=== PATIENT | female | born 1970 | race Caucasian/White ===

== ENCOUNTER 2019-09-20 22:48 | Emergency (ER) | payer MEDICAID, OTHER ==
[~2019-09-20] VITALS: Ht 162.6 cm; Wt 69.5 kg
--- OUTSIDE RECORDS SUMMARY | 2019-09-20 22:53 | XMS REPORT | Clinical Summary ---
Author Author Admin, Mirna Cleveland Organization [facility] Address Unknown Phone Unavailable Allergies, Adverse Reactions, Alerts Allergy Name Reaction Description Start Date Severity Status Pr ovider PCN Critical Active Jose castillo MD Conditions or Problems Problem Name Problem Code Onset Date Status Entry Date Provider Comment Standard Description Annotate BMI 31-31.9 Inactive Jose Bobby MD Body Mass Index 31.0- 31.9, adult Obesity Class I (BMI 30-34.9) Inactive Jose Bobby MD Obesity, unspecified Incontinence Female Stress Resolved Jose Bobby MD Stress incontinence, female Rectocele 618.04 Active Jose Bobby MD Rectocele FEMALE STRESS INCONTINENCE 625.6 Active 2 Jose Bobby MD Stress incontinence, female BMI 31-31.9 Inactive Devi Molina Obesity Class I (BMI 30-34.9) Inactive Devi Molina Incontinence Female Stress Inactive Radha Molina Medication List Medication Instructions Start Date Stop Date Generic Name NDC Status Provider Patient Instruction 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 1 tablet daily RANITIDINE HCL TABS 69726061492 Active Jose Bobby MD Active [facility] OMEPRAZOLE 20 MG ORAL TABLET DELAYED RELEASE once daily 08/15 OMEPRAZOLE 39467727810 Active Jose Bobby MD Active Vital Signs Date Name Value Unit Range Description blood pressure, diastolic, repeated by physician 72 BP woodall blood pressure, diastolic 72 mm[Hg] BP woodall blood pressure, systolic, repeated by physician 118 BP sys blood pressure, systolic 118 mm[Hg] BP sys height E&M 64 [in_us] Bdy height pulse rate E&M 62 /min Heart rate temperature E&M 98.1 [degF] Body temp erature weight E&M 185 [lb_av] Weight Measure d blood pressure, diastolic, repeated by physician 70 BP woodall blood pressure, diastolic 70 mm[Hg] BP woodall blood pressure, systolic, repeated by physician 114 BP sys blood pressure, systolic 114 mm[Hg] BP sys height E&M 64 [in_us] Bdy height pulse rate E&M 63 /min Heart rate temperature E&M 98.3 [degF] Body temp erature weight E&M 185 [lb_av] Weight Measure d blood pressure, diastolic, repeated by physician 74 BP woodall blood pressure, diastolic 74 mm[Hg] BP woodall blood pressure, systolic, repeated by physician 122 BP sys blood pressure, systolic 122 mm[Hg] BP sys height E&M 64 [in_us] Bdy height pulse rate E&M 60 /min Heart rate temperature E&M 98.3 [degF] Body temp erature weight E&M 185 [lb_av] Weight Measure d Diagnostic Results Date Name Value Unit Range Description Office Visit: Post-op sling - PMH sexually transmitted disease no risk noted Encounters Code Encounter Date Provider Facility CPT-44454 Level 4 New Patient 12:33:12 CDT J Rafael rosa MD [facility] Procedures Code Procedure Name Date Entry Date Standard Desc ription CPT-67242 Postop F/U Visit 11:03:05 CDT CPT-08171 Postop F/U Visit 10:40:06 CDT
--- OUTSIDE RECORDS SUMMARY | 2019-09-20 22:53 | XMS REPORT | Clinical Summary ---
Author Author Admin, Mirna Cleveland Organization [facility] Address Unknown Phone Unavailable Allergies, Adverse Reactions, [...] Name NDC Status Provider Patient Instruction ACID FOOD STYLIST TABLET 1 tablet daily RANITIDINE HCL TABS 89688381282 Active Jose Bobby MD Active [facility] OMEPRAZOLE 20 MG ORAL TABLET DELAYED RELEASE once daily 08/15 OMEPRAZOLE 47547932544 Active Jose Bobby MD Active Vital Signs [...] noted Encounters Code Encounter Date Provider Facility CPT-01481 Level 4 New Patient 12:33:12 CDT J Rafael rosa MD [facility] Procedures Code Procedure Name Date Entry Date Standard Desc ription CPT-42851 Postop F/U Visit 11:03:05 CDT CPT-90082 Postop F/U Visit 10:40:06 CDT
--- OUTSIDE RECORDS SUMMARY | 2019-09-20 22:53 | XMS REPORT | Clinical Summary ---
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
--- OUTSIDE RECORDS SUMMARY | 2019-09-20 22:53 | XMS REPORT | Clinical Summary ---
Author Author Admin, Mirna Cleveland Organization [facility] Address Unknown Phone Unavailable Allergies, Adverse [...] Name NDC Status Provider Patient Instruction ACID APARTMENT GROUNDSKEEPER TABLET 1 tablet daily RANITIDINE HCL TABS 08357591172 Active Jose Bobby MD Active [facility] OMEPRAZOLE 20 MG ORAL TABLET DELAYED RELEASE once daily 08/15 OMEPRAZOLE 86688097968 Active Jose Bobby MD Active Vital Signs [...] noted Encounters Code Encounter Date Provider Facility CPT-16459 Level 4 New Patient 12:33:12 CDT J Rafael rosa MD [facility] Procedures Code Procedure Name Date Entry Date Standard Desc ription CPT-81201 Postop F/U Visit 11:03:05 CDT CPT-67920 Postop F/U Visit 10:40:06 CDT
--- OUTSIDE RECORDS SUMMARY | 2019-09-20 22:54 | XMS REPORT | Clinical Summary ---
Author Author Admin, Mirna Cleveland Organization [facility] Address Unknown Phone Unavailable Allergies, Adverse [...] Name NDC Status Provider Patient Instruction ACID EMPLOYMENT CASE MANAGER TABLET 1 tablet daily RANITIDINE HCL TABS 93776333381 Active Jose Bobby MD Active [facility] OMEPRAZOLE 20 MG ORAL TABLET DELAYED RELEASE once daily 08/15 OMEPRAZOLE 19263644113 Active Jose Bobby MD Active Vital Signs Date Name Value Unit Range Description blood pressure, diastolic, repeated by physician 70 [...] noted Encounters Code Encounter Date Provider Facility CPT-86892 Level 4 New Patient 12:33:12 CDT J Rafael rosa MD [facility] Procedures Code Procedure Name Date Entry Date Standard Desc ription CPT-37468 Postop F/U Visit 10:40:06 CDT
--- OUTSIDE RECORDS SUMMARY | 2019-09-20 22:54 | XMS REPORT | Clinical Summary ---
Author Author Admin, Mirna Cleveland Organization [facility] Address Unknown Phone Unavailable Allergies, Adverse Reactions, Alerts Allergy Name Reaction Description Start Date Severity Status Pr ovider PCN Critical Active Jose castillo MD Conditions or Problems Problem Name Problem Code Onset Date Status Entry Date Provider Comment Standard Description Annotate BMI 31-31.9 Active Jose Bobby MD Body Mass Index 31.0- 31.9, adult Obesity Class I (BMI 30-34.9) Active Jose Bobby MD Obesity, unspecified Incontinence Female Stress Active Jose Bobby MD Stress incontinence, female Rectocele 618.04 Active Jose Bobby MD Rectocele Medication List Medication Instructions Start Date Stop Date Generic Name NDC Status Provider Patient Instruction 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 COMMERCIAL REAL 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 ASSISTANT TABLET 1 tablet daily RANITIDINE HCL TABS 73606311690 Active Jose Bobby MD Active [facility] OMEPRAZOLE 20 MG ORAL TABLET DELAYED RELEASE once daily 08/15 OMEPRAZOLE 43530314423 Active Jose Bobby MD Active Vital Signs Date Name Value Unit Range Description blood pressure, diastolic, repeated by physician 74 BP woodall blood pressure, diastolic 74 mm[Hg] BP woodall blood pressure, systolic, repeated by physician 122 BP sys blood pressure, systolic 122 mm[Hg] BP sys height E&M 64 [in_us] Bdy height pulse rate E&M 60 /min Heart rate temperature E&M 98.3 [degF] Body temp erature weight E&M 185 [lb_av] Weight Measure d Encounters Code Encounter Date Provider Facility CPT-58966 Level 4 New Patient 12:33:12 CDT Jose rosa MD [facility]
--- OUTSIDE RECORDS SUMMARY | 2019-09-20 22:54 | XMS REPORT | Clinical Summary ---
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
--- OUTSIDE RECORDS SUMMARY | 2019-09-20 22:54 | XMS REPORT | Continuity of Care Document ---
Author Organization Unknown Address Unknown Phone Unavailable Allergies Active Description Code Type Severity Reaction Onset Reported/Identified Relationship to Patient Clinical Status Yes penicillin Drug Severe swelling~hives Medications There is no data. Problems Date Dx Coded Attending Type Code Diagnosis Diagnosed By 08/15/2018 Jose Poole MD N3 9.3 Incontinence Female Stress 08/15/2018 Jose Poole MD N8 1.6 Rectocele 08/15/2018 Jose Poole MD E6 6.9 Obesity Class I (BMI 30-34.9) 08/15/2018 Jose Poole MD Z68.31 BMI 31-31.9 09/07/2018 Jose Poole MD N3 9.3 FEMALE STRESS INCONTINENCE Procedures There is no data. Results Test Result Range CULTURE, URINE - 08/25/19 12:39 CULTURE, URINE, ROUTINE NRG Encounters ACCT No. Visit Date/Time Discharge Status Pt. Type Provider Facility Loc./Unit Complaint [id number] 09/10/2019 13:10:00 09/10/2019 23:59: 59 CLS Outpatient WHIT LUCIO LAC [facility] [id number] 08/25/2019 12:20:00 Document Registration [id number] 09/04/2018 06:27:51 10:38:00 DIS Outpatient ROSENDO POOLE [id number] 10/06/2018 16:07:19 ACT Document Registration [id number] 09/20/2019 22:50:[address] Emergency VINCENZO TYSON, AMEENA Garcia [facility] FS BACK/RIB PAIN [id number] 10/05/2018 17:30:38 ACT Unknown Jose Poole MD
--- OUTSIDE RECORDS SUMMARY | 2019-09-20 22:54 | XMS REPORT | Clinical Summary ---
Author Author Admin, Mirna Cleveland Organization [facility] Address Unknown Phone Unavailable Allergies, [...] Name NDC Status Provider Patient Instruction ACID BODY TRIMMER TABLET 1 tablet daily RANITIDINE HCL TABS 76251188673 Active Jose Bobby MD Active [facility] OMEPRAZOLE 20 MG ORAL TABLET DELAYED RELEASE once daily 08/15 OMEPRAZOLE 01808048323 Active Jose Bobby MD Active Vital Signs [...] d Encounters Code Encounter Date Provider Facility CPT-24825 Level 4 New Patient 12:33:12 CDT Jose rosa MD [facility]
--- OUTSIDE RECORDS SUMMARY | 2019-09-20 22:54 | XMS REPORT | Clinical Summary ---
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
--- OUTSIDE RECORDS SUMMARY | 2019-09-20 22:54 | XMS REPORT | Clinical Summary ---
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
--- OUTSIDE RECORDS SUMMARY | 2019-09-20 22:54 | XMS REPORT | Clinical Summary ---
Author Author Admin, Mirna Cleveland Organization [facility] Address Unknown Phone Unavailable Allergies, Adverse [...] Rectocele FEMALE STRESS INCONTINENCE 625.6 Active 2 Jsoe Bobby MD Stress incontinence, female BMI 31-31.9 Inactive Devi Molina Obesity Class I (BMI 30-34.9) Inactive Devi Molina Incontinence Female Stress Inactive Radha Molina Medication List Medication Instructions Start Date Stop Date Generic Name NDC Status Provider Patient Instruction ACID SPORTS PHYSIOTHERAPIST TABLET 1 tablet daily RANITIDINE HCL TABS 76921307291 Active Jose Bobby MD Active [facility] OMEPRAZOLE 20 MG ORAL TABLET DELAYED RELEASE once daily 08/15 OMEPRAZOLE 83518807208 Active Jose Bobby MD Active Vital Signs [...] noted Encounters Code Encounter Date Provider Facility CPT-80736 Level 4 New Patient 12:33:12 CDT J Rafael rosa MD [facility] Procedures Code Procedure Name Date Entry Date Standard Desc ription CPT-30843 Postop F/U Visit 10:40:06 CDT
--- OUTSIDE RECORDS SUMMARY | 2019-09-20 22:54 | XMS REPORT | Clinical Summary ---
Author Author Admin, Mirna Cleveland Organization [facility] Address Unknown Phone Unavailable Allergies, [...] Name NDC Status Provider Patient Instruction ACID HEALTHCARE PROF TABLET 1 tablet daily RANITIDINE HCL TABS 13696676956 Active Jose Bobby MD Active [facility] OMEPRAZOLE 20 MG ORAL TABLET DELAYED RELEASE once daily 08/15 OMEPRAZOLE 79903778220 Active Jose Bobby MD Active Vital Signs [...] noted Encounters Code Encounter Date Provider Facility CPT-09506 Level 4 New Patient 12:33:12 CDT J Rafael rosa MD [facility] Procedures Code Procedure Name Date Entry Date Standard Desc ription CPT-35645 Postop F/U Visit 10:40:06 CDT
--- OUTSIDE RECORDS SUMMARY | 2019-09-20 22:54 | XMS REPORT | Clinical Summary ---
Author Author Admin, Mirna Cleveland Organization [facility] Address Unknown Phone Unavailable Allergies, Adverse [...] Name NDC Status Provider Patient Instruction ACID GREEN FEED ATTENDANT TABLET 1 tablet daily RANITIDINE HCL TABS 23054941756 Active Jose Bobby MD Active [facility] OMEPRAZOLE 20 MG ORAL TABLET DELAYED RELEASE once daily 08/15 OMEPRAZOLE 32686723353 Active Jose Bobby MD Active Vital Signs [...] d Encounters Code Encounter Date Provider Facility CPT-56599 Level 4 New Patient 12:33:12 CDT Jose rosa MD [facility]
--- OUTSIDE RECORDS SUMMARY | 2019-09-20 22:54 | XMS REPORT | Clinical Summary ---
Author Author Admin, Mirna Cleveland Organization 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
--- NOTE | 2019-09-20 23:08 | ED Back Pain ---
General Chief Complaint: Back Problems Stated Complaint: BACK/RIB PAIN Source of Information: Patient Exam Limitations: No Limitations History of Present Illness Date Seen by Provider: Sep 20, 2019 Time Seen by Provider: 22:58 Location: Lumbar Spine Timing/Duration: 3-4 Days Severity: Moderate Pain/Injury Location: Back Radiation: Other (none) Method of Injury: Fall (while jumping rope) Associated Symptoms: muscle spasms; No fever, No weakness, No numbness in legs/feet, No sensory/motor loss; lower back pain; No loss of bladder control, No loss of bowel control Allergies and Home Medications Allergies Coded Allergies: Penicillins (Verified Allergy, Unknown, 09/20/19) Patient Home Medication List Home Medication List Reviewed: Yes Review of Systems Constitutional: no symptoms reported EENTM: no symptoms reported Respiratory: no symptoms reported Cardiovascular: no symptoms reported Gastrointestinal: no symptoms reported Genitourinary: no symptoms reported : No (s/p hysterectomy) Musculoskeletal: see HPI, back pain Skin: no symptoms reported Psychiatric/Neurological: No Symptoms Reported Past Szktesp-Xiobfj-Etjtge Hx Past Med/Social Hx: Reviewed Nursing Past Med/Soc Hx Patient Social History Alcohol Use: Occasionally Uses Recreational Drug Use: No Smoking Status: Current Everyday Smoker 2nd Hand Smoke Exposure: No Recent Foreign Travel: No Contact w/Someone Who Travel: No Recent Hopitalizations: No Physical Abuse: No Sexual Abuse: No Mistreated: No Fear: No Seasonal Allergies Seasonal Allergies: No Past Medical History Surgeries: Yes Appendectomy, Gallbladder, Hysterectomy Respiratory: No Cardiac: No Neurological: No Genitourinary: No Gastrointestinal: No Musculoskeletal: No Endocrine: No HEENT: No Cancer: No Psychosocial: No Integumentary: No Blood Disorders: No Physical Exam Vital Signs Vital Signs - First Documented 09/20/19 22:59 Temp 36.4 Pulse 120 Resp 20 B/P (MAP) 155/82 (106) Pulse Ox 96 O2 Delivery Room Air Capillary Refill : normal Height, Weight, BMI Height: '" Weight: lbs. oz. kg; BMI Method: General Appearance: No Apparent Distress, WD/WN; No Anxious HEENT: PERRL/EOMI, Normal ENT Inspection, Pharynx Normal Neck: Full Range of Motion, Normal Inspection, Non Tender, Supple Cardiovascular: Regular Rate, Rhythm, No Edema, No Gallop, No JVD, No Murmur, Normal Peripheral Pulses Respiratory: Chest Non Tender, Lungs Clear, Normal Breath Sounds, No Accessory Muscle Use, No Respiratory Distress Peripheral Pulses: 2+ Dorsalis Pedis (R), 2+ Left Dors-Pedis (L) Gastrointestinal: Normal Bowel Sounds, No Organomegaly, No Pulsatile Mass, Non Tender, Soft Back: Normal Inspection, No CVA Tenderness, Decreased Range of Motion, Vertebral Tenderness (upper lumbar region) Extremity: Normal Capillary Refill, Normal Inspection, Normal Range of Motion, Non Tender, No Calf Tenderness Neurologic/Psychiatric: Alert, Oriented x3, No Motor/Sensory Deficits, Normal Mood/Affect, 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-XII Norm as Tested, Other (reflexes 2+/4+ throughout both LE) Skin: Normal Color, Warm/Dry Lymphatic: No Adenopathy Progress/Results/Core Measures Results/Orders Lab Results Laboratory Tests Test 09/20/19 23:14 Range/Units Urine Color DARK YELLOW Urine Clarity CLEAR Urine pH 6.0 5-9 Urine Specific [place] 1.025 H 1.016-1.022 Urine Protein NEGATIVE NEGATIVE Urine Glucose (UA) NEGATIVE NEGATIVE Urine Ketones TRACE H NEGATIVE Urine Nitrite NEGATIVE NEGATIVE Urine Bilirubin 2+ H NEGATIVE Urine Urobilinogen >=8.0 < = 1.0 MG/DL Urine Leukocyte Esterase TRACE H NEGATIVE Urine RBC (Auto) NEGATIVE NEGATIVE Urine RBC 0-2 /HPF Urine WBC 5-10 H /HPF Urine Squamous Epithelial Cells 5-10 /HPF Urine Crystals NONE /LPF Urine Bacteria FEW H /HPF Urine Casts NONE /LPF Urine Mucus LARGE H /LPF Urine Culture Indicated YES My Orders Orders - AMEENA LOYA MD Ua Culture If Indicated (09/20/19 23:02) Lumbar Spine 2 Or 3 View (09/20/19 23:14) Urine Culture (09/20/19 23:14) Vital Signs/I&O 09/20/19 22:59 Temp 36.4 Pulse 120 Resp 20 B/P (MAP) 155/82 (106) Pulse Ox 96 O2 Delivery Room Air Progress Progress Note : Time: 23:07 Progress Note Will proceed with x-rays of lumbar region and UA. No pain in chest area or CVAT. Pt understands and agrees with plan. Diagnostic Imaging Diagonstic Imaging: Xray Plain Films/CT/US/NM/MRI: other (lumbar spine) Comments No acute changes noted. Reviewed: Reviewed by Me, Reviewed/Discussed Departure Impression Primary Impression: Lumbar sprain Qualified Codes: S33.5XXA - Sprain of ligaments of lumbar spine, initial encounter Additional Impression: Lumbar contusion Qualified Codes: S30.0XXA - Contusion of lower back and pelvis, initial encounter Disposition: 01 HOME, SELF-CARE Condition: Stable Departure-Patient Inst. Decision time for Depature: 23:46 Referrals: GOLDEN RUSSELL MD Primary Care Physician 2-3 days Patient Instructions: Lumbar Muscle Strain (DC) Add. Discharge Instructions: continue your ibuprofen. Be careful with muscle relaxant as it can make you drowsy. Do not drive or perform other hazardous activities while you are taking this. All discharge instructions reviewed with patient and/or family. Voiced understanding. Scripts Cyclobenzaprine HCl (Cyclobenzaprine HCl) 10 Mg Tablet 10 MG PO Q8H PRN for SPASMS, #15 TAB 0 Refills Prov: AMEENA LOYA MD 09/20/19 AMEENA LOYA MD Sep 20, 2019 23:08
[2019-09-20 23:26] LABS: BILIRUBIN,URINE 2+ (NEGATIVE); CLARITY,URINE CLEAR; COLOR,URINE DARK YELLOW; GLUCOSE, URINE (UA) NEGATIVE (NEGATIVE); KETONES,URINE TRACE (NEGATIVE); NITRITE,URINE NEGATIVE (NEGATIVE); PROTEIN,URINE NEGATIVE (NEGATIVE)
[2019-09-20 23:27] LABS: BACTERIA,URINE FEW /HPF; LEUKOCYTE ESTERASE ,URINE TRACE (NEGATIVE); RBC,URINE 0-2 /HPF
[2019-09-20] MEDS ORDERED: CYCL10TA9 PO (23:48)
[2019-09-20 23:50] VITALS: BP 155/82
--- NOTE | 2019-09-21 09:32 | Diagnostic Imaging Report ---
INDICATION: Pain COMPARISON: None available TECHNIQUE: 3 radiographs of the lumbar spine dated 09/20/2019. FINDINGS: Surgical clips are present within the right upper quadrant of the abdomen. 5 lumbar type vertebral bodies are present. Alignment of the lumbar spine is well maintained. Vertebral body heights are well-maintained. Disc space heights are well-maintained. No acute fracture or dislocation. The sacroiliac joints appear intact. Vascular calcifications versus postsurgical changes associated with the pelvis bilaterally. IMPRESSION: No acute osseous abnormality. Dictated by: Dictated on workstation # [id number]
== END 2019-09-20 23:50 | disposition home or self-care (01) ==
LOC: ER FS 22:50
DX: S33.5XXA Sprain of ligaments of lumbar spine, initial encounter (principal); Z88.0 Allergy status to penicillin; W18.39XA Other fall on same level, initial encounter; Y93.56 Activity, jumping rope
CPT/HCPCS: 72100; 81000; 87088

== ENCOUNTER 2019-10-06 21:50 | Emergency (ER) | payer MEDICAID ==
[~2019-10-06] VITALS: Ht 162.5 cm; Wt 86.3 kg
[~2019-10-06 21:50] MED LIST: CYCL10TA9 PO
--- OUTSIDE RECORDS SUMMARY | 2019-10-06 21:57 | XMS REPORT | Continuity of Care Document ---
Author Organization Unknown Address Unknown Phone Unavailable Allergies Active Description Code Type Severity Reaction Onset Reported/Identified Relationship to Patient Clinical Status Yes penicillin Drug Severe swelling~hives Yes No Known Drug Allergies [id number] Drug Allergy Unknown N/A 09/20/2019 Yes Penicillins [id number] Drug Aller gy Unknown N/A 09/20/2019 Medications There is no data. Problems Date Dx Coded Attending Type Code Diagnosis Diagnosed By 08/15/2018 Jose Poole MD N3 9.3 Incontinence Female Stress 08/15/2018 Jose Poole MD N8 1.6 Rectocele 08/15/2018 Jose Poole MD E6 6.9 Obesity Class I (BMI 30-34.9) 08/15/2018 Jose Poole MD Z68.31 BMI 31-31.9 09/07/2018 Jose Poole MD N3 9.3 FEMALE STRESS INCONTINENCE 09/20/2019 AMEENA LOYA MD, Ot M54.5 LOW BACK PAIN 09/20/2019 AMEENA LOYA MD, Ot S33.5XX A SPRAIN OF LIGAMENTS OF LUMBAR SPINE, INI 09/20/2019 AMEENA LOYA MD, Ot W18.39X A OTHER FALL ON SAME LEVEL, INITIAL ENCOUN 09/20/2019 AMEENA LOYA MD, Ot Y93.56 ACTIVITY, JUMPING ROPE 09/20/2019 AMEENA LOYA MD, Ot Z88.0 ALLERGY STATUS TO PENICILLIN Procedures There is no data. Results Test Result Range CULTURE, URINE - 08/25/19 12:39 CULTURE, URINE, ROUTINE NRG Complete urinalysis with reflex to cultu re - 09/20/19 23:14 Urine color determination DARK YELLOW N RG Urine clarity determination CLEAR NR G Urine pH measurement by test strip 6.0 5-9 Specific gravity of urine by test strip 1.025 1.016-1.022 Urine protein assay by test strip, semi-quantitative NEGATIVE NEGATIVE Urine glucose detection by automated test strip NE GATIVE NEGATIVE Erythrocytes detection in urine sediment by light micr oscopy NEGATIVE NEGATIVE Urine ketones detection by automated test strip TR MIGDALIA NEGATIVE Urine nitrite detection by test strip NEGATIVE NEGATIVE Urine total bilirubin detection by test strip 2+ NEGATIVE Urine urobilinogen measurement by automated test strip (mass/volume) >= mg/dL < = 1.0 Urine leukocyte esterase detection by dipstick TRA CE NEGATIVE Automated urine sediment erythrocyte cou nt by microscopy (number/high power field) [HPF] NRG Automated urine sediment leukocyte count by microscopy (number/high power field) [HPF] NRG Bacteria detection in urine sediment by light microsco py FEW NRG Squamous epithelial cells detection in u rine sediment by light microscopy 5-10 NRG Crystals detection in urine sediment by light microsco py NONE NRG Casts detection in urine sediment by light microscopy NONE NRG Mucus detection in urine sediment by light microscopy LARGE NRG Complete urinalysis with reflex to culture YES NRG Bacterial urine culture - 09/20/19 23:14 Bacterial urine culture 3 OR MORE NRG COLONY COUNT >100,000/ML NRG SUSCEPTIBILITY (GRAM POSITIVE) SUGGESTING PROBABLE NRG MRSA SCREEN COLLECTION CONTAMINATION WITH SKIN NRG RAPID ID ERINN. NO SUSCEPTIBILITY PERFORMED NRG Encounters ACCT No. Visit Date/Time Discharge Status Pt. Type Provider Facility Loc./Unit Complaint [id number] 09/10/2019 13:10:00 09/10/2019 23:59: 59 [facility] [id number] 08/25/2019 12:20:00 Document Registration [id number] 09/04/2018 06:27:51 9 10:38:00 DIS Outpatient ROSENDO POOLE [facility] ops [id number] 10/06/2018 16:07:19 ACT Document Registration [id number] 09/20/2019 22:50:00 020 23:50:00 DIS Emergency VINCENZO TYSON, AMEENA Kumari a [facility] ER FS BACK/RIB PAIN [id number] 10/06/2019 21:53:[address] Emergency MISA TYSON, MARIA M Frankel [facility] ER FS BILATERL SWELLING IN LEGS [id number] 10/05/2018 17:30:38 ACT Unknown Jose Poole MD
--- NOTE | 2019-10-06 22:05 | ED Lower Extremity ---
General Chief Complaint: Lower Extremity Stated Complaint: BILATERL SWELLING IN LEGS Source: patient, RN notes reviewed, old records History of Present Illness Date Seen by Provider: Oct 06, 2019 Time Seen by Provider: 21:55 Initial Comments This patient is a 49-year-old female that presents to the emergency department with complaint of bilateral lower leg swelling. Patient states this is been going on for about 3 or 4 days. Patient states she has chronic low back pain has been going on for some time. Patient has a scheduled appointment with her PCP tomorrow. Patient denies any shortness of breath. Patient is aware that we do not have ultrasound available and we will offered full medical screening exam to her capabilities. Patient states understanding. Onset: last week Pain/Injury Location: bilateral leg Allergies and Home Medications Allergies Coded Allergies: Penicillins (Verified Allergy, Unknown, 09/20/19) Home Medications Cyclobenzaprine HCl 10 Mg Tablet, 10 MG PO Q8H PRN for SPASMS Prescribed by: AMEENA LOYA on 09/20/19 [id number] Patient Home Medication List Home Medication List Reviewed: Yes Review of Systems Constitutional: No no symptoms reported, No see HPI, No chills, No diaphoresis, No dizziness, No fever, No malaise, No weakness, No weight gain, No weight loss, No other EENTM: No see HPI, No no symptoms reported, No ear discharge, No hearing loss, No ear pain, No blurred vision, No double vision, No eye pain, No tearing, No vision loss, No dental problems, No hoarseness, No mouth pain, No mouth swellin g, No epistaxis, No nose congestion, No nose pain, No throat pain, No throat swelling, No other Respiratory: No no symptoms reported, No see HPI, No cough, No dyspnea on exertion, No hemoptysis, No orthopnea, No phlegm, No short of breath, No stridor, No wheezing, No other Cardiovascular: No no symptoms reported, No see HPI, No chest pain, No edema, No Hx of Intervention, No palpitations, No syncope, No vascular heart diseas, No other Gastrointestinal: No RUQ, No LUQ, No RLQ, No LLQ, No no symptoms reported, No see HPI, No abdominal pain, No constipation, No diarrhea, No dysphagia, No hematemesis, No heartburn, No jaundice, No loss of appetite, No melena, No nausea, No vomiting, No other Musculoskeletal: see HPI, joint swelling Skin: No no symptoms reported, No see HPI, No change in color, No change in hair/nails, No dryness, No hx of skin cancer, No lesions, No lumps, No pruritus, No rash, No other All Other Systems Reviewed Negative Unless Noted: Yes Past Qftdaam-Inmtir-Gvclge Hx Patient Social History 2nd Hand Smoke Exposure: No Recent Foreign Travel: No Contact w/Someone Who Travel: No Recent Hopitalizations: No Seasonal Allergies Seasonal Allergies: No Past Medical History Surgeries: Yes Appendectomy, Gallbladder, Hysterectomy Respiratory: No Cardiac: No Neurological: No Genitourinary: No Gastrointestinal: No Musculoskeletal: No Endocrine: No HEENT: No Cancer: No Psychosocial: No Integumentary: No Blood Disorders: No Physical Exam Vital Signs Vital Signs - First Documented 10/06/19 21:59 Temp 36.6 Pulse 138 Resp 20 B/P (MAP) 141/92 (108) Pulse Ox 95 O2 Delivery Room Air Capillary Refill : Height, Weight, BMI Height: '" Weight: lbs. oz. kg; 26.00 BMI Method: General Appearance: WD/WN, no apparent distress Cardiovascular: normal peripheral pulses, regular rate, rhythm, no edema, no gallop, no JVD, no murmur Respiratory: chest non-tender, lungs clear, normal breath sounds, no respiratory distress, no accessory muscle use Gastrointestinal: normal bowel sounds, non tender, soft, no organomegaly, no pulsatile mass Legs: bilateral leg swelling Ankles: bilateral ankle swelling Skin: normal color, warm/dry Progress/Results/Core Measures Results/Orders Lab Results Laboratory Tests Test 10/06/19 22:20 Range/Units White Blood Count 13.3 H 4.3-11.0 10^3/uL Red Blood Count 4.04 L 4.35-5.85 10^6/uL Hemoglobin 12.6 11.5-16.0 G/DL Hematocrit 37 35-52 % Mean Corpuscular Volume 93 80-99 FL Mean Corpuscular Hemoglobin 31 25-34 PG Mean Corpuscular Hemoglobin Concent 34 32-36 G/DL Red Cell Distribution Width 17.0 H 10.0-14.5 % Platelet Count 42 L 130-400 10^3/uL Mean Platelet Volume 11.8 H 7.4-10.4 FL Neutrophils (%) (Auto) 69 42-75 % Lymphocytes (%) (Auto) 19 12-44 % Monocytes (%) (Auto) 6 0-12 % Eosinophils (%) (Auto) 0 0-10 % Basophils (%) (Auto) 1 0-10 % Neutrophils # (Auto) 9.2 H 1.8-7.8 X 10^3 Lymphocytes # (Auto) 2.6 1.0-4.0 X 10^3 Monocytes # (Auto) 0.9 0.0-1.0 X 10^3 Eosinophils # (Auto) 0.0 0.0-0.3 10^3/uL Basophils # (Auto) 0.1 0.0-0.1 10^3/uL D-Dimer > 20.00 *H 0.00-0.49 UG/ML Sodium Level 137 135-145 MMOL/L Potassium Level 3.8 3.6-5.0 MMOL/L Chloride Level 97 L 98-107 MMOL/L Carbon Dioxide Level 21 21-32 MMOL/L Anion Gap 19 H 5-14 MMOL/L Blood Urea Nitrogen 12 7-18 MG/DL Creatinine 0.57 L 0.60-1.30 MG/DL Estimat Glomerular Filtration Rate > 60 BUN/Creatinine Ratio 21 Glucose Level 114 H 70-105 MG/DL Calcium Level 9.0 8.5-10.1 MG/DL Corrected Calcium 9.2 8.5-10.1 MG/DL Total Bilirubin 4.6 H 0.1-1.0 MG/DL Aspartate Amino Transf (AST/SGOT) 193 H 5-34 U/L Alanine Aminotransferase (ALT/SGPT) 151 H 0-55 U/L Alkaline Phosphatase 1164 H 40-136 U/L Troponin I < 0.30 <0.30 NG/ML Pro-B-Type Natriuretic Peptide 397.9 H <75.0 PG/ML Total Protein 6.3 L 6.4-8.2 GM/DL Albumin 3.8 3.2-4.5 GM/DL My Orders Orders - MARIA M BYNUM MD Ed Iv/Invasive Line Start (10/06/19 22:01) Cbc With Automated Diff (10/06/19 22:01) Comprehensive Metabolic Panel (10/06/19 22:01) Drug Screen Stat (Urine) (10/06/19 22:01) Fibrin Degradation Products (10/06/19 22:01) Probnp Fs (10/06/19 22:01) Chest 1 View Ap/Pa Only (10/06/19 22:01) Ekg Tracing (10/06/19 22:01) Urinalysis (10/06/19 22:01) Troponin I Fs (10/06/19 22:01) Iohexol Injection (Omnipaque 350 Mg/Ml 1 (10/06/19 22:45) Received Contrast (Hold Metformin- Contr (10/06/19 22:45) Ns (Ivpb) (Sodium Chloride 0.9% Ivpb Bag (10/06/19 22:45) Ct Chest W (10/06/19 22:42) Enoxaparin Injection (Lovenox Injection) (10/07/19 00:15) Medications Given in ED Current Medications Medications Dose Ordered Sig/Josr Route Start Time Stop Time Status Last Admin Dose Admin Enoxaparin Sodium 80 mg ONCE ONCE SC 10/07/19 00:15 10/07/19 00:16 DC 10/07/19 00:27 80 MG Iohexol 100 ml ONCE ONCE IV 10/06/19 22:45 10/06/19 22:47 DC 10/06/19 23:09 75 ML Sodium Chloride 100 ml ONCE ONCE IV 10/06/19 22:45 10/06/19 22:47 DC 10/06/19 23:08 100 ML Vital Signs/I&O 10/06/19 21:59 Temp 36.6 Pulse 138 Resp 20 B/P (MAP) 141/92 (108) Pulse Ox 95 O2 Delivery Room Air Progress Progress Note : Time: 00:35 Progress Note Abnormal chest x-ray concerning for lung mass prompted the CT of the chest that did confirm with patient does appear to have metastatic lung cancer to spine. Patient will need further imaging and evaluation. Bilateral lower extremity edema we will give Lovenox. Patient unable to have ultrasound tonight. Patient was agreeable to be transferred to [facility]. Patient will be transferred as soon as possible patient be seen by . He will see patient upon arrival. Initial ECG Impression Date: Oct 06, 2019 Initial ECG Impression Time: 22:07 Initial ECG Rate: 129 Initial ECG Rhythm: S.Tach Initial ECG Intervals: Normal Initial ECG Impression: Nonspecific Changes Comment Sinus tachycardia with a heart rate of 129 nonspecific EKG changes. Departure Impression Primary Impression: Metastatic primary lung cancer Additional Impressions: Swelling of lower extremity Elevated liver enzymes Elevated d-dimer Disposition: XF SHT-TRM HOSP Condition: Stable Transfer Transfer Reason: Exceeds level of care Time Spoke to Accepting Phy: 00:07 Transfer Progress Notes Patient be transferred to [facility] for Dr Vo. Transfer Time: 00:07 Transfer Facility: [facility] Method of Transfer: EMS Departure-Patient Inst. Referrals: AMEENA PERALES MD (PCP/Family) Primary Care Physician MARIA M BYNUM MD Oct 06, 2019 22:05
[2019-10-06 22:30] LABS: WHITE BLOOD COUNT 13.3 10^3/uL (4.3-11.0)
[2019-10-06 22:31] LABS: BASOPHILS # (AUTO) 0.1 10^3/uL (0.0-0.1); BASOPHILS % (AUTO) 1 % (0-10); EOSINOPHILS % (AUTO) 0 % (0-10); HEMATOCRIT 37 % (35-52); HEMOGLOBIN 12.6 G/DL (11.5-16.0); LYMPHOCYTES # (AUTO) 2.6 X 10^3 (1.0-4.0); LYMPHOCYTES % (AUTO) 19 % (12-44); MEAN CORPUSCULAR HEMOGLOBIN 31 PG (25-34); MEAN CORPUSCULAR HGB CONC 34 G/DL (32-36); MEAN CORPUSCULAR VOLUME 93 FL (80-99); MEAN PLATELET VOLUME 11.8 FL (7.4-10.4); MONOCYTES # (AUTO) 0.9 X 10^3 (0.0-1.0); MONOCYTES % (AUTO) 6 % (0-12); NEUTROPHILS # (AUTO) 9.2 X 10^3 (1.8-7.8); NEUTROPHILS % (AUTO) 69 % (42-75); PLATELET COUNT 42 10^3/uL (130-400)
[2019-10-06] MEDS ORDERED: NS 100 ML (IVPB) BAG IV ONE (22:45)
[2019-10-06] MEDS ORDERED: IOHEXOL 350 MG/ML 100 ML (OMNIPAQUE 350) VIAL IV ONE (22:45)
[2019-10-06] MEDS ORDERED: HOLD METFORMIN - RECEIVED CONTRAST 20 ML VIAL IV SCH (22:45)
[2019-10-06 22:49] LABS: ALANINE AMINOTRANSFERASE 151 U/L (0-55); ALBUMIN 3.8 GM/DL (3.2-4.5); ALKALINE PHOSPHATASE 1164 U/L (40-136); BILIRUBIN,TOTAL 4.6 MG/DL (0.1-1.0); BUN/CREATININE RATIO 21; CARBON DIOXIDE 21 MMOL/L (21-32); CHLORIDE 97 MMOL/L (98-107); CREATININE SERUM 0.57 MG/DL (0.60-1.30); GFR ESTIMATED > 60; GLUCOSE 114 MG/DL (70-105); POTASSIUM 3.8 MMOL/L (3.6-5.0); SODIUM 137 MMOL/L (135-145); TOTAL PROTEIN 6.3 GM/DL (6.4-8.2)
--- NOTE | 2019-10-07 00:02 | NUR ---
Dr. Ortiz in to see pt. Pt given results of possible lung cancer and need to be transferred to [facility] for further evaluation and treatment. Pt very calm with flat affect after receiving the news. Pt then agrees for transfer to .
--- NOTE | 2019-10-07 00:10 | NUR ---
Pt was unable to produce urine sample.
[2019-10-07] MEDS ORDERED: ENOXAPARIN 80 MG/0.8 ML (LOVENOX) SYR SC ONE (00:15)
--- NOTE | 2019-10-07 00:20 | NUR ---
Room number at received. [facility] at EMS contacted for BLS transfer to .
--- NOTE | 2019-10-07 00:56 | NUR ---
EMS present. Report and paperwork given.
[2019-10-07] MEDS ORDERED: morphine INJ 10 MG/ML 1ML (SYR OR VIAL) IVP STA (01:12)
[2019-10-07] MEDS ORDERED: ONDANSETRON 4 MG/2 ML (SDV) Z0FRAN ONE (01:12)
[2019-10-07] MEDS ORDERED: ONDANSETRON 4 MG/2 ML (SDV) Z0FRAN IVP ONE (01:15)
--- NOTE | 2019-10-07 01:25 | NUR ---
EMS left with pt for [facility].
--- NOTE | 2019-10-07 01:44 | NUR ---
Report called to INDRA Landa at .
[2019-10-07 01:56] VITALS: BP 138/81
--- NOTE | 2019-10-07 06:15 | Diagnostic Imaging Report ---
INDICATION: Leg swelling 3 days ago. TECHNIQUE: Single view chest 10:11 PM. CORRELATION STUDY: None FINDINGS: There is significant consolidation about the right lung base which obscures right heart border and diaphragm. Likely consolidation or perhaps masslike appearance. Probable effusion. There is abnormal widening and contour prominence about the superior mediastinum right greater than left. Does raise concern for mass and/or adenopathy. IMPRESSION: 1. Abnormal chest. Likely large area of consolidation at the right lung base along with effusion. 2. Lobulated contour and prominence of the mediastinum and right hilum does raise concern for potential mass and/or adenopathy. Dictated by: Dictated on workstation # [id number]
--- NOTE | 2019-10-07 07:08 | Diagnostic Imaging Report ---
PROCEDURE: CT chest with contrast only. TECHNIQUE: Multiple contiguous axial images were obtained through the chest after administration of intravenous contrast. Auto Exposure Controls were utilized during the CT exam to meet ALARA standards for radiation dose reduction. INDICATION: Leg edema. Noted mass on chest radiograph. CORRELATION STUDY: None FINDINGS: Heart size within normal limits. Small pericardial effusion is present. Thoracic aorta unremarkable. There is presence of rather significantly enlarged mediastinal and hilar lymph nodes. Largest somewhat consolidated mass in the high right paratracheal region measures approximately 6 x 4.2 cm. Left anterior superior mediastinal lymph node mass 3.2 x 2.7 cm. Right hilar mass of 4.8 x 4.9 cm. There is rather extensive masslike consolidation through the right mid lung. Small right pleural effusion. There is soft tissue nodularity associated with the pleural effusion. Left lung demonstrates multiple predominantly subcentimeter pulmonary masses. Visualized portion upper abdomen demonstrates a rather extensively enlarged liver with a fairly heterogeneous nodular appearance does raise concern for extensive hepatic metastatic disease. Bilateral adrenal gland masses are also present. Lucent lesion spine concerning for potential osseous metastasis. IMPRESSION: 1. Extensive mediastinal and right hilar lymphadenopathy concerning for malignancy. Could be metastatic or primary lymphoma. 2. Masslike consolidation right lung is present. Large portion may be a postobstructive consolidation but does raise concern for underlying neoplasm as well. Additional smaller, predominantly subcentimeter nodules are scattered throughout the left lung as well. Small right pleural effusion with nodular appearance concerning for metastatic pleural effusion. 3. Rather enlarged liver with fairly heterogeneous nodular appearance does raise concern for extensive hepatic metastatic disease with infiltration. 4. Lucency of the osseous structures does raise concern for osseous metastatic disease. 5. Nodular appearance about both adrenal glands concerning for adrenal metastasis along with upper abdominal lymphadenopathy. A preliminary report was provided by [employer]. Dictated by: Dictated on workstation # [id number]
== END 2019-10-07 01:28 | disposition short-term general hospital (02) ==
LOC: EDUNIT# 21:50 → ER FS 21:53
DX: C34.90 Malignant neoplasm of unspecified part of unspecified bronchus or lung (principal); C79.51 Secondary malignant neoplasm of bone; R22.43 Localized swelling, mass and lump, lower limb, bilateral; R94.5 Abnormal results of liver function studies; R79.1 Abnormal coagulation profile; Z88.0 Allergy status to penicillin
CPT/HCPCS: 36415; 71045; 71260; 80053; 83880; 84484; 85379; 93005

== ENCOUNTER → 2019-10-17 | Outpatient (CLI) | payer MEDICAID ==
[2019-10-17 13:20] LABS: HEMATOCRIT 33 % (35-52); HEMOGLOBIN 11.1 G/DL (11.5-16.0); MEAN CORPUSCULAR HEMOGLOBIN 31 PG (25-34); MEAN CORPUSCULAR HGB CONC 33 G/DL (32-36); MEAN CORPUSCULAR VOLUME 92 FL (80-99); RED CELL DISTRIBUTION WIDTH 17.5 % (10.0-14.5); WHITE BLOOD COUNT 3.8 10^3/uL (4.3-11.0)
[2019-10-17 13:27] LABS: PLATELET COUNT 28 10^3/uL (130-400)
[2019-10-17 13:28] LABS: BASOPHILS % (AUTO) 1 % (0-10); LYMPHOCYTES % (AUTO) 27 % (12-44); NEUTROPHILS % (AUTO) 57 % (42-75)
[2019-10-17 13:29] LABS: EOSINOPHILS % (AUTO) 1 % (0-10); MONOCYTES # (AUTO) 0.5 X 10^3 (0.0-1.0); MONOCYTES % (AUTO) 13 % (0-12); NEUTROPHILS # (AUTO) 2.2 X 10^3 (1.8-7.8)
[2019-10-17 13:55] LABS: CARBON DIOXIDE 23 MMOL/L (21-32); CHLORIDE 100 MMOL/L (98-107); POTASSIUM 4.4 MMOL/L (3.6-5.0); SODIUM 136 MMOL/L (135-145)
[2019-10-17 13:56] LABS: ALANINE AMINOTRANSFERASE 165 U/L (0-55); ALBUMIN 3.6 GM/DL (3.2-4.5); ALKALINE PHOSPHATASE 1069 U/L (40-136); BILIRUBIN,TOTAL 4.2 MG/DL (0.1-1.0); BUN/CREATININE RATIO 41; CALCIUM 8.8 MG/DL (8.5-10.1); CREATININE SERUM 0.34 MG/DL (0.60-1.30); GFR ESTIMATED > 60; GLUCOSE 102 MG/DL (70-105); TOTAL PROTEIN 6.5 GM/DL (6.4-8.2)
== END ==
LOC: LAB FS 12:43
PROVIDERS: ATTEND Internal Medicine Hematology & Oncology
DX: C34.90 Malignant neoplasm of unspecified part of unspecified bronchus or lung (principal)
CPT/HCPCS: 36415; 80053; 85025

== ENCOUNTER 2019-10-24 17:27 | Outpatient (RCR) | payer MEDICAID ==
[2019-10-24 16:43] LABS: BASOPHILS % (AUTO) 0 % (0-10); EOSINOPHILS % (AUTO) 0 % (0-10); HEMATOCRIT 30 % (35-52); LYMPHOCYTES # (AUTO) 2.1 X 10^3 (1.0-4.0); LYMPHOCYTES % (AUTO) 47 % (12-44); MEAN CORPUSCULAR HEMOGLOBIN 31 PG (25-34); MEAN CORPUSCULAR HGB CONC 33 G/DL (32-36); MEAN CORPUSCULAR VOLUME 94 FL (80-99); MEAN PLATELET VOLUME 11.2 FL (7.4-10.4); MONOCYTES # (AUTO) 0.4 X 10^3 (0.0-1.0); MONOCYTES % (AUTO) 9 % (0-12); NEUTROPHILS # (AUTO) 1.9 X 10^3 (1.8-7.8); NEUTROPHILS % (AUTO) 73 % (42-75); PLATELET COUNT 118 10^3/uL (130-400); WHITE BLOOD COUNT 4.5 10^3/uL (4.3-11.0)
[2019-10-24 17:09] LABS: BUN/CREATININE RATIO 11; CARBON DIOXIDE 26 MMOL/L (21-32); CHLORIDE 104 MMOL/L (98-107); CREATININE SERUM 0.45 MG/DL (0.60-1.30); GFR ESTIMATED > 60; GLUCOSE 107 MG/DL (70-105); MAGNESIUM 1.8 MG/DL (1.6-2.4); POTASSIUM 3.3 MMOL/L (3.6-5.0); SODIUM 141 MMOL/L (135-145)
[2019-10-24 17:10] LABS: ALANINE AMINOTRANSFERASE 119 U/L (0-55); ALBUMIN 3.6 GM/DL (3.2-4.5); ALKALINE PHOSPHATASE 1057 U/L (40-136); BILIRUBIN,TOTAL 2.1 MG/DL (0.1-1.0); TOTAL PROTEIN 6.7 GM/DL (6.4-8.2)
[2019-11-15] MEDS ORDERED: HYDR-4226 PO (10:02)
== END 2019-10-25 17:27 | disposition home or self-care (01) ==
LOC: LAB FS 10-25 13:20
PROVIDERS: ATTEND Internal Medicine Hematology & Oncology
DX: Z01.89 Encounter for other specified special examinations (principal)
CPT/HCPCS: 80053; 83615; 83735; 85025

== ENCOUNTER → 2019-11-06 | Outpatient (CLI) | payer MEDICAID ==
[2019-11-06 16:19] LABS: BUN/CREATININE RATIO 10; CALCIUM 9.2 MG/DL (8.5-10.1); CARBON DIOXIDE 27 MMOL/L (21-32); CHLORIDE 100 MMOL/L (98-107); GFR ESTIMATED > 60; GLUCOSE 100 MG/DL (70-105); POTASSIUM 3.2 MMOL/L (3.6-5.0); SODIUM 140 MMOL/L (135-145)
[2019-11-06 16:52] LABS: HEMATOCRIT 30 % (35-52); HEMOGLOBIN 9.8 G/DL (11.5-16.0); MEAN CORPUSCULAR HEMOGLOBIN 32 PG (25-34); MEAN CORPUSCULAR HGB CONC 33 G/DL (32-36); MEAN CORPUSCULAR VOLUME 96 FL (80-99); WHITE BLOOD COUNT 13.7 10^3/uL (4.3-11.0)
[2019-11-06 16:53] LABS: BASOPHILS % (AUTO) 1 % (0-10); EOSINOPHILS % (AUTO) 0 % (0-10); LYMPHOCYTES % (AUTO) 18 % (12-44); MEAN PLATELET VOLUME 10.1 FL (7.4-10.4); MONOCYTES % (AUTO) 11 % (0-12); NEUTROPHILS % (AUTO) 69 % (42-75); PLATELET COUNT 406 10^3/uL (130-400)
[2019-11-06 16:54] LABS: BASOPHILS # (AUTO) 0.1 10^3/uL (0.0-0.1); LYMPHOCYTES # (AUTO) 2.5 X 10^3 (1.0-4.0); MONOCYTES # (AUTO) 1.5 X 10^3 (0.0-1.0); NEUTROPHILS # (AUTO) 9.5 X 10^3 (1.8-7.8)
== END ==
LOC: LAB FS 15:39
PROVIDERS: ATTEND Nurse Practitioner Adult Health
DX: C34.90 Malignant neoplasm of unspecified part of unspecified bronchus or lung (principal); C78.7 Secondary malignant neoplasm of liver and intrahepatic bile duct
CPT/HCPCS: 36415; 80048; 85025

== ENCOUNTER 2019-11-11 05:47 | Outpatient (CLI) | payer MEDICAID ==
[~2019-11-11] VITALS: Ht 162 cm; Wt 67.2 kg
[2019-11-11] MEDS ORDERED: CRV25T PO (14:46)
[2019-11-11] MEDS ORDERED: ALLO300T2 PO (14:46)
[2019-11-11] MEDS ORDERED: OMEP40CA27 PO (14:46)
[2019-11-11] MEDS ORDERED: RT-ALBUINH IH (14:46)
== END 2019-11-11 14:49 | disposition home or self-care (01) ==
LOC: PREOP 05:47
PROVIDERS: ATTEND Surgery
DX: Z01.818 Encounter for other preprocedural examination (principal)

== ENCOUNTER 2019-11-15 07:25 | Day surgery (SDC) | payer MEDICAID ==
[2019-11-15] VITALS (8 sets, daily range): BP systolic 90–116; BP diastolic 48–79
[~2019-11-15] VITALS: Ht 162 cm; Wt 67.2 kg
[~2019-11-15 07:25] MED LIST changes: +ALLO300T2 PO; +CRV25T PO; +OMEP40CA27 PO; +RT-ALBUINH IH
[2019-11-15] MEDS ORDERED: LACTATED RINGERS 1,000 ML IV PRN (07:44)
[2019-11-15] MEDS ORDERED: CLINDAMYCIN 600 MG/50 ML IVPB 50 ML IV ONE (07:45)
[2019-11-15] MEDS ORDERED: BUP/EPI 0.25% 1:200,000 (MARCAINE) 30 ML VIAL ONE (08:33)
[2019-11-15] MEDS ORDERED: 0.9% SODIUM CHLORIDE PF INJ 20 ML VIAL ONE (08:33)
[2019-11-15] MEDS ORDERED: HEParin (CENTRAL IV FLUSH) 500 UNIT/5 ML SYR ONE (08:34)
--- NOTE | 2019-11-15 08:57 | Progress Note-Pre Operative ---
Pre-Operative Progress Note H&P Reviewed The H&P was reviewed, patient examined and no changes noted. Time Seen by Provider: 08:53 Date H&P Reviewed: Nov 15, 2019 Time H&P Reviewed: 08:54 Pre-Operative Diagnosis: Venous Insufficiency, Metastatic Small Cell CA JESUS MANUEL WADE DO Nov 15, 2019 08:57
[2019-11-15] MEDS ORDERED: PROPOFOL INJECTION 50 ML IV ONE (09:14)
[2019-11-15] MEDS ORDERED: MIDAZOLAM 2 MG/2 ML (VERSED) VIAL ONE (09:14)
[2019-11-15] MEDS ORDERED: fentaNYL INJECTION 100 MCG/2 ML AMP ONE (09:16)
--- NOTE | 2019-11-15 10:00 | Progress Note-Post Operative ---
Post-Operative Progess Note Surgeon (s)/Multiple Drill Operator (s) Surgeon JESUS MANUEL WADE DO Multiple Drill Operator: SAE JuradoII Pre-Operative Diagnosis Venous Insufficiency, Metastatic Small Cell CA Post-Operative Diagnosis same Procedure & Operative Findings Date of Procedure 11/15/19 Procedure Performed/Findings PROCEDURE: [Left] subclavian port placement using ultrasound guidance. COMPLICATIONS: None. INDICATIONS: The patient is a 49 year old female [with metastatic small cell CA and venous insufficiency]. Patient understands the risks and benefits of port placement and wished to proceed with the procedure. Consent was signed on the chart. PROCEDURE: The patient was taken to the operating suite, was prepped and draped in the sterile fashion. A surgical pause was performed. Local anesthetic was infiltrated towards left clavicle and then on the anterior chest wall in spot to create pocket for the port. Using 18 gauge finder needle with negative inspiration the left subclavian vein was accessed. Dark nonpulsatile blood was withdrawn and the wire was inserted. Fluoroscopy assured proper placement. The needle was removed. A [#11] blade scalpel was used to make a stab incision along the guidewire and an incision over the [left] chest. Cautery was used to dissect down to the pectoral fascia. A pocket was created with blunt dissection. The dilator sheath was then advanced over the wire under fluoroscopy and the dilator and wire were removed. The Groshong catheter was inserted through the sheath and the sheath was then removed. The catheter was then tunneled to the left chest pocket. Fluoroscopy was used to cut to length and this was then attached to the port which was then placed within the pocket and sutured down to the chest wall with 3-0 Prolene suture. The port was then accessed without difficulty. It was then flushed with saline and then heparin. The subcutaneous tissues were then reapproximated using 3-0 Vicryl. The areas were then washed and dried. Skin Affix was placed over the stab incision and over the incision made for the pocket. The patient tolerated the procedure well without complication and was taken to recovery room in stable condition. Anesthesia Type IV sedation by HIGH LEAD YARDER Estimated Blood Loss Estimated blood loss (mL): scant Specimens/Packing Specimens Removed none JESUS MANUEL WADE DO Nov 15, 2019 10:00
[2019-11-15] MEDS ORDERED: HYDR-4226 PO (10:02)
--- NOTE | 2019-11-15 10:02 | Discharge Inst-Surgical ---
Discharge Inst-Surgical Depart Medication/Instructions New, Converted or Re-Newed RX: RX Given to Pt/Family Patient Instructions Follow up Appt: Make appointment for 1 week. [phone] Instructions: No strenuous activity. May shower in 24 hours, no tub bath or soaking. Use incentive spirometer at home as directed. No Smoking Skin/Wound Care: May remove bandages in am. You need to leave the Dermabond on incision it will fall off on it's own. Symptoms to Report: Appetite Changes, Extremity Discoloration, Numbness/Tingling, Swelling Increased, Bleeding Excessive, Eyesight Changes, Pain Increased, Urine Color Lazara nge, Constipation(Persistent), Fever over 101 degree F, Pain/Pressure in chest, Urinating Difficulty, Cough Up/Vomit Blood, Heart Beat Irreg/Pounding, Pain/Pressure in jaw, Cramps in feet or legs, Lightheadedness, Pain/Pressure in shoulder, Diarrhea(Persistent), Memory Changes Suddenly, Questions/Concerns, Weight gain consecutive days, Dizziness/Fainting, Nausea/Vomiting, Shortness of Breath, Weight gain over 2 pounds If questions or concerns contact your physician Or seek help at emergency department. Activity Activity as Tolerated: Yes Activity Instructions: Avoid Stress to Incision Driving Instructions: No Driving/Refer to Dr. Smith Discharge Diet: No Restrictions Diet After 24 Hours: Clear Liquid if Nauseous If Any Problems/Questions/Issu: Contact Your Physician, Go to Emergency Room Skin/Wound Care Infection Signs and Symptoms: Increased Redness, Foul Odor of Wound, Increased Drainage, Skin Itchy or Has a Rash, Increased Swelling, Temperature Above 101 F Bathing Instructions: Shower Stitches/Croby/Dermabond Dis: Dermabond Ice Pack: Ice On and Off Site JESUS MANUEL WADE DO Nov 15, 2019 10:02
--- NOTE | 2019-11-15 10:32 | Diagnostic Imaging Report ---
INDICATION: Port-A-Cath placement. Intraoperative fluoroscopy view obtained during Port-A-Cath placement in surgery. The port is visualized over the left chest wall with catheter entering the expected location of the left subclavian vein with catheter tip overlying the distal SVC. The study is otherwise limited. 2 seconds of fluoroscopy time was used in surgery. IMPRESSION: Intraoperative fluoroscopy view demonstrates Port-A-Cath placement as above. Dictated by: Dictated on workstation # [id number]
--- NOTE | 2019-11-18 14:16 | Anesthesia-General Post-Op ---
MAC Patient Condition Mental Status/LOC: Same as Preop Cardiovascular: Satisfactory Nausea/Vomiting: Absent Respiratory: Satisfactory Pain: Controlled Complications: Absent Post Op Complications Complications None Follow Up Care/Instructions Patient Instructions None needed. Anesthesiology Discharge Order Discharge Order Patient is doing well, no complaints, stable vital signs, no apparent adverse anesthesia problems. No complications reported per nursing. HEENA CASTILLO CRNA Nov 18, 2019 14:16
== END 2019-11-15 11:10 | disposition home or self-care (01) ==
LOC: SDC 07:25
PROVIDERS: ATTEND Surgery
DX: C34.92 Malignant neoplasm of unspecified part of left bronchus or lung (principal); C78.7 Secondary malignant neoplasm of liver and intrahepatic bile duct; I87.2 Venous insufficiency (chronic) (peripheral); I10 Essential (primary) hypertension; J44.9 Chronic obstructive pulmonary disease, unspecified; K21.9 Gastro-esophageal reflux disease without esophagitis; Z79.51 Long term (current) use of inhaled steroids; Z79.899 Other long term (current) drug therapy; Z88.0 Allergy status to penicillin; Z87.891 Personal history of nicotine dependence; Z92.21 Personal history of antineoplastic chemotherapy; Z92.3 Personal history of irradiation; Z90.710 Acquired absence of both cervix and uterus; Z80.0 Family history of malignant neoplasm of digestive organs; Z83.3 Family history of diabetes mellitus
CPT/HCPCS: 36561; 76000; 87081; C1788

== ENCOUNTER → 2019-12-18 | Outpatient (CLI) | payer MEDICAID ==
[~2019-12-18] MED LIST changes: +HYDR-4226 PO
[2019-12-18 17:12] LABS: BUN/CREATININE RATIO 14; CALCIUM 8.9 MG/DL (8.5-10.1); CARBON DIOXIDE 24 MMOL/L (21-32); CHLORIDE 105 MMOL/L (98-107); CREATININE SERUM 0.51 MG/DL (0.60-1.30); GFR ESTIMATED > 60; GLUCOSE 98 MG/DL (70-105); MAGNESIUM 1.7 MG/DL (1.6-2.4); POTASSIUM 4.1 MMOL/L (3.6-5.0); SODIUM 138 MMOL/L (135-145)
[2019-12-18 17:18] LABS: BASOPHILS % (AUTO) 0 % (0-10); EOSINOPHILS % (AUTO) 0 % (0-10); HEMATOCRIT 27 % (35-52); HEMOGLOBIN 8.9 G/DL (11.5-16.0); LYMPHOCYTES # (AUTO) 2.8 X 10^3 (1.0-4.0); LYMPHOCYTES % (AUTO) 35 % (12-44); MEAN CORPUSCULAR HEMOGLOBIN 34 PG (25-34); MEAN CORPUSCULAR HGB CONC 33 G/DL (32-36); MEAN CORPUSCULAR VOLUME 105 FL (80-99); MEAN PLATELET VOLUME 10.7 FL (7.4-10.4); MONOCYTES # (AUTO) 0.4 X 10^3 (0.0-1.0); MONOCYTES % (AUTO) 5 % (0-12); NEUTROPHILS # (AUTO) 4.7 X 10^3 (1.8-7.8); NEUTROPHILS % (AUTO) 60 % (42-75); PLATELET COUNT 86 10^3/uL (130-400); WHITE BLOOD COUNT 7.9 10^3/uL (4.3-11.0)
== END ==
LOC: LAB FS 15:59
PROVIDERS: ATTEND Nurse Practitioner Adult Health
DX: C34.2 Malignant neoplasm of middle lobe, bronchus or lung (principal)
CPT/HCPCS: 36415; 80048; 83735; 85025; 85027

== ENCOUNTER → 2019-12-30 | Outpatient (CLI) | payer MEDICAID ==
[~2019-12-30] MED LIST changes: +BARIUM SUSPENSION 2.1% (VANILLA SILQ) 450 ML PO ONE; +HOLD METFORMIN - RECEIVED CONTRAST 20 ML VIAL IV SCH; +IOHEXOL 350 MG/ML 100 ML (OMNIPAQUE 350) VIAL IV ONE; +NS 100 ML (IVPB) BAG IV ONE
[2019-12-30] MEDS: CATHETER FLUSH 10 ML SYR IV PRN ×2 (10:32→10:59)
--- NOTE | 2019-12-30 12:19 | Diagnostic Imaging Report ---
PROCEDURE: CT chest and abdomen with contrast. TECHNIQUE: Multiple contiguous axial images were obtained through the chest and abdomen after the administration of intravenous contrast. Auto Exposure Controls were utilized during the CT exam to meet ALARA standards for radiation dose reduction. INDICATION: Small cell lung cancer on the right, followup. COMPARISON: Correlation is made with the prior CT chest from 10/06/2019. FINDINGS: CT CHEST: A left chest wall port has its tip entering the right atrium. No axillary lymphadenopathy is identified. There has been a significant improved appearance to the chest when compared with the prior CT. The large masses located within the mediastinum as well as the right hilum show significant decrease in size and are now barely visible. For example, the large right paratracheal soft tissue mass is no longer present. The soft tissue mass in the high midline and left para-midline mediastinum is no longer present. There appears to be very minimal residual soft tissue in the right hilum adjacent to the right mainstem bronchus measuring approximately 1.9 x 1.8 cm. The large mass-like consolidation in the right midlung is no longer present. There is some minimal residual atelectasis or scarring in the right upper lobe as well as the lingula but no discrete parenchymal mass is seen. In addition, the previously noted nodular pleural thickening and pleural fluid on the right side has resolved. There is no pericardial or pleural fluid noted on today's exam. The thoracic spine does show some sclerosis as well as some lucency suggestive of osseous metastatic disease. IMPRESSION: Marked improved appearance to the chest since the prior CT chest from 10/06/2019. Only minimal residual tumor in the right hilum is noted. A majority of the parenchymal disease in the right lung noted previously has resolved. The pleural fluid on the right has resolved. 2. There continues to be sclerosis and some lucency within the osseous structures, suggestive of osseous metastatic disease. CT ABDOMEN: There continues to be some parenchymal heterogeneity to the liver with small regions of low density, concerning for hepatic metastatic disease; however, this does appear to be markedly improved. The gallbladder is surgically absent. There is no biliary ductal dilatation. The pancreas and spleen are unremarkable. No discrete adrenal mass is identified on today's study. The kidneys are unremarkable. The aorta is nonaneurysmal. No central retroperitoneal or mesenteric lymphadenopathy is seen. The small and large bowel loops are of normal caliber. The osseous structures again demonstrate sclerosis of the pelvis and lumbar spine, concerning for osseous metastatic disease. IMPRESSION: Significant improved appearance to the abdomen, in particular the liver and adrenal glands, compared with the prior CT chest study from 10/06/2019. There does appear to be diffuse sclerosis of the osseous structures, concerning for osseous metastatic disease. Dictated by: Dictated on workstation # [id number]
--- NOTE | 2019-12-30 14:06 | Diagnostic Imaging Report ---
INDICATION: Lung cancer Whole body bone scan 26.8 mCi of technetium 99m MDP was given intravenously. Whole body bone scan was obtained after appropriate delay. There is no abnormal activity seen in the skeletal system. Both kidneys appear to be taking up isotope. IMPRESSION: Negative whole body bone scan. Dictated by: Dictated on workstation # [id number]
== END ==
LOC: CARD 10:22
PROVIDERS: ATTEND Nurse Practitioner Adult Health
DX: C34.2 Malignant neoplasm of middle lobe, bronchus or lung (principal); C78.7 Secondary malignant neoplasm of liver and intrahepatic bile duct; C79.70 Secondary malignant neoplasm of unspecified adrenal gland; C79.51 Secondary malignant neoplasm of bone; M89.9 Disorder of bone, unspecified; Z95.828 Presence of other vascular implants and grafts; Z90.49 Acquired absence of other specified parts of digestive tract
CPT/HCPCS: 71260; 74160; 78306; A9503

== ENCOUNTER → 2020-01-06 | Outpatient (CLI) | payer MEDICAID ==
[~2020-01-06] MED LIST changes: -BARIUM SUSPENSION 2.1% (VANILLA SILQ) 450 ML PO ONE; +GADOBUTROL 10 MMOL/10 ML (GADAVIST) VIAL IV ONE; -HOLD METFORMIN - RECEIVED CONTRAST 20 ML VIAL IV SCH; -IOHEXOL 350 MG/ML 100 ML (OMNIPAQUE 350) VIAL IV ONE; -NS 100 ML (IVPB) BAG IV ONE
--- NOTE | 2020-01-06 11:59 | Diagnostic Imaging Report ---
PROCEDURE: MR imaging of the brain with and without contrast. TECHNIQUE: Multiplanar, multisequence MR imaging of the brain was performed with and without contrast. INDICATION: Lung cancer. COMPARISON: None. FINDINGS: Normal nonspecific T2 hyperintensities in the supratentorial white matter are age appropriate. No abnormal intracranial enhancement. No restricted water diffusion. No hemosiderin deposition or evidence of intracranial hemorrhage. Normal morphology of the major midline structures, sella, posterior fossa and cerebellar pontine angle. No hydrocephalus or extra-axial fluid collections. Normal intracranial flow voids. The orbits are negative. The paranasal sinuses and mastoids are unremarkable. Normal bone marrow signal. IMPRESSION: Age-appropriate MRI of the brain. No acute findings. No evidence of intracranial metastases. Dictated by: Dictated on workstation # [id number]
== END ==
LOC: RAD 11:00
PROVIDERS: ATTEND Internal Medicine Hematology & Oncology
DX: C34.2 Malignant neoplasm of middle lobe, bronchus or lung (principal); C78.7 Secondary malignant neoplasm of liver and intrahepatic bile duct; C79.51 Secondary malignant neoplasm of bone; C79.70 Secondary malignant neoplasm of unspecified adrenal gland
CPT/HCPCS: 70553

== ENCOUNTER 2020-01-22 12:58 | Outpatient (RCR) | payer MEDICAID ==
[2019-10-30 09:35] LABS: BASOPHILS % (AUTO) 1 % (0-10); EOSINOPHILS % (AUTO) 0 % (0-10); HEMATOCRIT 31 % (35-52); HEMOGLOBIN 10.2 G/DL (11.5-16.0); LYMPHOCYTES # (AUTO) 1.9 X 10^3 (1.0-4.0); LYMPHOCYTES % (AUTO) 46 % (12-44); MEAN CORPUSCULAR HEMOGLOBIN 32 PG (25-34); MEAN CORPUSCULAR HGB CONC 33 G/DL (32-36); MEAN CORPUSCULAR VOLUME 97 FL (80-99); MEAN PLATELET VOLUME 9.7 FL (7.4-10.4); MONOCYTES # (AUTO) 0.7 X 10^3 (0.0-1.0); MONOCYTES % (AUTO) 18 % (0-12); NEUTROPHILS # (AUTO) 1.5 X 10^3 (1.8-7.8); NEUTROPHILS % (AUTO) 35 % (42-75); PLATELET COUNT 441 10^3/uL (130-400); WHITE BLOOD COUNT 4.1 10^3/uL (4.3-11.0)
[2019-10-30 10:05] LABS: ALANINE AMINOTRANSFERASE 74 U/L (0-55); ALBUMIN 3.6 GM/DL (3.2-4.5); ALKALINE PHOSPHATASE 1272 U/L (40-136); BILIRUBIN,TOTAL 1.4 MG/DL (0.1-1.0); BUN/CREATININE RATIO 8; CALCIUM 8.7 MG/DL (8.5-10.1); CARBON DIOXIDE 21 MMOL/L (21-32); CHLORIDE 104 MMOL/L (98-107); CREATININE SERUM 0.59 MG/DL (0.60-1.30); GFR ESTIMATED > 60; GLUCOSE 137 MG/DL (70-105); MAGNESIUM 1.8 MG/DL (1.6-2.4); POTASSIUM 3.2 MMOL/L (3.6-5.0); SODIUM 141 MMOL/L (135-145); TOTAL PROTEIN 6.7 GM/DL (6.4-8.2)
[2019-11-20 12:54] LABS: BASOPHILS # (AUTO) 0.1 10^3/uL (0.0-0.1); BASOPHILS % (AUTO) 1 % (0-10); EOSINOPHILS # (AUTO) 0.1 10^3/uL (0.0-0.3); EOSINOPHILS % (AUTO) 1 % (0-10); HEMATOCRIT 31 % (35-52); LYMPHOCYTES # (AUTO) 2.5 10^3/uL (1.0-4.0); LYMPHOCYTES % (AUTO) 24 % (12-44); MEAN CORPUSCULAR HEMOGLOBIN 32 pg (25-34); MEAN CORPUSCULAR HGB CONC 33 g/dL (32-36); MEAN CORPUSCULAR VOLUME 99 fL (80-99); MEAN PLATELET VOLUME 9.7 fL (9.0-12.2); MONOCYTES % (AUTO) 9 % (0-12); NEUTROPHILS # (AUTO) 6.2 10^3/uL (1.8-7.8); NEUTROPHILS % (AUTO) 60 % (42-75); PLATELET COUNT 250 10^3/uL (130-400); WHITE BLOOD COUNT 10.3 10^3/uL (4.3-11.0)
[2019-11-20 13:15] LABS: ALANINE AMINOTRANSFERASE 28 U/L (0-55); ALBUMIN 3.7 GM/DL (3.2-4.5); ALKALINE PHOSPHATASE 431 U/L (40-136); BILIRUBIN,TOTAL 0.8 MG/DL (0.1-1.0); BUN/CREATININE RATIO 9; CALCIUM 8.9 MG/DL (8.5-10.1); CARBON DIOXIDE 23 MMOL/L (21-32); CHLORIDE 105 MMOL/L (98-107); CREATININE SERUM 0.56 MG/DL (0.60-1.30); GFR ESTIMATED > 60; GLUCOSE 99 MG/DL (70-105); MAGNESIUM 1.7 MG/DL (1.6-2.4); POTASSIUM 3.5 MMOL/L (3.6-5.0); SODIUM 140 MMOL/L (135-145); TOTAL PROTEIN 6.2 GM/DL (6.4-8.2)
[2019-11-27 16:28] LABS: BASOPHILS # (AUTO) 0.1 10^3/uL (0.0-0.1); BASOPHILS % (AUTO) 1 % (0-10); EOSINOPHILS # (AUTO) 0.1 10^3/uL (0.0-0.3); EOSINOPHILS % (AUTO) 1 % (0-10); HEMATOCRIT 27 % (35-52); HEMOGLOBIN 9.1 G/DL (11.5-16.0); LYMPHOCYTES # (AUTO) 2.1 X 10^3 (1.0-4.0); LYMPHOCYTES % (AUTO) 11 % (12-44); MEAN CORPUSCULAR HEMOGLOBIN 33 PG (25-34); MEAN CORPUSCULAR HGB CONC 33 G/DL (32-36); MEAN CORPUSCULAR VOLUME 99 FL (80-99); MEAN PLATELET VOLUME 10.3 FL (7.4-10.4); MONOCYTES # (AUTO) 0.7 X 10^3 (0.0-1.0); MONOCYTES % (AUTO) 4 % (0-12); NEUTROPHILS # (AUTO) 15.1 X 10^3 (1.8-7.8); NEUTROPHILS % (AUTO) 83 % (42-75); PLATELET COUNT 123 10^3/uL (130-400); WHITE BLOOD COUNT 18.3 10^3/uL (4.3-11.0)
[2019-11-27 16:48] LABS: ALANINE AMINOTRANSFERASE 39 U/L (0-55); ALBUMIN 4.1 GM/DL (3.2-4.5); ALKALINE PHOSPHATASE 427 U/L (40-136); BILIRUBIN,TOTAL 0.7 MG/DL (0.1-1.0); BUN/CREATININE RATIO 17; CALCIUM 9.1 MG/DL (8.5-10.1); CARBON DIOXIDE 24 MMOL/L (21-32); CHLORIDE 101 MMOL/L (98-107); CREATININE SERUM 0.47 MG/DL (0.60-1.30); GFR ESTIMATED > 60; GLUCOSE 100 MG/DL (70-105); MAGNESIUM 1.6 MG/DL (1.6-2.4); POTASSIUM 3.7 MMOL/L (3.6-5.0); SODIUM 139 MMOL/L (135-145); TOTAL PROTEIN 6.6 GM/DL (6.4-8.2)
[2019-12-04 16:11] LABS: BUN/CREATININE RATIO 9; CALCIUM 9.2 MG/DL (8.5-10.1); CARBON DIOXIDE 25 MMOL/L (21-32); CHLORIDE 98 MMOL/L (98-107); CREATININE SERUM 0.53 MG/DL (0.60-1.30); GFR ESTIMATED > 60; GLUCOSE 133 MG/DL (70-105); POTASSIUM 2.7 MMOL/L (3.6-5.0); SODIUM 138 MMOL/L (135-145)
[2019-12-04 16:13] LABS: BASOPHILS % (AUTO) 0 % (0-10); EOSINOPHILS % (AUTO) 0 % (0-10); HEMATOCRIT 28 % (35-52); HEMOGLOBIN 9.5 G/DL (11.5-16.0); LYMPHOCYTES # (AUTO) 1.3 X 10^3 (1.0-4.0); LYMPHOCYTES % (AUTO) 14 % (12-44); MEAN CORPUSCULAR HEMOGLOBIN 33 PG (25-34); MEAN CORPUSCULAR HGB CONC 34 G/DL (32-36); MEAN CORPUSCULAR VOLUME 98 FL (80-99); MEAN PLATELET VOLUME 12.2 FL (7.4-10.4); MONOCYTES # (AUTO) 0.7 X 10^3 (0.0-1.0); MONOCYTES % (AUTO) 8 % (0-12); NEUTROPHILS # (AUTO) 6.7 X 10^3 (1.8-7.8); NEUTROPHILS % (AUTO) 75 % (42-75); PLATELET COUNT 89 10^3/uL (130-400); WHITE BLOOD COUNT 8.9 10^3/uL (4.3-11.0)
[2019-12-05 07:49] LABS: MAGNESIUM 1.5 MG/DL (1.6-2.4)
[2019-12-11 10:47] LABS: BASOPHILS % (AUTO) 0 % (0-10); EOSINOPHILS % (AUTO) 0 % (0-10); HEMATOCRIT 30 % (35-52); HEMOGLOBIN 9.8 g/dL (11.5-16.0); LYMPHOCYTES % (AUTO) 26 % (12-44); MEAN CORPUSCULAR HEMOGLOBIN 33 pg (25-34); MEAN CORPUSCULAR HGB CONC 33 g/dL (32-36); MEAN CORPUSCULAR VOLUME 100 fL (80-99); MEAN PLATELET VOLUME 11.1 fL (9.0-12.2); MONOCYTES # (AUTO) 0.6 10^3/uL (0.0-1.0); MONOCYTES % (AUTO) 7 % (0-12); NEUTROPHILS % (AUTO) 65 % (42-75); PLATELET COUNT 184 10^3/uL (130-400); WHITE BLOOD COUNT 7.7 10^3/uL (4.3-11.0)
[2019-12-11 11:02] LABS: ALANINE AMINOTRANSFERASE 19 U/L (0-55); ALBUMIN 3.7 GM/DL (3.2-4.5); ALKALINE PHOSPHATASE 206 U/L (40-136); BILIRUBIN,TOTAL 0.6 MG/DL (0.1-1.0); BUN/CREATININE RATIO 10; CALCIUM 8.8 MG/DL (8.5-10.1); CARBON DIOXIDE 28 MMOL/L (21-32); CHLORIDE 100 MMOL/L (98-107); CREATININE SERUM 0.59 MG/DL (0.60-1.30); GFR ESTIMATED > 60; GLUCOSE 102 MG/DL (70-105); MAGNESIUM 1.3 MG/DL (1.6-2.4); POTASSIUM 3.1 MMOL/L (3.6-5.0); SODIUM 137 MMOL/L (135-145); TOTAL PROTEIN 6.3 GM/DL (6.4-8.2)
[2020-01-01 08:55] LABS: BASOPHILS % (AUTO) 1 % (0-10); EOSINOPHILS % (AUTO) 0 % (0-10); HEMATOCRIT 27 % (35-52); HEMOGLOBIN 8.4 g/dL (11.5-16.0); LYMPHOCYTES # (AUTO) 1.5 10^3/uL (1.0-4.0); LYMPHOCYTES % (AUTO) 31 % (12-44); MEAN CORPUSCULAR HEMOGLOBIN 34 pg (25-34); MEAN CORPUSCULAR HGB CONC 31 g/dL (32-36); MEAN CORPUSCULAR VOLUME 111 fL (80-99); MEAN PLATELET VOLUME 10.3 fL (9.0-12.2); MONOCYTES # (AUTO) 0.7 10^3/uL (0.0-1.0); MONOCYTES % (AUTO) 14 % (0-12); NEUTROPHILS # (AUTO) 2.5 10^3/uL (1.8-7.8); NEUTROPHILS % (AUTO) 52 % (42-75); PLATELET COUNT 167 10^3/uL (130-400); WHITE BLOOD COUNT 4.7 10^3/uL (4.3-11.0)
[2020-01-01 09:17] LABS: ALANINE AMINOTRANSFERASE 25 U/L (0-55); ALBUMIN 3.7 GM/DL (3.2-4.5); ALKALINE PHOSPHATASE 207 U/L (40-136); BILIRUBIN,TOTAL 0.4 MG/DL (0.1-1.0); BUN/CREATININE RATIO 7; CALCIUM 8.5 MG/DL (8.5-10.1); CARBON DIOXIDE 21 MMOL/L (21-32); CHLORIDE 110 MMOL/L (98-107); CREATININE SERUM 0.61 MG/DL (0.60-1.30); GFR ESTIMATED > 60; GLUCOSE 103 MG/DL (70-105); MAGNESIUM 1.4 MG/DL (1.6-2.4); POTASSIUM 3.8 MMOL/L (3.6-5.0); SODIUM 143 MMOL/L (135-145); TOTAL PROTEIN 5.9 GM/DL (6.4-8.2)
[~2020-01-22] VITALS: Ht 162.6 cm; Wt 74.8 kg
[~2020-01-22 12:58] MED LIST changes: +ATEZOLIZUMAB 1,200 MG in NS (IVPB) CANCER CENTER 250 ML IV SCH; +CARBOplatin 420 MG in D5W 50 ML IV(CANCER CTR) 50 ML IV SCH; +ETOPOSIDE IV SCH; +FOSAPREPITANT (CANCER CENTER) 150 MG in NS (IVPB) CANCER CENTER ONLY 150 ML IV SCH; -GADOBUTROL 10 MMOL/10 ML (GADAVIST) VIAL IV ONE; +MAGNESIUM SULFATE (CANCER CTR) 2 GM in NS (IVPB) CANCER CENTER 100 ML IV ONE; +NORMAL SALINE IV SCH; +NS IV 1000 ML (CANCER CTR) IV SCH; +PEGFILGRASTIM 6 MG/0.6 ML ONPRO KIT SQ SCH
[2020-01-22 13:22] LABS: BASOPHILS % (AUTO) 0 % (0-10); EOSINOPHILS # (AUTO) 0.1 10^3/uL (0.0-0.3); EOSINOPHILS % (AUTO) 2 % (0-10); HEMATOCRIT 33 % (35-52); HEMOGLOBIN 10.4 g/dL (11.5-16.0); LYMPHOCYTES # (AUTO) 1.8 10^3/uL (1.0-4.0); LYMPHOCYTES % (AUTO) 35 % (12-44); MEAN CORPUSCULAR HEMOGLOBIN 34 pg (25-34); MEAN CORPUSCULAR HGB CONC 32 g/dL (32-36); MEAN CORPUSCULAR VOLUME 106 fL (80-99); MEAN PLATELET VOLUME 10.2 fL (9.0-12.2); MONOCYTES # (AUTO) 0.6 10^3/uL (0.0-1.0); MONOCYTES % (AUTO) 12 % (0-12); NEUTROPHILS # (AUTO) 2.7 10^3/uL (1.8-7.8); NEUTROPHILS % (AUTO) 51 % (42-75); PLATELET COUNT 212 10^3/uL (130-400); WHITE BLOOD COUNT 5.2 10^3/uL (4.3-11.0)
[2020-01-22 13:43] LABS: ALANINE AMINOTRANSFERASE 28 U/L (0-55); ALKALINE PHOSPHATASE 188 U/L (40-136); BILIRUBIN,TOTAL 0.5 MG/DL (0.1-1.0); BUN/CREATININE RATIO 15; CALCIUM 8.9 MG/DL (8.5-10.1); CARBON DIOXIDE 23 MMOL/L (21-32); CHLORIDE 107 MMOL/L (98-107); CREATININE SERUM 0.68 MG/DL (0.60-1.30); GFR ESTIMATED > 60; GLUCOSE 92 MG/DL (70-105); MAGNESIUM 1.7 MG/DL (1.6-2.4); POTASSIUM 4.1 MMOL/L (3.6-5.0); SODIUM 140 MMOL/L (135-145); TOTAL PROTEIN 6.6 GM/DL (6.4-8.2)
== END 2020-01-23 | disposition home or self-care (01) ==
LOC: ONC 12:58
PROVIDERS: ATTEND Internal Medicine Hematology & Oncology
DX: C34.2 Malignant neoplasm of middle lobe, bronchus or lung (principal); C78.7 Secondary malignant neoplasm of liver and intrahepatic bile duct; C79.51 Secondary malignant neoplasm of bone; C79.70 Secondary malignant neoplasm of unspecified adrenal gland; K83.1 Obstruction of bile duct; Z90.49 Acquired absence of other specified parts of digestive tract; Z92.21 Personal history of antineoplastic chemotherapy; Z90.710 Acquired absence of both cervix and uterus; Z90.79 Acquired absence of other genital organ(s)
CPT/HCPCS: 36415; 36591; 80048; 80053; 83615; 83735; 84443; 85025; 96367; 96368; 96375; 96377; 96413; 96417; 99214; J2505

== ENCOUNTER 2020-02-13 12:52 | Outpatient (RCR) | payer MEDICAID ==
[~2020-02-13 12:52] MED LIST changes: -CARBOplatin 420 MG in D5W 50 ML IV(CANCER CTR) 50 ML IV SCH; -ETOPOSIDE IV SCH; -FOSAPREPITANT (CANCER CENTER) 150 MG in NS (IVPB) CANCER CENTER ONLY 150 ML IV SCH; -MAGNESIUM SULFATE (CANCER CTR) 2 GM in NS (IVPB) CANCER CENTER 100 ML IV ONE; -NORMAL SALINE IV SCH; -PEGFILGRASTIM 6 MG/0.6 ML ONPRO KIT SQ SCH
[2020-02-13 13:11] LABS: BASOPHILS % (AUTO) 0 % (0-10); EOSINOPHILS % (AUTO) 1 % (0-10); HEMATOCRIT 34 % (35-52); HEMOGLOBIN 10.7 g/dL (11.5-16.0); LYMPHOCYTES # (AUTO) 1.8 10^3/uL (1.0-4.0); LYMPHOCYTES % (AUTO) 37 % (12-44); MEAN CORPUSCULAR HEMOGLOBIN 32 pg (25-34); MEAN CORPUSCULAR HGB CONC 31 g/dL (32-36); MEAN CORPUSCULAR VOLUME 102 fL (80-99); MEAN PLATELET VOLUME 10.1 fL (9.0-12.2); MONOCYTES # (AUTO) 0.5 10^3/uL (0.0-1.0); MONOCYTES % (AUTO) 10 % (0-12); NEUTROPHILS # (AUTO) 2.5 10^3/uL (1.8-7.8); NEUTROPHILS % (AUTO) 52 % (42-75); PLATELET COUNT 204 10^3/uL (130-400); WHITE BLOOD COUNT 4.8 10^3/uL (4.3-11.0)
[2020-02-13 13:33] LABS: ALANINE AMINOTRANSFERASE 23 U/L (0-55); ALBUMIN 4.3 GM/DL (3.2-4.5); ALKALINE PHOSPHATASE 154 U/L (40-136); BILIRUBIN,TOTAL 0.5 MG/DL (0.1-1.0); BUN/CREATININE RATIO 8; CARBON DIOXIDE 27 MMOL/L (21-32); CHLORIDE 110 MMOL/L (98-107); CREATININE SERUM 0.75 MG/DL (0.60-1.30); GFR ESTIMATED > 60; GLUCOSE 96 MG/DL (70-105); SODIUM 142 MMOL/L (135-145); TOTAL PROTEIN 6.8 GM/DL (6.4-8.2)
== END 2020-03-02 15:59 | disposition home or self-care (01) ==
LOC: ONC 12:52
PROVIDERS: ATTEND Internal Medicine Hematology & Oncology
DX: C34.90 Malignant neoplasm of unspecified part of unspecified bronchus or lung (principal); C78.7 Secondary malignant neoplasm of liver and intrahepatic bile duct; C79.51 Secondary malignant neoplasm of bone; C79.70 Secondary malignant neoplasm of unspecified adrenal gland; Z92.21 Personal history of antineoplastic chemotherapy
CPT/HCPCS: 80053; 83615; 85025; 96413; G0463; 36591

== ENCOUNTER → 2020-03-24 | Outpatient (CLI) | payer MEDICAID ==
[~2020-03-24] MED LIST changes: -ATEZOLIZUMAB 1,200 MG in NS (IVPB) CANCER CENTER 250 ML IV SCH; +GADOBUTROL 10 MMOL/10 ML (GADAVIST) VIAL IV ONE; +HOLD METFORMIN - RECEIVED CONTRAST 20 ML VIAL IV SCH; +IOHEXOL 350 MG/ML 100 ML (OMNIPAQUE 350) VIAL IV ONE; +NS 100 ML (IVPB) BAG IV ONE; -NS IV 1000 ML (CANCER CTR) IV SCH
[2020-03-24] MEDS: CATHETER FLUSH 10 ML SYR IV PRN ×2 (09:56→10:05)
--- NOTE | 2020-03-24 10:37 | Diagnostic Imaging Report ---
EXAMINATION: CT Chest and Abdomen with intravenous contrast. TECHNIQUE: Multiple contiguous axial images were obtained through the chest and abdomen after the uneventful administration of intravenous contrast. All CT scans use one or more of the following dose optimizing techniques: automated exposure control, MA and/or KvP adjustment based on a patient size and exam type, or iterative reconstruction. HISTORY: Malignant neoplasm of bronchus or lung. COMPARISON: CT chest and abdomen 12/30/2019. FINDINGS: Thyroid: The thyroid is normal. Mediastinum: Heart size is normal without significant pericardial effusion. The aorta is normal in caliber. Left-sided portacatheter is unchanged. Decreased size of a right hilar lymph node measuring 0.9 x 1.0 cm (previously 1.9 x 1.8 cm) (series 2, image 22). No new suspicious lymphadenopathy. Lungs and airways: Decreased atelectasis or scarring within the right middle and lower lobes along the fissures compared to 12/30/2019. No new suspicious pulmonary lesion. No pleural effusion or pneumothorax. The airways are normal. Solid organs: The previous heterogeneous attenuation of the liver has continued to improve with only a 0.7 cm hypodensity within hepatic segment 4A remaining (series 2, image 44). No new suspicious hepatic lesion. There is no biliary ductal dilation. The gallbladder is surgically absent. Pancreas is normal. Spleen is normal. Adrenal glands are normal. The kidneys are normal without hydronephrosis. Bowel: No bowel obstruction. Peritoneum: There is no intraperitoneal free fluid or free air. No suspicious lymphadenopathy. Vasculature: Normal without aneurysm. Musculoskeletal: Mildly sclerotic appearance of the osseous structures is present but less apparent on today's exam. Stable scattered lucencies within the thoracic vertebral bodies. IMPRESSION: 1. Decreased heterogeneity of the liver compared to 12/30/2019. Stable 0.7 cm focal hypodense lesion within hepatic segment 4A. 2. Stable mixed lytic and sclerotic appearance of the osseous structures compatible with osseous metastatic disease. 3. No new findings of metastatic disease within the chest, abdomen, or pelvis. 4. Mild residual atelectasis or scarring within the right lung. Dictated by: Dictated on workstation # [id number]
--- NOTE | 2020-03-24 11:07 | Diagnostic Imaging Report ---
PROCEDURE: MR imaging of the brain with and without contrast. TECHNIQUE: Multiplanar, multisequence MR imaging of the brain was performed with and without contrast. INDICATION: Lung cancer. Liver cancer. COMPARISON: MRI brain without and with IV contrast 01/06/2020. FINDINGS: Minimal nonspecific T2 hyperintensities in the supratentorial white matter similar to the prior exam. No new abnormal intracranial signal or enhancement. No restricted water diffusion. No hemosiderin deposition or evidence of intracranial hemorrhage. Normal morphology including the major midline structures, sella, posterior fossa and cerebellar pontine angle. Normal intracranial flow voids. No hydrocephalus or extra-axial fluid collections. The orbits are unremarkable in this nondedicated exam. Paranasal sinuses and mastoids are clear. Normal bone marrow signal. IMPRESSION: No significant change. No findings suspicious for intracranial metastasis. No acute intracranial findings. Dictated by: Dictated on workstation # [id number]
--- NOTE | 2020-03-24 15:02 | Diagnostic Imaging Report ---
INDICATION: Lung neoplasm. COMPARISON: Comparison is made with prior bone scan from 12/30/2019. TECHNIQUE: Patient was administered 24.9 mCi technetium 99m MDP intravenously and whole body imaging was performed after a three-hour delay. FINDINGS: There is normal uptake of activity by the axial and appendicular skeleton. There is uptake by both kidneys with excretion into the urinary bladder. No suspicious foci are identified to suggest osseous metastatic disease. IMPRESSION: No scintigraphic evidence of osseous metastatic disease. Dictated by: Dictated on workstation # [id number]
== END ==
LOC: CARD 09:47
PROVIDERS: ATTEND Nurse Practitioner Adult Health
DX: Z51.11 Encounter for antineoplastic chemotherapy (principal); C34.90 Malignant neoplasm of unspecified part of unspecified bronchus or lung; C78.7 Secondary malignant neoplasm of liver and intrahepatic bile duct; C79.51 Secondary malignant neoplasm of bone
CPT/HCPCS: 70553; 71260; 74160; 78306; A9503

== ENCOUNTER 2020-05-27 10:57 | Outpatient (RCR) | payer MEDICAID ==
[2020-03-05 13:53] LABS: BASOPHILS % (AUTO) 0 % (0-10); EOSINOPHILS % (AUTO) 0 % (0-10); HEMATOCRIT 35 % (35-52); HEMOGLOBIN 11.2 g/dL (11.5-16.0); LYMPHOCYTES # (AUTO) 1.7 10^3/uL (1.0-4.0); LYMPHOCYTES % (AUTO) 36 % (12-44); MEAN CORPUSCULAR HEMOGLOBIN 32 pg (25-34); MEAN CORPUSCULAR HGB CONC 32 g/dL (32-36); MEAN CORPUSCULAR VOLUME 99 fL (80-99); MONOCYTES # (AUTO) 0.4 10^3/uL (0.0-1.0); MONOCYTES % (AUTO) 9 % (0-12); NEUTROPHILS # (AUTO) 2.5 10^3/uL (1.8-7.8); NEUTROPHILS % (AUTO) 54 % (42-75); PLATELET COUNT 203 10^3/uL (130-400); WHITE BLOOD COUNT 4.6 10^3/uL (4.3-11.0)
[2020-03-05 14:15] LABS: ALANINE AMINOTRANSFERASE 27 U/L (0-55); ALBUMIN 4.1 GM/DL (3.2-4.5); ALKALINE PHOSPHATASE 152 U/L (40-136); BILIRUBIN,TOTAL 0.3 MG/DL (0.1-1.0); BUN/CREATININE RATIO 11; CALCIUM 8.7 MG/DL (8.5-10.1); CARBON DIOXIDE 24 MMOL/L (21-32); CHLORIDE 111 MMOL/L (98-107); CREATININE SERUM 0.75 MG/DL (0.60-1.30); GFR ESTIMATED > 60; GLUCOSE 98 MG/DL (70-105); POTASSIUM 3.9 MMOL/L (3.6-5.0); SODIUM 142 MMOL/L (135-145); TOTAL PROTEIN 6.8 GM/DL (6.4-8.2)
[2020-03-26 09:07] LABS: BASOPHILS % (AUTO) 0 % (0-10); EOSINOPHILS % (AUTO) 1 % (0-10); HEMATOCRIT 34 % (35-52); HEMOGLOBIN 10.9 g/dL (11.5-16.0); LYMPHOCYTES # (AUTO) 1.4 10^3/uL (1.0-4.0); LYMPHOCYTES % (AUTO) 33 % (12-44); MEAN CORPUSCULAR HEMOGLOBIN 31 pg (25-34); MEAN CORPUSCULAR HGB CONC 32 g/dL (32-36); MEAN CORPUSCULAR VOLUME 97 fL (80-99); MONOCYTES # (AUTO) 0.4 10^3/uL (0.0-1.0); MONOCYTES % (AUTO) 9 % (0-12); NEUTROPHILS # (AUTO) 2.4 10^3/uL (1.8-7.8); NEUTROPHILS % (AUTO) 57 % (42-75); PLATELET COUNT 188 10^3/uL (130-400); WHITE BLOOD COUNT 4.2 10^3/uL (4.3-11.0)
[2020-03-26 09:28] LABS: ALANINE AMINOTRANSFERASE 18 U/L (0-55); ALBUMIN 3.9 GM/DL (3.2-4.5); ALKALINE PHOSPHATASE 123 U/L (40-136); BILIRUBIN,TOTAL 0.4 MG/DL (0.1-1.0); BUN/CREATININE RATIO 10; CALCIUM 8.9 MG/DL (8.5-10.1); CARBON DIOXIDE 23 MMOL/L (21-32); CHLORIDE 111 MMOL/L (98-107); CREATININE SERUM 0.72 MG/DL (0.60-1.30); GFR ESTIMATED > 60; GLUCOSE 111 MG/DL (70-105); POTASSIUM 3.9 MMOL/L (3.6-5.0); SODIUM 142 MMOL/L (135-145); TOTAL PROTEIN 6.2 GM/DL (6.4-8.2)
[2020-04-16 10:54] LABS: BASOPHILS % (AUTO) 0 % (0-10); EOSINOPHILS # (AUTO) 0.1 10^3/uL (0.0-0.3); EOSINOPHILS % (AUTO) 1 % (0-10); HEMATOCRIT 37 % (35-52); HEMOGLOBIN 11.9 g/dL (11.5-16.0); LYMPHOCYTES % (AUTO) 37 % (12-44); MEAN CORPUSCULAR HEMOGLOBIN 31 pg (25-34); MEAN CORPUSCULAR HGB CONC 32 g/dL (32-36); MEAN CORPUSCULAR VOLUME 95 fL (80-99); MEAN PLATELET VOLUME 9.5 fL (9.0-12.2); MONOCYTES # (AUTO) 0.3 10^3/uL (0.0-1.0); MONOCYTES % (AUTO) 5 % (0-12); NEUTROPHILS % (AUTO) 56 % (42-75); PLATELET COUNT 238 10^3/uL (130-400); WHITE BLOOD COUNT 5.4 10^3/uL (4.3-11.0)
[2020-04-16 11:13] LABS: ALANINE AMINOTRANSFERASE 15 U/L (0-55); ALBUMIN 3.9 GM/DL (3.2-4.5); ALKALINE PHOSPHATASE 133 U/L (40-136); BILIRUBIN,TOTAL 0.3 MG/DL (0.1-1.0); BUN/CREATININE RATIO 12; CALCIUM 8.9 MG/DL (8.5-10.1); CARBON DIOXIDE 23 MMOL/L (21-32); CHLORIDE 110 MMOL/L (98-107); CREATININE SERUM 0.75 MG/DL (0.60-1.30); GFR ESTIMATED > 60; GLUCOSE 139 MG/DL (70-105); POTASSIUM 3.7 MMOL/L (3.6-5.0); SODIUM 140 MMOL/L (135-145); TOTAL PROTEIN 6.8 GM/DL (6.4-8.2)
[2020-05-06 14:12] LABS: BASOPHILS % (AUTO) 0 % (0-10); EOSINOPHILS # (AUTO) 0.1 10^3/uL (0.0-0.3); EOSINOPHILS % (AUTO) 1 % (0-10); HEMATOCRIT 37 % (35-52); HEMOGLOBIN 11.9 g/dL (11.5-16.0); LYMPHOCYTES # (AUTO) 2.5 10^3/uL (1.0-4.0); LYMPHOCYTES % (AUTO) 32 % (12-44); MEAN CORPUSCULAR HEMOGLOBIN 30 pg (25-34); MEAN CORPUSCULAR HGB CONC 32 g/dL (32-36); MEAN CORPUSCULAR VOLUME 94 fL (80-99); MEAN PLATELET VOLUME 9.9 fL (9.0-12.2); MONOCYTES # (AUTO) 0.5 10^3/uL (0.0-1.0); MONOCYTES % (AUTO) 6 % (0-12); NEUTROPHILS # (AUTO) 4.9 10^3/uL (1.8-7.8); NEUTROPHILS % (AUTO) 61 % (42-75); PLATELET COUNT 209 10^3/uL (130-400)
[2020-05-06 14:34] LABS: ALANINE AMINOTRANSFERASE 22 U/L (0-55); ALKALINE PHOSPHATASE 129 U/L (40-136); BILIRUBIN,TOTAL 0.4 MG/DL (0.1-1.0); BUN/CREATININE RATIO 10; CALCIUM 8.7 MG/DL (8.5-10.1); CARBON DIOXIDE 21 MMOL/L (21-32); CHLORIDE 111 MMOL/L (98-107); CREATININE SERUM 0.73 MG/DL (0.60-1.30); GFR ESTIMATED > 60; GLUCOSE 91 MG/DL (70-105); SODIUM 142 MMOL/L (135-145); TOTAL PROTEIN 6.6 GM/DL (6.4-8.2)
[~2020-05-27 10:57] MED LIST changes: +ATEZOLIZUMAB 1,200 MG in NS (IVPB) CANCER CENTER 250 ML IV SCH; -GADOBUTROL 10 MMOL/10 ML (GADAVIST) VIAL IV ONE; -HOLD METFORMIN - RECEIVED CONTRAST 20 ML VIAL IV SCH; -IOHEXOL 350 MG/ML 100 ML (OMNIPAQUE 350) VIAL IV ONE; -NS 100 ML (IVPB) BAG IV ONE; +NS IV 1000 ML (CANCER CTR) IV SCH
[2020-05-27 11:14] LABS: BASOPHILS % (AUTO) 1 % (0-10); EOSINOPHILS # (AUTO) 0.1 10^3/uL (0.0-0.3); EOSINOPHILS % (AUTO) 1 % (0-10); HEMATOCRIT 38 % (35-52); HEMOGLOBIN 12.1 g/dL (11.5-16.0); LYMPHOCYTES # (AUTO) 2.1 10^3/uL (1.0-4.0); LYMPHOCYTES % (AUTO) 31 % (12-44); MEAN CORPUSCULAR HEMOGLOBIN 30 pg (25-34); MEAN CORPUSCULAR HGB CONC 32 g/dL (32-36); MEAN CORPUSCULAR VOLUME 93 fL (80-99); MEAN PLATELET VOLUME 9.5 fL (9.0-12.2); MONOCYTES # (AUTO) 0.5 10^3/uL (0.0-1.0); MONOCYTES % (AUTO) 7 % (0-12); NEUTROPHILS % (AUTO) 59 % (42-75); PLATELET COUNT 226 10^3/uL (130-400); WHITE BLOOD COUNT 6.7 10^3/uL (4.3-11.0)
[2020-05-27 11:44] LABS: ALANINE AMINOTRANSFERASE 19 U/L (0-55); ALKALINE PHOSPHATASE 137 U/L (40-136); BILIRUBIN,TOTAL 0.4 MG/DL (0.1-1.0); BUN/CREATININE RATIO 8; CALCIUM 8.8 MG/DL (8.5-10.1); CARBON DIOXIDE 24 MMOL/L (21-32); CHLORIDE 109 MMOL/L (98-107); CREATININE SERUM 0.76 MG/DL (0.60-1.30); GFR ESTIMATED > 60; GLUCOSE 99 MG/DL (70-105); SODIUM 141 MMOL/L (135-145); TOTAL PROTEIN 6.7 GM/DL (6.4-8.2)
== END 2020-06-03 | disposition home or self-care (01) ==
LOC: ONC 10:57
PROVIDERS: ATTEND Internal Medicine Hematology & Oncology
DX: Z51.11 Encounter for antineoplastic chemotherapy (principal); C34.90 Malignant neoplasm of unspecified part of unspecified bronchus or lung; C79.51 Secondary malignant neoplasm of bone; C79.70 Secondary malignant neoplasm of unspecified adrenal gland; C78.7 Secondary malignant neoplasm of liver and intrahepatic bile duct
CPT/HCPCS: 80053; 83615; 85025; 96413; G0463; 36591; 84443

== ENCOUNTER → 2020-06-17 | Outpatient (CLI) | payer MEDICAID ==
[~2020-06-17] MED LIST changes: -ATEZOLIZUMAB 1,200 MG in NS (IVPB) CANCER CENTER 250 ML IV SCH; +GADOBUTROL 7.5 MMOL/7.5 ML (GADAVIST) VIAL IV ONE; -NS IV 1000 ML (CANCER CTR) IV SCH
--- NOTE | 2020-06-17 09:55 | Diagnostic Imaging Report ---
PROCEDURE: MR imaging of the brain with and without contrast. TECHNIQUE: Multiplanar, multisequence MR imaging of the brain was performed with and without contrast. INDICATION: Lung and liver cancer. COMPARISON: Brain MRI 03/24/2020. FINDINGS: There is a small subcentimeter roughly 7 mm area of abnormal elevated T2 signal intensity and cortical enhancement in the high posterior right superior temporal gyrus, seen best on axial post contrast enhanced T1 image 19 series 9, coronal 8 series 10, and sagittal image 19 series 11. This is associated with abnormal diffusion restriction. It exerts no mass effect. The appearance may reflect subacute ischemia versus new small mass. A repeat exam in roughly 4 weeks time should resolve this indeterminacy. There is no mass effect, hemorrhage, shift, herniation, or hydrocephalus. No other area of suspicious or abnormal signal or enhancement is found. This is a new finding from previous and there has been no other interval change. No suspicious calvarial signal abnormalities. There is paranasal sinus membrane disease and a shallow air-fluid level in the left maxillary sinus. The orbits are unremarkable. The ventricular system is nondilated and nondisplaced. There is no hemorrhage. IMPRESSION: 1. Small peripheral cortical area of abnormal diffusion restriction, signal, and enhancement in the right posterior superior temporal gyrus. Its signal and morphology favor changes of subacute ischemia; however, mass could not be entirely excluded and followup in 1 month is suggested. 2. No other significant finding aside from features of left maxillary sinusitis. Dictated by: Dictated on workstation # [id number]
== END ==
LOC: RAD 07:45
PROVIDERS: ATTEND Internal Medicine Hematology & Oncology
DX: C34.2 Malignant neoplasm of middle lobe, bronchus or lung (principal); C79.51 Secondary malignant neoplasm of bone; C22.9 Malignant neoplasm of liver, not specified as primary or secondary
CPT/HCPCS: 70553

== ENCOUNTER → 2020-07-23 | Outpatient (CLI) | payer MEDICAID ==
[~2020-07-23] MED LIST changes: +BARIUM SUSPENSION 2.1% (VANILLA SILQ) 450 ML PO ONE; +CATHETER FLUSH 10 ML SYR IV PRN; +HOLD METFORMIN - RECEIVED CONTRAST 20 ML VIAL IV SCH; +IOHEXOL 350 MG/ML 100 ML (OMNIPAQUE 350) VIAL IV ONE; +NS 100 ML (IVPB) BAG IV ONE
[2020-07-23] MEDS: CATHETER FLUSH 10 ML SYR IV PRN ×2 (11:28→11:57)
--- NOTE | 2020-07-23 12:51 | Diagnostic Imaging Report ---
PROCEDURE: MR imaging of the brain with and without contrast. TECHNIQUE: Multiplanar, multisequence MR imaging of the brain was performed with and without contrast. INDICATION: History of lung and liver cancer. Recheck for brain mets. COMPARISON: 06/17/2020. FINDINGS: Interval increase in size in the previously visualized small focus of enhancement in the right parietal lobe, now measuring 1.2 x 0.8 cm. This again demonstrates restricted diffusion. New small foci of enhancement or restricted diffusion are now seen in the lateral aspect of the left frontal lobe measuring 0.5 cm and within the right parietal lobe at the vertex measuring 0.5 cm. There is also a new focus of enhancement in the medial aspect of the left temporal lobe measuring 0.4 cm. No evidence of acute ischemia or hemorrhage. No midline shift or herniation. The ventricles, cortical sulci, and basilar cisterns are symmetric and unremarkable. The sellar and suprasellar regions have a normal appearance. The major intracranial flow voids are intact. The brainstem and posterior fossa are unremarkable. The paranasal sinuses and mastoid air cells demonstrate normal signal characteristics. The globes and orbits are symmetric and unremarkable. The scalp and calvarium have a normal appearance. IMPRESSION: 1. Interval increase in size in the enhancing lesion within the right parietal lobe, most consistent with increasing intracranial metastatic disease given the patient history. New additional foci of enhancement and restricted diffusion are seen in the left frontal lobe, right parietal lobe, and left temporal lobe, representing additional foci of metastatic disease. No associated midline shift or herniation. 2. No acute ischemia or hemorrhage. Dictated by: Dictated on workstation # [id number]
--- NOTE | 2020-07-23 13:09 | Diagnostic Imaging Report ---
PROCEDURE: CT chest and abdomen with contrast. TECHNIQUE: Multiple contiguous axial images were obtained through the chest and abdomen after the administration of intravenous contrast. Auto Exposure Controls were utilized during the CT exam to meet ALARA standards for radiation dose reduction. INDICATION: Lung carcinoma. Patient has known liver metastases. Study is performed for follow-up. Comparison is made with prior chest from 03/24/2020. CT CHEST: A left chest wall port remains in place. There is no axillary lymphadenopathy. No mediastinal or hilar lymphadenopathy is identified. Small lymph node in the right hilum is approximately 10 mm x 11 mm compared with 10 mm x 9 mm. Left hilum is unremarkable. No pericardial or pleural fluid is detected. There is minimal atelectasis or scarring in the right lower lobe. No pulmonary mass, nodule or infiltrate is detected. Areas of sclerosis in the thoracic spine are again noted consistent with osseous metastatic disease. CT ABDOMEN: There has been development of numerous low-density lesions throughout the liver since the prior CT consistent with worsening hepatic metastatic disease. Largest lesion is in the right lobe of the liver measuring approximately 13 mm in size. The gallbladder is surgically absent. There is no biliary ductal dilatation. The pancreas and spleen are unremarkable. No adrenal mass is detected. Kidneys are unremarkable. Aorta is nonaneurysmal. Sclerotic lesions throughout the lumbar spine are noted consistent with osseous metastatic disease. IMPRESSION: 1. Development of numerous low-density lesions throughout the liver consistent with worsening hepatic metastatic disease. 2. Stable CT chest since prior CT from 03/24/2020. 3. No evidence of abdominal lymphadenopathy. 4. Osseous metastatic disease. Dictated by: Dictated on workstation # [id number]
--- NOTE | 2020-07-23 14:41 | Diagnostic Imaging Report ---
INDICATION: Lung cancer. Patient was administered 26.7 mCi technetium 99m MDP intravenously and whole-body imaging was performed after a three-hour delay. Correlation is made with prior bone scan from 03/24/2020. FINDINGS: Bone scan remains unremarkable. No definite abnormal foci are seen to suggest osseous metastatic disease. There is normal physiologic distribution of radiotracer. There is uptake by the kidneys with excretion into the urinary bladder. IMPRESSION: Continued unremarkable whole body bone scan. There is no scintigraphic evidence of osseous metastatic disease. Dictated by: Dictated on workstation # [id number]
== END ==
LOC: CARD 06-15 12:30
PROVIDERS: ATTEND Internal Medicine Hematology & Oncology
DX: C34.2 Malignant neoplasm of middle lobe, bronchus or lung (principal); C22.9 Malignant neoplasm of liver, not specified as primary or secondary; C79.51 Secondary malignant neoplasm of bone
CPT/HCPCS: 70553; 71260; 74160; 78306; A9503

== ENCOUNTER 2020-09-04 10:47 | Outpatient (RCR) | payer MEDICAID ==
[2020-06-18 14:56] LABS: BASOPHILS % (AUTO) 0 % (0-10); EOSINOPHILS # (AUTO) 0.1 10^3/uL (0.0-0.3); EOSINOPHILS % (AUTO) 1 % (0-10); HEMATOCRIT 37 % (35-52); HEMOGLOBIN 11.9 g/dL (11.5-16.0); LYMPHOCYTES # (AUTO) 2.7 10^3/uL (1.0-4.0); LYMPHOCYTES % (AUTO) 37 % (12-44); MEAN CORPUSCULAR HEMOGLOBIN 31 pg (25-34); MEAN CORPUSCULAR HGB CONC 32 g/dL (32-36); MEAN CORPUSCULAR VOLUME 96 fL (80-99); MEAN PLATELET VOLUME 9.2 fL (9.0-12.2); MONOCYTES # (AUTO) 0.5 10^3/uL (0.0-1.0); MONOCYTES % (AUTO) 6 % (0-12); NEUTROPHILS % (AUTO) 55 % (42-75); PLATELET COUNT 212 10^3/uL (130-400); WHITE BLOOD COUNT 7.3 10^3/uL (4.3-11.0)
[2020-06-18 15:22] LABS: ALANINE AMINOTRANSFERASE 14 U/L (0-55); ALBUMIN 3.9 GM/DL (3.2-4.5); ALKALINE PHOSPHATASE 128 U/L (40-136); BILIRUBIN,TOTAL 0.3 MG/DL (0.1-1.0); BUN/CREATININE RATIO 7; CALCIUM 8.4 MG/DL (8.5-10.1); CARBON DIOXIDE 24 MMOL/L (21-32); CHLORIDE 110 MMOL/L (98-107); CREATININE SERUM 0.72 MG/DL (0.60-1.30); GFR ESTIMATED > 60; GLUCOSE 103 MG/DL (70-105); POTASSIUM 3.9 MMOL/L (3.6-5.0); SODIUM 142 MMOL/L (135-145); TOTAL PROTEIN 6.6 GM/DL (6.4-8.2)
[2020-07-09 10:51] LABS: BASOPHILS % (AUTO) 0 % (0-10); EOSINOPHILS # (AUTO) 0.1 10^3/uL (0.0-0.3); EOSINOPHILS % (AUTO) 2 % (0-10); HEMATOCRIT 37 % (35-52); HEMOGLOBIN 11.7 g/dL (11.5-16.0); LYMPHOCYTES % (AUTO) 33 % (12-44); MEAN CORPUSCULAR HEMOGLOBIN 31 pg (25-34); MEAN CORPUSCULAR HGB CONC 32 g/dL (32-36); MEAN CORPUSCULAR VOLUME 98 fL (80-99); MEAN PLATELET VOLUME 9.6 fL (9.0-12.2); MONOCYTES # (AUTO) 0.5 10^3/uL (0.0-1.0); MONOCYTES % (AUTO) 8 % (0-12); NEUTROPHILS # (AUTO) 3.4 10^3/uL (1.8-7.8); NEUTROPHILS % (AUTO) 56 % (42-75); PLATELET COUNT 191 10^3/uL (130-400)
[2020-07-09 11:12] LABS: ALANINE AMINOTRANSFERASE 15 U/L (0-55); ALBUMIN 3.9 GM/DL (3.2-4.5); ALKALINE PHOSPHATASE 125 U/L (40-136); BILIRUBIN,TOTAL 0.4 MG/DL (0.1-1.0); BUN/CREATININE RATIO 14; CALCIUM 8.6 MG/DL (8.5-10.1); CARBON DIOXIDE 26 MMOL/L (21-32); CHLORIDE 111 MMOL/L (98-107); CREATININE SERUM 0.73 MG/DL (0.60-1.30); GFR ESTIMATED > 60; GLUCOSE 102 MG/DL (70-105); POTASSIUM 4.1 MMOL/L (3.6-5.0); SODIUM 139 MMOL/L (135-145); TOTAL PROTEIN 6.5 GM/DL (6.4-8.2)
[2020-07-30 09:05] LABS: BASOPHILS # (AUTO) 0.1 10^3/uL (0.0-0.1); BASOPHILS % (AUTO) 1 % (0-10); EOSINOPHILS % (AUTO) 0 % (0-10); HEMATOCRIT 41 % (35-52); HEMOGLOBIN 13.7 g/dL (11.5-16.0); LYMPHOCYTES # (AUTO) 1.3 10^3/uL (1.0-4.0); LYMPHOCYTES % (AUTO) 9 % (12-44); MEAN CORPUSCULAR HEMOGLOBIN 32 pg (25-34); MEAN CORPUSCULAR HGB CONC 33 g/dL (32-36); MEAN CORPUSCULAR VOLUME 95 fL (80-99); MEAN PLATELET VOLUME 9.9 fL (9.0-12.2); MONOCYTES % (AUTO) 7 % (0-12); NEUTROPHILS # (AUTO) 12.1 10^3/uL (1.8-7.8); NEUTROPHILS % (AUTO) 79 % (42-75); PLATELET COUNT 209 10^3/uL (130-400); WHITE BLOOD COUNT 15.3 10^3/uL (4.3-11.0)
[2020-07-30 09:27] LABS: ALANINE AMINOTRANSFERASE 95 U/L (0-55); ALBUMIN 3.8 GM/DL (3.2-4.5); ALKALINE PHOSPHATASE 97 U/L (40-136); BILIRUBIN,TOTAL 0.3 MG/DL (0.1-1.0); BUN/CREATININE RATIO 22; CARBON DIOXIDE 23 MMOL/L (21-32); CHLORIDE 104 MMOL/L (98-107); CREATININE SERUM 0.79 MG/DL (0.60-1.30); GFR ESTIMATED > 60; GLUCOSE 128 MG/DL (70-105); POTASSIUM 3.9 MMOL/L (3.6-5.0); SODIUM 139 MMOL/L (135-145); TOTAL PROTEIN 6.2 GM/DL (6.4-8.2)
[2020-08-17 10:38] LABS: EOSINOPHILS % (AUTO) 0 % (0-10); HEMOGLOBIN 13.1 g/dL (11.5-16.0); MEAN CORPUSCULAR HEMOGLOBIN 32 pg (25-34)
[2020-08-17 10:39] LABS: BASOPHILS % (AUTO) 1 % (0-10); HEMATOCRIT 40 % (35-52); LYMPHOCYTES % (AUTO) 12 % (12-44); MEAN CORPUSCULAR HGB CONC 33 g/dL (32-36); MEAN CORPUSCULAR VOLUME 97 fL (80-99); MEAN PLATELET VOLUME 9.5 fL (9.0-12.2); MONOCYTES # (AUTO) 0.6 10^3/uL (0.0-1.0); MONOCYTES % (AUTO) 6 % (0-12); NEUTROPHILS # (AUTO) 6.8 10^3/uL (1.8-7.8); NEUTROPHILS % (AUTO) 77 % (42-75); PLATELET COUNT 109 10^3/uL (130-400); WHITE BLOOD COUNT 8.8 10^3/uL (4.3-11.0)
[2020-08-17 11:00] LABS: ALANINE AMINOTRANSFERASE 405 U/L (0-55); ALBUMIN 3.7 GM/DL (3.2-4.5); ALKALINE PHOSPHATASE 87 U/L (40-136); BILIRUBIN,TOTAL 0.6 MG/DL (0.1-1.0); BUN/CREATININE RATIO 26; CARBON DIOXIDE 26 MMOL/L (21-32); CHLORIDE 104 MMOL/L (98-107); CREATININE SERUM 0.65 MG/DL (0.60-1.30); GFR ESTIMATED > 60; GLUCOSE 86 MG/DL (70-105); POTASSIUM 3.8 MMOL/L (3.6-5.0); SODIUM 138 MMOL/L (135-145)
[2020-09-02 09:26] LABS: EOSINOPHILS % (AUTO) 0 % (0-10); HEMOGLOBIN 11.9 g/dL (11.5-16.0)
[2020-09-02 09:28] LABS: BASOPHILS # (AUTO) 0.1 10^3/uL (0.0-0.1); BASOPHILS % (AUTO) 1 % (0-10); HEMATOCRIT 37 % (35-52); LYMPHOCYTES # (AUTO) 1.3 10^3/uL (1.0-4.0); LYMPHOCYTES % (AUTO) 19 % (12-44); MEAN CORPUSCULAR HEMOGLOBIN 32 pg (25-34); MEAN CORPUSCULAR HGB CONC 33 g/dL (32-36); MEAN CORPUSCULAR VOLUME 98 fL (80-99); MEAN PLATELET VOLUME 10.4 fL (9.0-12.2); MONOCYTES # (AUTO) 0.6 10^3/uL (0.0-1.0); MONOCYTES % (AUTO) 8 % (0-12); NEUTROPHILS # (AUTO) 4.4 10^3/uL (1.8-7.8); NEUTROPHILS % (AUTO) 64 % (42-75); PLATELET COUNT 101 10^3/uL (130-400); WHITE BLOOD COUNT 6.9 10^3/uL (4.3-11.0)
[2020-09-02 09:41] LABS: ALANINE AMINOTRANSFERASE 97 U/L (0-55); ALBUMIN 3.5 GM/DL (3.2-4.5); ALKALINE PHOSPHATASE 102 U/L (40-136); BILIRUBIN,TOTAL 0.4 MG/DL (0.1-1.0); BUN/CREATININE RATIO 13; CALCIUM 9.1 MG/DL (8.5-10.1); CARBON DIOXIDE 27 MMOL/L (21-32); CHLORIDE 105 MMOL/L (98-107); CREATININE SERUM 0.67 MG/DL (0.60-1.30); GFR ESTIMATED > 60; GLUCOSE 94 MG/DL (70-105); POTASSIUM 3.8 MMOL/L (3.6-5.0); SODIUM 141 MMOL/L (135-145)
[~2020-09-04] VITALS: Ht 162.6 cm; Wt 83.5 kg
[~2020-09-04 10:47] MED LIST changes: +ATEZOLIZUMAB 1,200 MG in NS (IVPB) CANCER CENTER 250 ML IV SCH; -BARIUM SUSPENSION 2.1% (VANILLA SILQ) 450 ML PO ONE; +CARBOPLATIN IV SCH; +D5W IV SCH; +ETOPOSIDE 180 MG in NORMAL SALINE (CANCER CENTER) 500 ML IV SCH; +FOSAPREPITANT (CANCER CENTER) 150 MG in NS (IVPB) CANCER CENTER ONLY 150 ML IV SCH; -GADOBUTROL 7.5 MMOL/7.5 ML (GADAVIST) VIAL IV ONE; -HOLD METFORMIN - RECEIVED CONTRAST 20 ML VIAL IV SCH; -IOHEXOL 350 MG/ML 100 ML (OMNIPAQUE 350) VIAL IV ONE; -NS 100 ML (IVPB) BAG IV ONE; +NS IV 1000 ML (CANCER CTR) IV SCH; -OMEP40CA27 PO; +OMEP40CA6 PO
== END 2020-09-16 | disposition home or self-care (01) ==
LOC: ONC 10:47
PROVIDERS: ATTEND Internal Medicine Hematology & Oncology
DX: Z51.11 Encounter for antineoplastic chemotherapy (principal); C34.90 Malignant neoplasm of unspecified part of unspecified bronchus or lung; C79.51 Secondary malignant neoplasm of bone; C79.70 Secondary malignant neoplasm of unspecified adrenal gland; C78.7 Secondary malignant neoplasm of liver and intrahepatic bile duct; Z92.21 Personal history of antineoplastic chemotherapy
CPT/HCPCS: 80053; 83615; 84443; 85025; 96413; G0463; 36591; 77280; 77290; 77295; 77300; 77334; 77336; 77417; 77470; 96367; 96375; 96417; 99204; 99213; 99214

== ENCOUNTER → 2020-09-08 | Outpatient (CLI) | payer MEDICAID ==
[~2020-09-08] MED LIST changes: -ATEZOLIZUMAB 1,200 MG in NS (IVPB) CANCER CENTER 250 ML IV SCH; -CARBOPLATIN IV SCH; -CATHETER FLUSH 10 ML SYR IV PRN; -D5W IV SCH; -ETOPOSIDE 180 MG in NORMAL SALINE (CANCER CENTER) 500 ML IV SCH; -FOSAPREPITANT (CANCER CENTER) 150 MG in NS (IVPB) CANCER CENTER ONLY 150 ML IV SCH; -NS IV 1000 ML (CANCER CTR) IV SCH
[2020-09-08 12:18] LABS: HEMATOCRIT 366 % (35-52); MEAN CORPUSCULAR HEMOGLOBIN 32 PG (25-34); MEAN CORPUSCULAR HGB CONC 36 G/DL (32-36); MEAN CORPUSCULAR VOLUME 91 FL (80-99); MEAN PLATELET VOLUME 10.4 FL (7.4-10.4); PLATELET COUNT 74 10^3/uL (130-400); WHITE BLOOD COUNT 3.1 10^3/uL (4.3-11.0)
[2020-09-08 12:19] LABS: BASOPHILS % (AUTO) 1 % (0-10); EOSINOPHILS % (AUTO) 0 % (0-10); LYMPHOCYTES # (AUTO) 0.7 X 10^3 (1.0-4.0); LYMPHOCYTES % (AUTO) 21 % (12-44); MONOCYTES # (AUTO) 0.1 X 10^3 (0.0-1.0); MONOCYTES % (AUTO) 2 % (0-12); NEUTROPHILS # (AUTO) 2.2 X 10^3 (1.8-7.8); NEUTROPHILS % (AUTO) 72 % (42-75)
[2020-09-08 12:46] LABS: BUN/CREATININE RATIO 22; CALCIUM 9.4 MG/DL (8.5-10.1); CARBON DIOXIDE 26 MMOL/L (21-32); CHLORIDE 94 MMOL/L (98-107); CREATININE SERUM 0.79 MG/DL (0.60-1.30); GFR ESTIMATED > 60; GLUCOSE 106 MG/DL (70-105); POTASSIUM 4.3 MMOL/L (3.6-5.0); SODIUM 130 MMOL/L (135-145)
== END ==
LOC: LAB FS 12:04
PROVIDERS: ATTEND Nurse Practitioner Adult Health
DX: Z51.11 Encounter for antineoplastic chemotherapy (principal)
CPT/HCPCS: 36415; 80048; 85025

== ENCOUNTER → 2020-11-05 | Outpatient (CLI) | payer MEDICAID ==
[2020-11-05 09:41] LABS: HEMATOCRIT 23 % (35-52); HEMOGLOBIN 7.2 g/dL (11.5-16.0); MEAN CORPUSCULAR HEMOGLOBIN 32 pg (25-34); WHITE BLOOD COUNT 2.7 10^3/uL (4.3-11.0)
[2020-11-05 09:42] LABS: MEAN CORPUSCULAR HGB CONC 31 g/dL (32-36); MEAN CORPUSCULAR VOLUME 102 fL (80-99); PLATELET COUNT 91 10^3/uL (130-400)
[2020-11-05 10:59] LABS: BASOPHILS % (AUTO) 0 % (0-10); EOSINOPHILS % (AUTO) 0 % (0-10); LYMPHOCYTES # (AUTO) 1.4 X 10^3 (1.0-4.0); LYMPHOCYTES % (AUTO) 52 % (12-44); MONOCYTES % (AUTO) 1 % (0-12); NEUTROPHILS # (AUTO) 1.2 X 10^3 (1.8-7.8); NEUTROPHILS % (AUTO) 45 % (42-75)
[2020-11-05 11:00] LABS: CREATININE SERUM 0.74 MG/DL (0.60-1.30); POTASSIUM 3.9 MMOL/L (3.6-5.0)
[2020-11-05 11:01] LABS: CALCIUM 8.6 MG/DL (8.5-10.1)
== END ==
LOC: LAB FS 09:13
PROVIDERS: ATTEND Internal Medicine Hematology & Oncology
DX: C34.2 Malignant neoplasm of middle lobe, bronchus or lung (principal); C79.51 Secondary malignant neoplasm of bone; C22.9 Malignant neoplasm of liver, not specified as primary or secondary
CPT/HCPCS: 36415; 80048; 85025; 85027

== ENCOUNTER 2020-11-11 12:57 | Outpatient (RCR) | payer MEDICAID ==
[~2020-11-11 12:57] MED LIST changes: +CYCL10TA25 PO; -CYCL10TA9 PO
[2020-11-11 13:18] LABS: WHITE BLOOD COUNT 2.1 10^3/uL (4.3-11.0)
[2020-11-11 13:19] LABS: BASOPHILS % (AUTO) 0 % (0-10); EOSINOPHILS % (AUTO) 1 % (0-10); HEMATOCRIT 23 % (35-52); HEMOGLOBIN 7.3 g/dL (11.5-16.0); LYMPHOCYTES % (AUTO) 82 % (12-44); MEAN CORPUSCULAR HEMOGLOBIN 33 pg (25-34); MEAN CORPUSCULAR HGB CONC 32 g/dL (32-36); MEAN CORPUSCULAR VOLUME 102 fL (80-99); MEAN PLATELET VOLUME 10.8 fL (9.0-12.2); MONOCYTES % (AUTO) 15 % (0-12); NEUTROPHILS # (AUTO) 0.1 X 10^3 (1.8-7.8); NEUTROPHILS % (AUTO) 2 % (42-75); PLATELET COUNT 55 10^3/uL (130-400)
[2020-11-11 13:20] LABS: LYMPHOCYTES # (AUTO) 1.7 X 10^3 (1.0-4.0); MONOCYTES # (AUTO) 0.3 X 10^3 (0.0-1.0)
[2020-11-11 13:41] LABS: CALCIUM 8.7 MG/DL (8.5-10.1); CREATININE SERUM 0.67 MG/DL (0.60-1.30); POTASSIUM 3.3 MMOL/L (3.6-5.0)
== END 2021-02-09 | disposition home or self-care (01) ==
LOC: LAB FS 12:57
PROVIDERS: ATTEND Internal Medicine Hematology & Oncology
DX: C34.2 Malignant neoplasm of middle lobe, bronchus or lung (principal); C79.51 Secondary malignant neoplasm of bone; C22.9 Malignant neoplasm of liver, not specified as primary or secondary
CPT/HCPCS: 36415; 80048; 85025

== ENCOUNTER → 2020-11-18 | Outpatient (CLI) | payer MEDICAID ==
[~2020-11-18] MED LIST changes: -CYCL10TA25 PO; +CYCL10TA9 PO
[2020-11-18 13:42] LABS: BASOPHILS % (AUTO) 0 % (0-10); EOSINOPHILS % (AUTO) 0 % (0-10); HEMATOCRIT 27 % (35-52); HEMOGLOBIN 8.3 g/dL (11.5-16.0); LYMPHOCYTES % (AUTO) 49 % (12-44); MEAN CORPUSCULAR HEMOGLOBIN 32 pg (25-34); MEAN CORPUSCULAR HGB CONC 31 g/dL (32-36); MEAN CORPUSCULAR VOLUME 103 fL (80-99); MEAN PLATELET VOLUME 10.8 fL (9.0-12.2); MONOCYTES % (AUTO) 16 % (0-12); NEUTROPHILS % (AUTO) 29 % (42-75); PLATELET COUNT 136 10^3/uL (130-400); WHITE BLOOD COUNT 4.3 10^3/uL (4.3-11.0)
[2020-11-18 13:43] LABS: LYMPHOCYTES # (AUTO) 2.1 X 10^3 (1.0-4.0); MONOCYTES # (AUTO) 0.7 X 10^3 (0.0-1.0); NEUTROPHILS # (AUTO) 1.2 X 10^3 (1.8-7.8)
[2020-11-18 14:03] LABS: CALCIUM 8.7 MG/DL (8.5-10.1); CREATININE SERUM 0.69 MG/DL (0.60-1.30)
== END ==
LOC: LAB FS 13:20
PROVIDERS: ATTEND Internal Medicine Hematology & Oncology
DX: C34.2 Malignant neoplasm of middle lobe, bronchus or lung (principal); C22.9 Malignant neoplasm of liver, not specified as primary or secondary; C79.51 Secondary malignant neoplasm of bone
CPT/HCPCS: 36415; 80048; 85025

== ENCOUNTER → 2020-11-23 | Outpatient (CLI) | payer MEDICAID ==
[~2020-11-23] MED LIST changes: +CATHETER FLUSH 10 ML SYR IV PRN; +GADOBUTROL 7.5 MMOL/7.5 ML (GADAVIST) VIAL IV ONE; +HOLD METFORMIN - RECEIVED CONTRAST 20 ML VIAL IV SCH; +IOHEXOL 350 MG/ML 100 ML (OMNIPAQUE 350) VIAL IV ONE; +NS 100 ML (IVPB) BAG IV ONE
--- NOTE | 2020-11-23 13:24 | Diagnostic Imaging Report ---
PROCEDURE: CT chest with contrast, CT abdomen with and without contrast. TECHNIQUE: Precontrast acquisitions were acquired through the abdomen. Multiple contiguous axial images were obtained through the chest and abdomen after administration of intravenous contrast. Auto Exposure Controls were utilized during the CT exam to meet ALARA standards for radiation dose reduction. INDICATION: Lung cancer. COMPARISON: Correlation is made with the prior CT from 07/23/2020. FINDINGS: CT CHEST: The left chest wall port is again noted with the tip entering the right atrium. No axillary lymphadenopathy is detected. No mediastinal lymphadenopathy is identified. The previously measured lymph node in the right hilum appears stable at 10 mm x 10 mm. The left hilum is unremarkable. There is no pericardial or pleural fluid. No pulmonary masses are identified. There is some linear atelectasis in the left lower lobe. Minimal scarring or atelectasis in the right upper lobe is stable. Sclerotic lesions in the thoracic spine are again noted, consistent with osseous metastatic disease. IMPRESSION: Stable CT chest since the exam from 07/23/2020. CT ABDOMEN: There is diffuse low-density throughout the liver, consistent with hepatic steatosis. The previously noted low-density lesions in the liver are less conspicuous on today's study. Delayed images do show some hyperdense lesions within the liver. The lesion in the right lobe (previously 13 mm) measures 12 mm on today's exam. No new lesions are identified. The pancreas and spleen are unremarkable. There is no adrenal mass. The kidneys are unremarkable. The aorta is nonaneurysmal. No central retroperitoneal or mesenteric lymphadenopathy is seen. There are some sclerotic lesions in the lumbar spine, consistent with osseous metastatic disease. IMPRESSION: 1. Hepatic steatosis. 2. Hepatic lesions are less conspicuous on today's study, perhaps owing to response to therapy. There continue to be several hyperdense or enhancing lesions within the liver, consistent with hepatic metastatic disease. No new mass is detected. There is no evidence of abdominal lymphadenopathy. Note is made of osseous metastatic disease. Dictated by: Dictated on workstation # [id number]
--- NOTE | 2020-11-23 14:07 | Diagnostic Imaging Report ---
CLINICAL INDICATION: Patient with liver and lung cancer. EXAM: MRI of the brain performed without and with 7 cc of Gadavist IV contrast. Sequences include axial DWI, ADC map, axial gradient echo, axial T2, axial FLAIR, axial T1, axial T1 post IV contrast, coronal T1 fat-sat post IV contrast, and sagittal T1 post IV contrast. COMPARISON: MRI of the brain with and without contrast dated 07/23/2020. FINDINGS: There is interval resolution of the previously seen intra-axial enhancing lesions previously within the left frontal lobe, right parietal lobe, and left temporal lobe regions. There are no new areas of abnormal IV contrast enhancement or developing metastatic disease. There is no abnormal brain parenchymal signal. There is no evidence of acute cerebral infarct, intracranial hemorrhage, or gross mass effect. The brain parenchymal volume appears appropriate for patient's age. There is normal dugan-white matter distinction. There is no significant midline shift or herniation. The [place] vascular structures show no gross abnormality as visualized. The pituitary gland, sella, and suprasellar regions are unremarkable as visualized. There is no evidence of hydrocephalus. The basal cisterns are unremarkable. The skull, extracranial soft tissue, and orbits are unremarkable. There is interval development of consolidation in the right sphenoid sinus and mild mucosal thickening involving the left sphenoid sinus region. There are large amounts of fluid in the right mastoid air cells and right middle ear region and [id number] amount involving the left mastoid air cells and left middle ear region. IMPRESSION: 1: There is no evidence of acute intracranial process. There are no new areas of abnormal IV contrast enhancement or metastatic disease. 2: Previously seen three areas of metastatic enhancing lesions involving the brain have resolved. 3: There is interval development of moderate sphenoid sinus disease. 4: There is fluid in both middle ear and mastoid air cell regions (right side more than the left), which may be related to otomastoiditis. Dictated by: Dictated on workstation # [id number]
--- NOTE | 2020-11-23 18:22 | Diagnostic Imaging Report ---
INDICATION: Lung carcinoma. Patient was administered 24.9 mCi technetium 99m MDP intravenously and whole-body imaging was performed after 3-hour delay. Correlation is made with prior whole body bone scan from 07/23/2020. Normal uptake of radio labeled phosphate to the axial and appendicular skeletons noted. There is uptake by both kidneys with excretion into the urinary bladder. No abnormal foci of tracer accumulation is seen to suggest osseous metastatic disease. IMPRESSION: No scintigraphic evidence of osseous metastatic disease. Dictated by: Dictated on workstation # [id number]
== END ==
LOC: CARD 11:56
PROVIDERS: ATTEND Internal Medicine Hematology & Oncology
DX: C34.2 Malignant neoplasm of middle lobe, bronchus or lung (principal); C79.51 Secondary malignant neoplasm of bone; C22.9 Malignant neoplasm of liver, not specified as primary or secondary; J32.3 Chronic sphenoidal sinusitis; K76.0 Fatty (change of) liver, not elsewhere classified
CPT/HCPCS: 70553; 71260; 74170; 78306; A9503

== ENCOUNTER → 2020-12-02 | Outpatient (CLI) | payer MEDICAID ==
[~2020-12-02] MED LIST changes: -CATHETER FLUSH 10 ML SYR IV PRN; -GADOBUTROL 7.5 MMOL/7.5 ML (GADAVIST) VIAL IV ONE; -HOLD METFORMIN - RECEIVED CONTRAST 20 ML VIAL IV SCH; -IOHEXOL 350 MG/ML 100 ML (OMNIPAQUE 350) VIAL IV ONE; -NS 100 ML (IVPB) BAG IV ONE
[2020-12-02 13:50] LABS: EOSINOPHILS % (AUTO) 0 % (0-10); HEMATOCRIT 26 % (35-52); LYMPHOCYTES % (AUTO) 27 % (12-44); MEAN CORPUSCULAR HEMOGLOBIN 32 pg (25-34); MEAN CORPUSCULAR HGB CONC 31 g/dL (32-36); MEAN CORPUSCULAR VOLUME 103 fL (80-99); MEAN PLATELET VOLUME 10.8 fL (9.0-12.2); MONOCYTES % (AUTO) 1 % (0-12); NEUTROPHILS % (AUTO) 69 % (42-75); PLATELET COUNT 89 10^3/uL (130-400); WHITE BLOOD COUNT 5.1 10^3/uL (4.3-11.0)
[2020-12-02 13:51] LABS: BASOPHILS % (AUTO) 1 % (0-10); LYMPHOCYTES # (AUTO) 1.4 X 10^3 (1.0-4.0); NEUTROPHILS # (AUTO) 3.5 X 10^3 (1.8-7.8)
[2020-12-02 13:59] LABS: CALCIUM 8.8 MG/DL (8.5-10.1); CREATININE SERUM 0.6 MG/DL (0.60-1.30); POTASSIUM 3.2 MMOL/L (3.6-5.0)
== END ==
LOC: LAB FS 13:10
PROVIDERS: ATTEND Internal Medicine Hematology & Oncology
DX: C34.2 Malignant neoplasm of middle lobe, bronchus or lung (principal); C79.51 Secondary malignant neoplasm of bone; C22.9 Malignant neoplasm of liver, not specified as primary or secondary
CPT/HCPCS: 36415; 80048; 85025

== ENCOUNTER → 2020-12-09 | Outpatient (CLI) | payer MEDICAID ==
[2020-12-09 13:37] LABS: HEMATOCRIT 24 % (35-52); HEMOGLOBIN 7.5 g/dL (11.5-16.0); MEAN CORPUSCULAR HEMOGLOBIN 32 pg (25-34); MEAN CORPUSCULAR HGB CONC 31 g/dL (32-36); MEAN CORPUSCULAR VOLUME 101 fL (80-99); PLATELET COUNT 51 10^3/uL (130-400); WHITE BLOOD COUNT 2.2 10^3/uL (4.3-11.0)
[2020-12-09 13:38] LABS: BASOPHILS % (AUTO) 0 % (0-10); EOSINOPHILS % (AUTO) 1 % (0-10); LYMPHOCYTES % (AUTO) 77 % (12-44); MEAN PLATELET VOLUME 11.3 fL (9.0-12.2); MONOCYTES % (AUTO) 21 % (0-12); NEUTROPHILS % (AUTO) 2 % (42-75)
[2020-12-09 13:39] LABS: LYMPHOCYTES # (AUTO) 1.7 X 10^3 (1.0-4.0); MONOCYTES # (AUTO) 0.5 X 10^3 (0.0-1.0); NEUTROPHILS # (AUTO) 0.1 X 10^3 (1.8-7.8)
[2020-12-09 13:59] LABS: CREATININE SERUM 0.62 MG/DL (0.60-1.30); POTASSIUM 2.8 MMOL/L (3.6-5.0)
[2020-12-09 14:00] LABS: CALCIUM 8.5 MG/DL (8.5-10.1)
== END ==
LOC: LAB FS 13:15
PROVIDERS: ATTEND Internal Medicine Hematology & Oncology
DX: C34.2 Malignant neoplasm of middle lobe, bronchus or lung (principal); C79.51 Secondary malignant neoplasm of bone
CPT/HCPCS: 36415; 80048; 85025

== ENCOUNTER → 2020-12-16 | Outpatient (CLI) | payer MEDICAID ==
[2020-12-16 13:35] LABS: HEMATOCRIT 27 % (35-52); HEMOGLOBIN 8.6 g/dL (11.5-16.0); MEAN CORPUSCULAR HEMOGLOBIN 32 pg (25-34); MEAN CORPUSCULAR HGB CONC 32 g/dL (32-36); MEAN CORPUSCULAR VOLUME 103 fL (80-99); MEAN PLATELET VOLUME 10.6 fL (9.0-12.2); PLATELET COUNT 141 10^3/uL (130-400); WHITE BLOOD COUNT 4.2 10^3/uL (4.3-11.0)
[2020-12-16 13:36] LABS: BASOPHILS % (AUTO) 0 % (0-10); EOSINOPHILS % (AUTO) 0 % (0-10); LYMPHOCYTES % (AUTO) 47 % (12-44); MONOCYTES # (AUTO) 0.6 X 10^3 (0.0-1.0); MONOCYTES % (AUTO) 15 % (0-12); NEUTROPHILS # (AUTO) 1.4 X 10^3 (1.8-7.8); NEUTROPHILS % (AUTO) 34 % (42-75)
[2020-12-16 13:59] LABS: POTASSIUM 3.1 MMOL/L (3.6-5.0)
[2020-12-16 14:00] LABS: CALCIUM 9.2 MG/DL (8.5-10.1); CREATININE SERUM 0.73 MG/DL (0.60-1.30)
[2020-12-16 14:34] LABS: BAND NEUTROPHILS 1 %; NEUTROPHILS % (MANUAL) 42 %
[2020-12-16 14:35] LABS: ANISOCYTOSIS SLIGHT; BASOPHILS % (MANUAL) 0 %; EOSINOPHILS % (MANUAL) 0 %; LYMPHOCYTES % (MANUAL) 37 %; METAMYELOCYTES % 3 %; MONOCYTES % (MANUAL) 16 %; MYELOCYTES % 1 %; POIKILOCYTOSIS SLIGHT; POLYCHROMASIA SLIGHT
[2020-12-16 14:36] LABS: TEAR DROP CELLS SLIGHT
== END ==
LOC: LAB FS 13:17
PROVIDERS: ATTEND Internal Medicine Hematology & Oncology
DX: C34.2 Malignant neoplasm of middle lobe, bronchus or lung (principal); C22.9 Malignant neoplasm of liver, not specified as primary or secondary; C79.51 Secondary malignant neoplasm of bone
CPT/HCPCS: 36415; 80048; 85007; 85027

== ENCOUNTER 2020-12-25 10:58 | Outpatient (RCR) | payer MEDICAID ==
[2020-09-30 13:51] LABS: BASOPHILS % (AUTO) 0 % (0-10); EOSINOPHILS % (AUTO) 0 % (0-10); HEMATOCRIT 31 % (35-52); HEMOGLOBIN 10.1 g/dL (11.5-16.0); LYMPHOCYTES # (AUTO) 2.1 10^3/uL (1.0-4.0); LYMPHOCYTES % (AUTO) 23 % (12-44); MEAN CORPUSCULAR HEMOGLOBIN 32 pg (25-34); MEAN CORPUSCULAR HGB CONC 32 g/dL (32-36); MEAN CORPUSCULAR VOLUME 100 fL (80-99); MEAN PLATELET VOLUME 9.4 fL (9.0-12.2); MONOCYTES # (AUTO) 1.1 10^3/uL (0.0-1.0); MONOCYTES % (AUTO) 12 % (0-12); NEUTROPHILS # (AUTO) 5.8 10^3/uL (1.8-7.8); NEUTROPHILS % (AUTO) 64 % (42-75); PLATELET COUNT 265 10^3/uL (130-400); WHITE BLOOD COUNT 9.1 10^3/uL (4.3-11.0)
[2020-09-30 14:11] LABS: ALBUMIN 3.3 GM/DL (3.2-4.5); BILIRUBIN,TOTAL 0.7 MG/DL (0.1-1.0); CALCIUM 8.4 MG/DL (8.5-10.1); CREATININE SERUM 0.66 MG/DL (0.60-1.30); POTASSIUM 3.3 MMOL/L (3.6-5.0); TOTAL PROTEIN 6.9 GM/DL (6.4-8.2)
[2020-09-30 14:48] LABS: MAGNESIUM 1.4 MG/DL (1.6-2.4)
[2020-10-28 10:12] LABS: MEAN CORPUSCULAR VOLUME 102 fL (80-99)
[2020-10-28 10:14] LABS: BASOPHILS % (AUTO) 1 % (0-10); EOSINOPHILS % (AUTO) 0 % (0-10); HEMATOCRIT 27 % (35-52); HEMOGLOBIN 8.6 g/dL (11.5-16.0); LYMPHOCYTES # (AUTO) 1.6 10^3/uL (1.0-4.0); LYMPHOCYTES % (AUTO) 30 % (12-44); MEAN CORPUSCULAR HEMOGLOBIN 32 pg (25-34); MEAN CORPUSCULAR HGB CONC 32 g/dL (32-36); MEAN PLATELET VOLUME 10.9 fL (9.0-12.2); MONOCYTES # (AUTO) 0.6 10^3/uL (0.0-1.0); MONOCYTES % (AUTO) 11 % (0-12); NEUTROPHILS % (AUTO) 56 % (42-75); PLATELET COUNT 116 10^3/uL (130-400); WHITE BLOOD COUNT 5.4 10^3/uL (4.3-11.0)
[2020-10-28 10:32] LABS: ALBUMIN 3.4 GM/DL (3.2-4.5); BILIRUBIN,TOTAL 0.6 MG/DL (0.1-1.0); CALCIUM 8.3 MG/DL (8.5-10.1); CREATININE SERUM 0.66 MG/DL (0.60-1.30); POTASSIUM 2.8 MMOL/L (3.6-5.0)
[2020-10-28 10:38] LABS: MAGNESIUM 1.1 MG/DL (1.6-2.4)
[2020-11-25 10:12] LABS: BASOPHILS % (AUTO) 0 % (0-10); EOSINOPHILS % (AUTO) 0 % (0-10); HEMATOCRIT 28 % (35-52); HEMOGLOBIN 8.4 g/dL (11.5-16.0); LYMPHOCYTES # (AUTO) 1.5 10^3/uL (1.0-4.0); LYMPHOCYTES % (AUTO) 31 % (12-44); MEAN CORPUSCULAR HEMOGLOBIN 32 pg (25-34); MEAN CORPUSCULAR HGB CONC 30 g/dL (32-36); MEAN CORPUSCULAR VOLUME 106 fL (80-99); MEAN PLATELET VOLUME 10.4 fL (9.0-12.2); MONOCYTES # (AUTO) 0.6 10^3/uL (0.0-1.0); MONOCYTES % (AUTO) 13 % (0-12); NEUTROPHILS # (AUTO) 2.7 10^3/uL (1.8-7.8); NEUTROPHILS % (AUTO) 56 % (42-75); PLATELET COUNT 184 10^3/uL (130-400); WHITE BLOOD COUNT 4.9 10^3/uL (4.3-11.0)
[2020-11-25 10:31] LABS: ALBUMIN 3.4 GM/DL (3.2-4.5); BILIRUBIN,TOTAL 0.3 MG/DL (0.1-1.0); CALCIUM 8.7 MG/DL (8.5-10.1); CREATININE SERUM 0.68 MG/DL (0.60-1.30); MAGNESIUM 1.6 MG/DL (1.6-2.4); POTASSIUM 3.6 MMOL/L (3.6-5.0); TOTAL PROTEIN 5.8 GM/DL (6.4-8.2)
[2020-12-23 10:24] LABS: BASOPHILS % (AUTO) 1 % (0-10); EOSINOPHILS % (AUTO) 0 % (0-10); HEMATOCRIT 30 % (35-52); HEMOGLOBIN 9.5 g/dL (11.5-16.0); LYMPHOCYTES # (AUTO) 1.3 10^3/uL (1.0-4.0); LYMPHOCYTES % (AUTO) 20 % (12-44); MEAN CORPUSCULAR HEMOGLOBIN 33 pg (25-34); MEAN CORPUSCULAR HGB CONC 31 g/dL (32-36); MEAN CORPUSCULAR VOLUME 104 fL (80-99); MONOCYTES # (AUTO) 0.9 10^3/uL (0.0-1.0); MONOCYTES % (AUTO) 15 % (0-12); NEUTROPHILS % (AUTO) 63 % (42-75); PLATELET COUNT 195 10^3/uL (130-400); WHITE BLOOD COUNT 6.3 10^3/uL (4.3-11.0)
[2020-12-23 10:41] LABS: ALBUMIN 3.9 GM/DL (3.2-4.5); BILIRUBIN,TOTAL 0.4 MG/DL (0.1-1.0); CALCIUM 9.2 MG/DL (8.5-10.1); CREATININE SERUM 0.72 MG/DL (0.60-1.30); POTASSIUM 3.8 MMOL/L (3.6-5.0); TOTAL PROTEIN 6.6 GM/DL (6.4-8.2)
[~2020-12-25] VITALS: Ht 162.6 cm; Wt 78.5 kg
[~2020-12-25 10:58] MED LIST changes: +CARBOPLATIN IV SCH; +D5W IV SCH; +ETOPOSIDE 170 MG in NORMAL SALINE (CANCER CENTER) 500 ML IV SCH; +ETOPOSIDE 180 MG in NORMAL SALINE (CANCER CENTER) 500 ML IV SCH; +FOSAPREPITANT (CANCER CENTER) 150 MG in NS (IVPB) CANCER CENTER ONLY 150 ML IV SCH; +MAGNESIUM SULFATE IV ONE; +NS IV 1000 ML (CANCER CTR) IV SCH; +POTASSIUM CHL IV ONE; +[UNRECOGNIZED DRUG - OTHER] IV ONE; +[UNRECOGNIZED DRUG - OTHER] IV ONE
== END 2020-12-29 | disposition home or self-care (01) ==
LOC: ONC 10:58
PROVIDERS: ATTEND Internal Medicine Hematology & Oncology
DX: Z51.11 Encounter for antineoplastic chemotherapy (principal); Z45.2 Encounter for adjustment and management of vascular access device; C34.90 Malignant neoplasm of unspecified part of unspecified bronchus or lung; C79.51 Secondary malignant neoplasm of bone; C79.70 Secondary malignant neoplasm of unspecified adrenal gland; C78.7 Secondary malignant neoplasm of liver and intrahepatic bile duct; Z92.21 Personal history of antineoplastic chemotherapy
CPT/HCPCS: 80053; 83615; 83735; 85025; 96367; 96375; 96413; 96417; G0463; 36591; 96368

== ENCOUNTER → 2020-12-30 | Outpatient (CLI) | payer MEDICAID ==
[~2020-12-30] MED LIST changes: -CARBOPLATIN IV SCH; -D5W IV SCH; -ETOPOSIDE 170 MG in NORMAL SALINE (CANCER CENTER) 500 ML IV SCH; -ETOPOSIDE 180 MG in NORMAL SALINE (CANCER CENTER) 500 ML IV SCH; -FOSAPREPITANT (CANCER CENTER) 150 MG in NS (IVPB) CANCER CENTER ONLY 150 ML IV SCH; -MAGNESIUM SULFATE IV ONE; -NS IV 1000 ML (CANCER CTR) IV SCH; -POTASSIUM CHL IV ONE; -[UNRECOGNIZED DRUG - OTHER] IV ONE; -[UNRECOGNIZED DRUG - OTHER] IV ONE
[2020-12-30 13:44] LABS: BASOPHILS % (AUTO) 0 % (0-10); EOSINOPHILS % (AUTO) 0 % (0-10); HEMATOCRIT 26 % (35-52); HEMOGLOBIN 8.8 g/dL (11.5-16.0); LYMPHOCYTES % (AUTO) 41 % (12-44); MEAN CORPUSCULAR HEMOGLOBIN 33 pg (25-34); MEAN CORPUSCULAR HGB CONC 34 g/dL (32-36); MEAN CORPUSCULAR VOLUME 99 fL (80-99); MEAN PLATELET VOLUME 10.1 fL (9.0-12.2); MONOCYTES % (AUTO) 1 % (0-12); NEUTROPHILS % (AUTO) 57 % (42-75); PLATELET COUNT 99 10^3/uL (130-400); WHITE BLOOD COUNT 3.9 10^3/uL (4.3-11.0)
[2020-12-30 13:45] LABS: LYMPHOCYTES # (AUTO) 1.6 X 10^3 (1.0-4.0); NEUTROPHILS # (AUTO) 2.2 X 10^3 (1.8-7.8)
[2020-12-30 13:59] LABS: CALCIUM 9.1 MG/DL (8.5-10.1); CREATININE SERUM 0.64 MG/DL (0.60-1.30); POTASSIUM 3.1 MMOL/L (3.6-5.0)
== END ==
LOC: LAB FS 13:16
PROVIDERS: ATTEND Internal Medicine Hematology & Oncology
DX: C34.2 Malignant neoplasm of middle lobe, bronchus or lung (principal); C79.51 Secondary malignant neoplasm of bone; C22.9 Malignant neoplasm of liver, not specified as primary or secondary
CPT/HCPCS: 36415; 80048; 85025

== ENCOUNTER → 2021-01-06 | Outpatient (CLI) | payer MEDICAID ==
[2021-01-06 13:55] LABS: HEMATOCRIT 24 % (35-52); HEMOGLOBIN 7.8 g/dL (11.5-16.0); MEAN CORPUSCULAR HEMOGLOBIN 32 pg (25-34); MEAN CORPUSCULAR HGB CONC 33 g/dL (32-36); MEAN CORPUSCULAR VOLUME 99 fL (80-99); WHITE BLOOD COUNT 1.4 10^3/uL (4.3-11.0)
[2021-01-06 13:56] LABS: BASOPHILS % (AUTO) 0 % (0-10); EOSINOPHILS % (AUTO) 0 % (0-10); LYMPHOCYTES % (AUTO) 70 % (12-44); MEAN PLATELET VOLUME 12.7 fL (9.0-12.2); MONOCYTES # (AUTO) 0.3 X 10^3 (0.0-1.0); MONOCYTES % (AUTO) 24 % (0-12); NEUTROPHILS # (AUTO) 0.1 X 10^3 (1.8-7.8); NEUTROPHILS % (AUTO) 5 % (42-75); PLATELET COUNT 47 10^3/uL (130-400)
[2021-01-06 14:07] LABS: CALCIUM 9.1 MG/DL (8.5-10.1); CREATININE SERUM 0.72 MG/DL (0.60-1.30); POTASSIUM 3.1 MMOL/L (3.6-5.0)
== END ==
LOC: LAB FS 13:17
PROVIDERS: ATTEND Internal Medicine Hematology & Oncology
DX: C34.2 Malignant neoplasm of middle lobe, bronchus or lung (principal); C79.51 Secondary malignant neoplasm of bone; C22.9 Malignant neoplasm of liver, not specified as primary or secondary
CPT/HCPCS: 36415; 80048; 85025

== ENCOUNTER 2021-02-10 13:55 | Outpatient (RCR) | payer MEDICAID ==
[2021-01-13 14:52] LABS: CALCIUM 9.3 MG/DL (8.5-10.1); CREATININE SERUM 0.72 MG/DL (0.60-1.30); POTASSIUM 3.6 MMOL/L (3.6-5.0)
[2021-01-13 14:53] LABS: BASOPHILS % (AUTO) 0 % (0-10); EOSINOPHILS % (AUTO) 0 % (0-10); HEMATOCRIT 28 % (35-52); LYMPHOCYTES % (AUTO) 56 % (12-44); MEAN CORPUSCULAR HEMOGLOBIN 32 pg (25-34); MEAN CORPUSCULAR HGB CONC 32 g/dL (32-36); MEAN CORPUSCULAR VOLUME 101 fL (80-99); MEAN PLATELET VOLUME 10.9 fL (9.0-12.2); MONOCYTES % (AUTO) 12 % (0-12); NEUTROPHILS # (AUTO) 1.4 X 10^3 (1.8-7.8); NEUTROPHILS % (AUTO) 30 % (42-75); PLATELET COUNT 140 10^3/uL (130-400); WHITE BLOOD COUNT 4.7 10^3/uL (4.3-11.0)
[2021-01-13 14:54] LABS: LYMPHOCYTES # (AUTO) 2.6 X 10^3 (1.0-4.0); MONOCYTES # (AUTO) 0.5 X 10^3 (0.0-1.0)
[2021-01-27 14:28] LABS: BASOPHILS % (AUTO) 0 % (0-10); EOSINOPHILS % (AUTO) 0 % (0-10); HEMATOCRIT 25 % (35-52); HEMOGLOBIN 8.3 g/dL (11.5-16.0); LYMPHOCYTES % (AUTO) 65 % (12-44); MEAN CORPUSCULAR HEMOGLOBIN 33 pg (25-34); MEAN CORPUSCULAR HGB CONC 33 g/dL (32-36); MEAN CORPUSCULAR VOLUME 100 fL (80-99); MEAN PLATELET VOLUME 11.8 fL (9.0-12.2); MONOCYTES % (AUTO) 2 % (0-12); NEUTROPHILS % (AUTO) 33 % (42-75); PLATELET COUNT 71 10^3/uL (130-400); WHITE BLOOD COUNT 3.2 10^3/uL (4.3-11.0)
[2021-01-27 14:29] LABS: LYMPHOCYTES # (AUTO) 2.1 X 10^3 (1.0-4.0); MONOCYTES # (AUTO) 0.1 X 10^3 (0.0-1.0)
[2021-01-27 14:32] LABS: CALCIUM 9.1 MG/DL (8.5-10.1); CREATININE SERUM 0.66 MG/DL (0.60-1.30); POTASSIUM 3.2 MMOL/L (3.6-5.0)
[2021-02-03 13:53] LABS: WHITE BLOOD COUNT 3.4 10^3/uL (4.3-11.0)
[2021-02-03 13:54] LABS: BASOPHILS % (AUTO) 0 % (0-10); EOSINOPHILS % (AUTO) 0 % (0-10); HEMATOCRIT 27 % (35-52); LYMPHOCYTES % (AUTO) 38 % (12-44); MEAN CORPUSCULAR HEMOGLOBIN 33 pg (25-34); MEAN CORPUSCULAR HGB CONC 34 g/dL (32-36); MEAN CORPUSCULAR VOLUME 98 fL (80-99); MEAN PLATELET VOLUME 12.1 fL (9.0-12.2); NEUTROPHILS % (AUTO) 33 % (42-75); PLATELET COUNT 67 10^3/uL (130-400)
[2021-02-03 13:55] LABS: LYMPHOCYTES # (AUTO) 1.3 X 10^3 (1.0-4.0); MONOCYTES % (AUTO) 29 % (0-12); NEUTROPHILS # (AUTO) 1.1 X 10^3 (1.8-7.8)
[2021-02-03 14:23] LABS: CALCIUM 9.1 MG/DL (8.5-10.1); CREATININE SERUM 0.83 MG/DL (0.60-1.30); POTASSIUM 3.1 MMOL/L (3.6-5.0)
[~2021-02-10 13:55] MED LIST changes: +CYCL10TA25 PO; -CYCL10TA9 PO
[2021-02-10 15:03] LABS: CALCIUM 9.3 MG/DL (8.5-10.1); CREATININE SERUM 0.75 MG/DL (0.60-1.30); POTASSIUM 3.3 MMOL/L (3.6-5.0)
[2021-02-10 15:05] LABS: HEMATOCRIT 27 % (35-52); HEMOGLOBIN 8.6 g/dL (11.5-16.0); MEAN CORPUSCULAR HEMOGLOBIN 32 pg (25-34); MEAN CORPUSCULAR HGB CONC 32 g/dL (32-36); MEAN CORPUSCULAR VOLUME 100 fL (80-99); MEAN PLATELET VOLUME 11.6 fL (9.0-12.2); PLATELET COUNT 137 10^3/uL (130-400); WHITE BLOOD COUNT 5.2 10^3/uL (4.3-11.0)
[2021-02-10 15:07] LABS: BASOPHILS % (AUTO) 0 % (0-10); EOSINOPHILS % (AUTO) 0 % (0-10); LYMPHOCYTES # (AUTO) 2.1 X 10^3 (1.0-4.0); LYMPHOCYTES % (AUTO) 42 % (12-44); MONOCYTES # (AUTO) 0.5 X 10^3 (0.0-1.0); MONOCYTES % (AUTO) 10 % (0-12); NEUTROPHILS # (AUTO) 2.3 X 10^3 (1.8-7.8); NEUTROPHILS % (AUTO) 44 % (42-75)
== END 2021-02-26 | disposition home or self-care (01) ==
LOC: LAB FS 13:55
PROVIDERS: ATTEND Internal Medicine Hematology & Oncology
DX: C34.2 Malignant neoplasm of middle lobe, bronchus or lung (principal); C22.9 Malignant neoplasm of liver, not specified as primary or secondary; C79.51 Secondary malignant neoplasm of bone
CPT/HCPCS: 36415; 80048; 85025

== ENCOUNTER 2021-02-18 10:52 | Outpatient (RCR) | payer MEDICAID ==
[2021-01-18 09:57] LABS: BASOPHILS % (AUTO) 0 % (0-10); EOSINOPHILS % (AUTO) 0 % (0-10); HEMATOCRIT 30 % (35-52); HEMOGLOBIN 9.3 g/dL (11.5-16.0); LYMPHOCYTES % (AUTO) 43 % (12-44); MEAN CORPUSCULAR HEMOGLOBIN 33 pg (25-34); MEAN CORPUSCULAR HGB CONC 32 g/dL (32-36); MEAN CORPUSCULAR VOLUME 104 fL (80-99); MEAN PLATELET VOLUME 10.4 fL (9.0-12.2); MONOCYTES # (AUTO) 0.6 10^3/uL (0.0-1.0); MONOCYTES % (AUTO) 13 % (0-12); NEUTROPHILS # (AUTO) 2.1 10^3/uL (1.8-7.8); NEUTROPHILS % (AUTO) 44 % (42-75); PLATELET COUNT 194 10^3/uL (130-400); WHITE BLOOD COUNT 4.7 10^3/uL (4.3-11.0)
[2021-01-18 10:17] LABS: ALBUMIN 3.7 GM/DL (3.2-4.5); BILIRUBIN,TOTAL 0.4 MG/DL (0.1-1.0); CREATININE SERUM 0.7 MG/DL (0.60-1.30); POTASSIUM 3.8 MMOL/L (3.6-5.0); TOTAL PROTEIN 6.3 GM/DL (6.4-8.2)
[2021-01-18 10:43] LABS: MAGNESIUM 1.4 MG/DL (1.6-2.4)
[2021-02-16 11:17] LABS: BASOPHILS % (AUTO) 0 % (0-10); EOSINOPHILS % (AUTO) 0 % (0-10); HEMATOCRIT 32 % (35-52); HEMOGLOBIN 9.9 g/dL (11.5-16.0); LYMPHOCYTES % (AUTO) 30 % (12-44); MEAN CORPUSCULAR HEMOGLOBIN 33 pg (25-34); MEAN CORPUSCULAR HGB CONC 31 g/dL (32-36); MEAN CORPUSCULAR VOLUME 104 fL (80-99); MEAN PLATELET VOLUME 11.1 fL (9.0-12.2); MONOCYTES # (AUTO) 0.6 10^3/uL (0.0-1.0); MONOCYTES % (AUTO) 9 % (0-12); NEUTROPHILS # (AUTO) 4.2 10^3/uL (1.8-7.8); NEUTROPHILS % (AUTO) 61 % (42-75); PLATELET COUNT 187 10^3/uL (130-400); WHITE BLOOD COUNT 6.9 10^3/uL (4.3-11.0)
[2021-02-16 11:39] LABS: BILIRUBIN,TOTAL 0.4 MG/DL (0.1-1.0); CALCIUM 9.8 MG/DL (8.5-10.1); CREATININE SERUM 0.78 MG/DL (0.60-1.30); TOTAL PROTEIN 7.2 GM/DL (6.4-8.2)
[~2021-02-18 10:52] MED LIST changes: +CARBOPLATIN IV SCH; +D5W IV SCH; +ETOPOSIDE 150 MG in NORMAL SALINE (CANCER CENTER) 500 ML IV SCH; +ETOPOSIDE 170 MG in NORMAL SALINE (CANCER CENTER) 500 ML IV SCH; +FOSAPREPITANT (CANCER CENTER) 150 MG in NS (IVPB) CANCER CENTER ONLY 150 ML IV SCH; +NS IV 1000 ML (CANCER CTR) IV SCH
== END 2021-02-26 | disposition home or self-care (01) ==
LOC: ONC 10:52
PROVIDERS: ATTEND Internal Medicine Hematology & Oncology
DX: Z51.11 Encounter for antineoplastic chemotherapy (principal); Z45.2 Encounter for adjustment and management of vascular access device; C34.90 Malignant neoplasm of unspecified part of unspecified bronchus or lung; C79.51 Secondary malignant neoplasm of bone; C79.70 Secondary malignant neoplasm of unspecified adrenal gland; C78.7 Secondary malignant neoplasm of liver and intrahepatic bile duct; Z92.21 Personal history of antineoplastic chemotherapy
CPT/HCPCS: 80053; 83615; 83735; 85025; 96367; 96375; 96413; 96417; G0463; 36591

== ENCOUNTER 2021-03-03 14:39 | Outpatient (RCR) | payer MEDICAID ==
[~2021-03-03 14:39] MED LIST changes: -CARBOPLATIN IV SCH; -D5W IV SCH; -ETOPOSIDE 150 MG in NORMAL SALINE (CANCER CENTER) 500 ML IV SCH; -ETOPOSIDE 170 MG in NORMAL SALINE (CANCER CENTER) 500 ML IV SCH; -FOSAPREPITANT (CANCER CENTER) 150 MG in NS (IVPB) CANCER CENTER ONLY 150 ML IV SCH; -NS IV 1000 ML (CANCER CTR) IV SCH
[2021-03-03 15:52] LABS: POTASSIUM 3.6 MMOL/L (3.6-5.0)
[2021-03-03 15:53] LABS: CALCIUM 9.2 MG/DL (8.5-10.1); CREATININE SERUM 0.7 MG/DL (0.60-1.30)
[2021-03-03 16:05] LABS: HEMATOCRIT 27 % (35-52); HEMOGLOBIN 8.7 g/dL (11.5-16.0); MEAN CORPUSCULAR HEMOGLOBIN 33 pg (25-34); MEAN CORPUSCULAR HGB CONC 32 g/dL (32-36); MEAN CORPUSCULAR VOLUME 104 fL (80-99); PLATELET COUNT 63 10^3/uL (130-400); WHITE BLOOD COUNT 1.9 10^3/uL (4.3-11.0)
[2021-03-03 16:06] LABS: BASOPHILS % (AUTO) 0 % (0-10); EOSINOPHILS % (AUTO) 1 % (0-10); LYMPHOCYTES # (AUTO) 1.5 X 10^3 (1.0-4.0); LYMPHOCYTES % (AUTO) 79 % (12-44); MEAN PLATELET VOLUME 13.1 fL (9.0-12.2); MONOCYTES # (AUTO) 0.3 X 10^3 (0.0-1.0); MONOCYTES % (AUTO) 16 % (0-12); NEUTROPHILS # (AUTO) 0.1 X 10^3 (1.8-7.8); NEUTROPHILS % (AUTO) 5 % (42-75)
== END 2021-03-29 | disposition home or self-care (01) ==
LOC: LAB FS 14:39
PROVIDERS: ATTEND Internal Medicine Hematology & Oncology
DX: C34.2 Malignant neoplasm of middle lobe, bronchus or lung (principal); C22.9 Malignant neoplasm of liver, not specified as primary or secondary; C79.51 Secondary malignant neoplasm of bone
CPT/HCPCS: 36415; 80048; 85025

== ENCOUNTER → 2021-03-10 | Outpatient (CLI) | payer MEDICAID ==
[2021-03-10 14:37] LABS: HEMOGLOBIN 9.6 g/dL (11.5-16.0); MEAN CORPUSCULAR HEMOGLOBIN 33 pg (25-34); WHITE BLOOD COUNT 4.7 10^3/uL (4.3-11.0)
[2021-03-10 14:38] LABS: BASOPHILS % (AUTO) 0 % (0-10); EOSINOPHILS % (AUTO) 0 % (0-10); HEMATOCRIT 31 % (35-52); LYMPHOCYTES # (AUTO) 2.1 X 10^3 (1.0-4.0); LYMPHOCYTES % (AUTO) 45 % (12-44); MEAN CORPUSCULAR HGB CONC 32 g/dL (32-36); MEAN CORPUSCULAR VOLUME 105 fL (80-99); MONOCYTES # (AUTO) 0.6 X 10^3 (0.0-1.0); MONOCYTES % (AUTO) 12 % (0-12); NEUTROPHILS # (AUTO) 1.9 X 10^3 (1.8-7.8); NEUTROPHILS % (AUTO) 41 % (42-75); PLATELET COUNT 144 10^3/uL (130-400)
[2021-03-11 10:19] LABS: CALCIUM 9.7 MG/DL (8.5-10.1); CREATININE SERUM 0.82 MG/DL (0.60-1.30); POTASSIUM 3.5 MMOL/L (3.6-5.0)
== END ==
LOC: LAB FS 13:47
PROVIDERS: ATTEND Internal Medicine Hematology & Oncology
DX: Z51.11 Encounter for antineoplastic chemotherapy (principal); C34.2 Malignant neoplasm of middle lobe, bronchus or lung; C22.9 Malignant neoplasm of liver, not specified as primary or secondary; C79.51 Secondary malignant neoplasm of bone
CPT/HCPCS: 36415; 80048; 85025

== ENCOUNTER → 2021-03-15 | Outpatient (CLI) | payer MEDICAID ==
[~2021-03-15] MED LIST changes: +BARIUM SUSPENSION 2.1% (VANILLA SILQ) 450 ML PO ONE; +CATHETER FLUSH 10 ML SYR IV PRN; +HOLD METFORMIN - RECEIVED CONTRAST 20 ML VIAL IV SCH; +IOHEXOL 350 MG/ML 100 ML (OMNIPAQUE 350) VIAL IV ONE; +NS 100 ML (IVPB) BAG IV ONE
--- NOTE | 2021-03-15 14:36 | Diagnostic Imaging Report ---
PROCEDURE: CT chest with contrast, CT abdomen with and without contrast. TECHNIQUE: Precontrast acquisitions were acquired through the abdomen. Multiple contiguous axial images were obtained through the chest and abdomen after administration of intravenous contrast. Auto Exposure Controls were utilized during the CT exam to meet ALARA standards for radiation dose reduction. INDICATION: Lung cancer. COMPARISON: Exam is compared with CT chest and abdomen 11/23/2020. FINDINGS: CHEST: No lung mass or suspicious pulmonary nodule. No findings of pneumonia or edema. No pathological hilar, mediastinal, or axillary lymph nodes at follow-up. No pleural effusion. There is trace pericardial fluid versus pericardial thickening, unchanged. Multiple patchy lower cervical, thoracic, and upper lumbar vertebral body sclerotic lesions are unchanged. No pathological fracture. No findings of progressive bony metastases. ABDOMEN: Tiny 5 mm low-density nodule in the liver at the dome anteriorly near the junction of the left and right lobes is unchanged. Subtle 7 mm area of hyperdensity in the right hepatic lobe laterally on the delayed images, previously measuring 12 mm. No new liver lesion or adverse development. The additional hyperdense foci seen at the delayed images are no longer found. Background hepatic steatosis is less apparent. Nonfocal spleen is normal in size. The adrenals are negative. The pancreas is negative. The gallbladder is surgically absent. No bile duct dilatation. There is no ascites. No omental infiltration, and no abdominal mesenteric or retroperitoneal lymphadenopathy. Scattered patchy sclerotic bony lesions are unchanged. No pathological fracture. IMPRESSION: CHEST: Stable sclerotic bony metastases. No findings of residual or recurrent soft tissue metastatic disease. No acute finding. ABDOMEN: Findings suggest improvements in hepatic metastatic disease with stable mild bony metastases and no adverse development. Dictated by: Dictated on workstation # [id number]
--- NOTE | 2021-03-15 14:48 | Diagnostic Imaging Report ---
Indication: Lung cancer. Compared with whole-body bone scan dated 11/23/2020. Patient received 25.2 mCi Tc 99 MDP and after 3 hours whole-body planar imaging performed. Findings: There is no suspicious uptake in the axial or appendicular skeleton. There was soft tissue uptake and excretion by urinary tracts stable, no suspicious finding. Impression: No evidence for bony metastatic disease. Dictated by: Dictated on workstation # [id number]
== END ==
LOC: CARD 11:04
PROVIDERS: ATTEND Internal Medicine Hematology & Oncology
DX: C34.2 Malignant neoplasm of middle lobe, bronchus or lung (principal); C79.51 Secondary malignant neoplasm of bone; C78.7 Secondary malignant neoplasm of liver and intrahepatic bile duct
CPT/HCPCS: 71260; 74170; 78306; A9503

== ENCOUNTER → 2021-04-14 | Outpatient (CLI) | payer MEDICAID ==
[~2021-04-14] MED LIST changes: -BARIUM SUSPENSION 2.1% (VANILLA SILQ) 450 ML PO ONE; -CATHETER FLUSH 10 ML SYR IV PRN; -HOLD METFORMIN - RECEIVED CONTRAST 20 ML VIAL IV SCH; -IOHEXOL 350 MG/ML 100 ML (OMNIPAQUE 350) VIAL IV ONE; -NS 100 ML (IVPB) BAG IV ONE
[2021-04-14 10:57] LABS: BASOPHILS % (AUTO) 0 % (0-10); EOSINOPHILS % (AUTO) 1 % (0-10); HEMATOCRIT 28 % (35-52); HEMOGLOBIN 9.3 g/dL (11.5-16.0); LYMPHOCYTES # (AUTO) 2.2 10^3/uL (1.0-4.0); LYMPHOCYTES % (AUTO) 77 % (12-44); MEAN CORPUSCULAR HEMOGLOBIN 33 pg (25-34); MEAN CORPUSCULAR HGB CONC 33 g/dL (32-36); MEAN CORPUSCULAR VOLUME 100 fL (80-99); MONOCYTES # (AUTO) 0.2 10^3/uL (0.0-1.0); MONOCYTES % (AUTO) 8 % (0-12); NEUTROPHILS # (AUTO) 0.4 10^3/uL (1.8-7.8); NEUTROPHILS % (AUTO) 14 % (42-75); WHITE BLOOD COUNT 2.9 10^3/uL (4.3-11.0)
[2021-04-14 11:15] LABS: CALCIUM 9.5 MG/DL (8.5-10.1); CREATININE SERUM 0.69 MG/DL (0.60-1.30); POTASSIUM 3.7 MMOL/L (3.6-5.0)
[2021-04-14 11:19] LABS: PLATELET COUNT 21 10^3/uL (130-400)
== END ==
LOC: LAB FS 10:35
PROVIDERS: ATTEND Internal Medicine Hematology & Oncology
DX: C34.2 Malignant neoplasm of middle lobe, bronchus or lung (principal)
CPT/HCPCS: 36415; 80048; 85025

== ENCOUNTER 2021-04-19 13:42 | Outpatient (RCR) | payer MEDICAID ==
[2021-04-12 14:28] LABS: BASOPHILS % (AUTO) 0 % (0-10); EOSINOPHILS % (AUTO) 1 % (0-10); HEMATOCRIT 26 % (35-52); HEMOGLOBIN 8.6 g/dL (11.5-16.0); LYMPHOCYTES # (AUTO) 1.8 10^3/uL (1.0-4.0); LYMPHOCYTES % (AUTO) 84 % (12-44); MEAN CORPUSCULAR HEMOGLOBIN 33 pg (25-34); MEAN CORPUSCULAR HGB CONC 33 g/dL (32-36); MEAN CORPUSCULAR VOLUME 100 fL (80-99); MONOCYTES # (AUTO) 0.1 10^3/uL (0.0-1.0); MONOCYTES % (AUTO) 3 % (0-12); NEUTROPHILS # (AUTO) 0.3 10^3/uL (1.8-7.8); NEUTROPHILS % (AUTO) 13 % (42-75); WHITE BLOOD COUNT 2.1 10^3/uL (4.3-11.0)
[2021-04-12 15:28] LABS: CALCIUM 8.9 MG/DL (8.5-10.1); CREATININE SERUM 0.68 MG/DL (0.60-1.30); POTASSIUM 3.3 MMOL/L (3.6-5.0)
[2021-04-12 15:40] LABS: PLATELET COUNT 17 10^3/uL (130-400)
[2021-04-19 14:03] LABS: BASOPHILS % (AUTO) 0 % (0-10); EOSINOPHILS % (AUTO) 0 % (0-10); HEMATOCRIT 28 % (35-52); HEMOGLOBIN 9.1 g/dL (11.5-16.0); LYMPHOCYTES # (AUTO) 1.5 10^3/uL (1.0-4.0); LYMPHOCYTES % (AUTO) 51 % (12-44); MEAN CORPUSCULAR HEMOGLOBIN 33 pg (25-34); MEAN CORPUSCULAR HGB CONC 33 g/dL (32-36); MEAN CORPUSCULAR VOLUME 100 fL (80-99); MEAN PLATELET VOLUME 11.7 fL (9.0-12.2); MONOCYTES # (AUTO) 0.6 10^3/uL (0.0-1.0); MONOCYTES % (AUTO) 18 % (0-12); NEUTROPHILS # (AUTO) 0.8 10^3/uL (1.8-7.8); NEUTROPHILS % (AUTO) 28 % (42-75); PLATELET COUNT 82 10^3/uL (130-400)
[2021-04-19 14:32] LABS: CALCIUM 9.3 MG/DL (8.5-10.1); CREATININE SERUM 0.76 MG/DL (0.60-1.30); POTASSIUM 3.4 MMOL/L (3.6-5.0)
== END 2021-04-26 | disposition home or self-care (01) ==
LOC: LAB FS 13:42
PROVIDERS: ATTEND Nurse Practitioner Adult Health
DX: C34.2 Malignant neoplasm of middle lobe, bronchus or lung (principal); C78.7 Secondary malignant neoplasm of liver and intrahepatic bile duct; C79.51 Secondary malignant neoplasm of bone; C79.31 Secondary malignant neoplasm of brain
CPT/HCPCS: 36415; 80048; 85025

== ENCOUNTER 2021-05-18 14:22 | Outpatient (RCR) | payer MEDICAID ==
[2021-05-03 14:58] LABS: HEMATOCRIT 29 % (35-52); HEMOGLOBIN 9.6 g/dL (11.5-16.0); MEAN CORPUSCULAR HEMOGLOBIN 33 pg (25-34); MEAN CORPUSCULAR HGB CONC 33 g/dL (32-36); MEAN CORPUSCULAR VOLUME 99 fL (80-99); MEAN PLATELET VOLUME 10.1 fL (9.0-12.2); PLATELET COUNT 131 10^3/uL (130-400); WHITE BLOOD COUNT 6.1 10^3/uL (4.3-11.0)
[2021-05-03 15:42] LABS: CREATININE SERUM 0.81 MG/DL (0.60-1.30); POTASSIUM 3.6 MMOL/L (3.6-5.0)
[2021-05-03 15:43] LABS: CALCIUM 8.9 MG/DL (8.5-10.1)
[2021-05-10 10:04] LABS: BASOPHILS % (AUTO) 0 % (0-10); EOSINOPHILS % (AUTO) 0 % (0-10); HEMATOCRIT 24 % (35-52); HEMOGLOBIN 7.9 g/dL (11.5-16.0); LYMPHOCYTES # (AUTO) 1.4 10^3/uL (1.0-4.0); LYMPHOCYTES % (AUTO) 59 % (12-44); MEAN CORPUSCULAR HEMOGLOBIN 33 pg (25-34); MEAN CORPUSCULAR HGB CONC 33 g/dL (32-36); MEAN CORPUSCULAR VOLUME 101 fL (80-99); MEAN PLATELET VOLUME 12.1 fL (9.0-12.2); MONOCYTES # (AUTO) 0.2 10^3/uL (0.0-1.0); MONOCYTES % (AUTO) 8 % (0-12); NEUTROPHILS # (AUTO) 0.8 10^3/uL (1.8-7.8); NEUTROPHILS % (AUTO) 32 % (42-75); WHITE BLOOD COUNT 2.4 10^3/uL (4.3-11.0)
[2021-05-10 10:07] LABS: PLATELET COUNT 38 10^3/uL (130-400)
[2021-05-10 10:15] LABS: POTASSIUM 3.2 MMOL/L (3.6-5.0)
[2021-05-10 10:17] LABS: CALCIUM 9.1 MG/DL (8.5-10.1)
[2021-05-10 10:21] LABS: CREATININE SERUM 0.68 MG/DL (0.60-1.30)
[2021-05-18 14:34] LABS: BASOPHILS % (AUTO) 0 % (0-10); EOSINOPHILS % (AUTO) 1 % (0-10); HEMATOCRIT 27 % (35-52); HEMOGLOBIN 8.5 g/dL (11.5-16.0); LYMPHOCYTES # (AUTO) 1.9 10^3/uL (1.0-4.0); LYMPHOCYTES % (AUTO) 51 % (12-44); MEAN CORPUSCULAR HEMOGLOBIN 33 pg (25-34); MEAN CORPUSCULAR HGB CONC 32 g/dL (32-36); MEAN CORPUSCULAR VOLUME 104 fL (80-99); MEAN PLATELET VOLUME 10.2 fL (9.0-12.2); MONOCYTES # (AUTO) 0.5 10^3/uL (0.0-1.0); MONOCYTES % (AUTO) 15 % (0-12); NEUTROPHILS # (AUTO) 1.2 10^3/uL (1.8-7.8); NEUTROPHILS % (AUTO) 33 % (42-75); PLATELET COUNT 147 10^3/uL (130-400); WHITE BLOOD COUNT 3.7 10^3/uL (4.3-11.0)
[2021-05-18 15:01] LABS: CREATININE SERUM 0.72 MG/DL (0.60-1.30); POTASSIUM 3.4 MMOL/L (3.6-5.0)
== END 2021-05-27 | disposition home or self-care (01) ==
LOC: LAB FS 14:22
PROVIDERS: ATTEND Internal Medicine Hematology & Oncology
DX: C34.2 Malignant neoplasm of middle lobe, bronchus or lung (principal)
CPT/HCPCS: 36415; 80048; 85025; 85027

== ENCOUNTER → 2021-06-15 | Outpatient (CLI) | payer MEDICAID ==
--- NOTE | 2021-06-15 16:01 | Diagnostic Imaging Report ---
INDICATION: Lung carcinoma. TECHNIQUE: The patient was administered 24.4 mCi of technetium 99m MDP intravenously and whole-body imaging was performed after a 3 hour delay. COMPARISON: Correlation is made with the prior bone scan from 03/15/2021. FINDINGS: There is normal uptake of activity by the axial and appendicular skeleton. There is uptake by both kidneys with excretion into the urinary bladder. No suspicious uptake is identified. IMPRESSION: Continued unremarkable whole body bone scan. There is no scintigraphic evidence of osseous metastatic disease. Dictated by: Dictated on workstation # [id number]
== END ==
LOC: CARD 12:16
PROVIDERS: ATTEND Nurse Practitioner Adult Health
DX: C34.2 Malignant neoplasm of middle lobe, bronchus or lung (principal); C78.7 Secondary malignant neoplasm of liver and intrahepatic bile duct
CPT/HCPCS: 78306; A9503

== ENCOUNTER → 2021-07-01 | Outpatient (CLI) | payer MEDICAID ==
[2021-07-01 14:31] LABS: BASOPHILS % (AUTO) 0 % (0-10); EOSINOPHILS % (AUTO) 0 % (0-10); HEMATOCRIT 28 % (35-52); HEMOGLOBIN 9.3 g/dL (11.5-16.0); LYMPHOCYTES # (AUTO) 2.4 10^3/uL (1.0-4.0); LYMPHOCYTES % (AUTO) 41 % (12-44); MEAN CORPUSCULAR HEMOGLOBIN 31 pg (25-34); MEAN CORPUSCULAR HGB CONC 33 g/dL (32-36); MEAN CORPUSCULAR VOLUME 95 fL (80-99); MEAN PLATELET VOLUME 9.7 fL (9.0-12.2); MONOCYTES # (AUTO) 0.2 10^3/uL (0.0-1.0); MONOCYTES % (AUTO) 4 % (0-12); NEUTROPHILS # (AUTO) 3.3 10^3/uL (1.8-7.8); NEUTROPHILS % (AUTO) 55 % (42-75); PLATELET COUNT 96 10^3/uL (130-400); WHITE BLOOD COUNT 5.9 10^3/uL (4.3-11.0)
[2021-07-01 14:57] LABS: CREATININE SERUM 0.75 MG/DL (0.60-1.30); POTASSIUM 3.7 MMOL/L (3.6-5.0)
[2021-07-01 14:58] LABS: CALCIUM 8.9 MG/DL (8.5-10.1)
== END ==
LOC: LAB FS 14:08
PROVIDERS: ATTEND Internal Medicine Hematology & Oncology
DX: C34.2 Malignant neoplasm of middle lobe, bronchus or lung (principal)
CPT/HCPCS: 36415; 80048; 85025

== ENCOUNTER 2021-07-05 11:34 | Outpatient (RCR) | payer MEDICAID ==
[2021-07-05 12:07] LABS: BASOPHILS % (AUTO) 0 % (0-10); EOSINOPHILS % (AUTO) 1 % (0-10); HEMATOCRIT 27 % (35-52); HEMOGLOBIN 8.6 g/dL (11.5-16.0); LYMPHOCYTES # (AUTO) 1.8 10^3/uL (1.0-4.0); LYMPHOCYTES % (AUTO) 48 % (12-44); MEAN CORPUSCULAR HEMOGLOBIN 31 pg (25-34); MEAN CORPUSCULAR HGB CONC 32 g/dL (32-36); MEAN CORPUSCULAR VOLUME 98 fL (80-99); MEAN PLATELET VOLUME 11.5 fL (9.0-12.2); MONOCYTES # (AUTO) 0.2 10^3/uL (0.0-1.0); MONOCYTES % (AUTO) 6 % (0-12); NEUTROPHILS # (AUTO) 1.7 10^3/uL (1.8-7.8); NEUTROPHILS % (AUTO) 45 % (42-75); PLATELET COUNT 56 10^3/uL (130-400); WHITE BLOOD COUNT 3.8 10^3/uL (4.3-11.0)
[2021-07-05 13:05] LABS: CALCIUM 9.1 MG/DL (8.5-10.1); CREATININE SERUM 0.68 MG/DL (0.60-1.30); POTASSIUM 3.7 MMOL/L (3.6-5.0)
== END 2021-07-27 | disposition home or self-care (01) ==
LOC: LAB FS 11:34
PROVIDERS: ATTEND Nurse Practitioner Adult Health
DX: C34.2 Malignant neoplasm of middle lobe, bronchus or lung (principal)
CPT/HCPCS: 36415; 80048; 85025

== ENCOUNTER 2021-07-12 14:12 | Outpatient (RCR) | payer MEDICAID ==
[2021-07-12 14:30] LABS: BASOPHILS % (AUTO) 1 % (0-10); EOSINOPHILS # (AUTO) 0.1 10^3/uL (0.0-0.3); EOSINOPHILS % (AUTO) 2 % (0-10); HEMATOCRIT 29 % (35-52); HEMOGLOBIN 9.2 g/dL (11.5-16.0); LYMPHOCYTES # (AUTO) 1.7 10^3/uL (1.0-4.0); LYMPHOCYTES % (AUTO) 50 % (12-44); MEAN CORPUSCULAR HEMOGLOBIN 31 pg (25-34); MEAN CORPUSCULAR HGB CONC 31 g/dL (32-36); MEAN CORPUSCULAR VOLUME 98 fL (80-99); MEAN PLATELET VOLUME 10.8 fL (9.0-12.2); MONOCYTES # (AUTO) 0.4 10^3/uL (0.0-1.0); MONOCYTES % (AUTO) 12 % (0-12); NEUTROPHILS # (AUTO) 1.2 10^3/uL (1.8-7.8); NEUTROPHILS % (AUTO) 35 % (42-75); PLATELET COUNT 124 10^3/uL (130-400); WHITE BLOOD COUNT 3.4 10^3/uL (4.3-11.0)
[2021-07-12 14:54] LABS: CREATININE SERUM 0.73 MG/DL (0.60-1.30)
== END 2021-07-27 | disposition home or self-care (01) ==
LOC: LAB FS 14:12
PROVIDERS: ATTEND Nurse Practitioner Adult Health
DX: C34.2 Malignant neoplasm of middle lobe, bronchus or lung (principal); C78.7 Secondary malignant neoplasm of liver and intrahepatic bile duct; C79.51 Secondary malignant neoplasm of bone; C79.70 Secondary malignant neoplasm of unspecified adrenal gland
CPT/HCPCS: 36415; 80048; 85025

== ENCOUNTER → 2021-07-28 | Outpatient (CLI) | payer MEDICAID ==
[2021-07-28 12:25] LABS: BASOPHILS % (AUTO) 0 % (0-10); EOSINOPHILS % (AUTO) 0 % (0-10); HEMATOCRIT 28 % (35-52); HEMOGLOBIN 9.2 g/dL (11.5-16.0); LYMPHOCYTES # (AUTO) 2.3 10^3/uL (1.0-4.0); LYMPHOCYTES % (AUTO) 39 % (12-44); MEAN CORPUSCULAR HEMOGLOBIN 31 pg (25-34); MEAN CORPUSCULAR HGB CONC 33 g/dL (32-36); MEAN CORPUSCULAR VOLUME 94 fL (80-99); MEAN PLATELET VOLUME 9.2 fL (9.0-12.2); MONOCYTES # (AUTO) 0.2 10^3/uL (0.0-1.0); MONOCYTES % (AUTO) 3 % (0-12); NEUTROPHILS # (AUTO) 3.2 10^3/uL (1.8-7.8); NEUTROPHILS % (AUTO) 56 % (42-75); PLATELET COUNT 89 10^3/uL (130-400); WHITE BLOOD COUNT 5.7 10^3/uL (4.3-11.0)
[2021-07-28 13:39] LABS: CALCIUM 9.1 MG/DL (8.5-10.1); CREATININE SERUM 0.68 MG/DL (0.60-1.30); POTASSIUM 3.8 MMOL/L (3.6-5.0)
== END ==
LOC: LAB FS 12:05
PROVIDERS: ATTEND Nurse Practitioner Adult Health
DX: Z51.11 Encounter for antineoplastic chemotherapy (principal)
CPT/HCPCS: 36415; 80048; 85025

== ENCOUNTER 2021-08-02 12:57 | Outpatient (RCR) | payer MEDICAID ==
[2021-08-02 13:10] LABS: BASOPHILS % (AUTO) 0 % (0-10); EOSINOPHILS % (AUTO) 1 % (0-10); HEMATOCRIT 28 % (35-52); LYMPHOCYTES # (AUTO) 1.9 10^3/uL (1.0-4.0); LYMPHOCYTES % (AUTO) 50 % (12-44); MEAN CORPUSCULAR HEMOGLOBIN 31 pg (25-34); MEAN CORPUSCULAR HGB CONC 32 g/dL (32-36); MEAN CORPUSCULAR VOLUME 97 fL (80-99); MONOCYTES # (AUTO) 0.2 10^3/uL (0.0-1.0); MONOCYTES % (AUTO) 5 % (0-12); NEUTROPHILS # (AUTO) 1.6 10^3/uL (1.8-7.8); NEUTROPHILS % (AUTO) 44 % (42-75); PLATELET COUNT 52 10^3/uL (130-400); WHITE BLOOD COUNT 3.7 10^3/uL (4.3-11.0)
[2021-08-02 13:36] LABS: CALCIUM 9.1 MG/DL (8.5-10.1); CREATININE SERUM 0.73 MG/DL (0.60-1.30); POTASSIUM 3.7 MMOL/L (3.6-5.0)
== END 2021-08-26 | disposition home or self-care (01) ==
LOC: LAB FS 12:57
PROVIDERS: ATTEND Nurse Practitioner Adult Health
DX: Z01.89 Encounter for other specified special examinations (principal)
CPT/HCPCS: 36415; 80048; 85025

== ENCOUNTER 2021-08-09 14:54 | Outpatient (RCR) | payer MEDICAID ==
[2021-08-09 15:19] LABS: BASOPHILS % (AUTO) 0 % (0-10); EOSINOPHILS # (AUTO) 0.1 10^3/uL (0.0-0.3); EOSINOPHILS % (AUTO) 2 % (0-10); HEMATOCRIT 28 % (35-52); LYMPHOCYTES # (AUTO) 1.7 10^3/uL (1.0-4.0); LYMPHOCYTES % (AUTO) 55 % (12-44); MEAN CORPUSCULAR HEMOGLOBIN 31 pg (25-34); MEAN CORPUSCULAR HGB CONC 32 g/dL (32-36); MEAN CORPUSCULAR VOLUME 97 fL (80-99); MONOCYTES # (AUTO) 0.4 10^3/uL (0.0-1.0); MONOCYTES % (AUTO) 13 % (0-12); NEUTROPHILS # (AUTO) 0.9 10^3/uL (1.8-7.8); NEUTROPHILS % (AUTO) 30 % (42-75); PLATELET COUNT 113 10^3/uL (130-400); WHITE BLOOD COUNT 3.1 10^3/uL (4.3-11.0)
[2021-08-09 15:42] LABS: CALCIUM 9.2 MG/DL (8.5-10.1); CREATININE SERUM 0.81 MG/DL (0.60-1.30); POTASSIUM 3.6 MMOL/L (3.6-5.0)
== END 2021-08-26 | disposition home or self-care (01) ==
LOC: LAB FS 14:54
PROVIDERS: ATTEND Nurse Practitioner Adult Health
DX: C34.2 Malignant neoplasm of middle lobe, bronchus or lung (principal); C79.31 Secondary malignant neoplasm of brain; C78.7 Secondary malignant neoplasm of liver and intrahepatic bile duct; C79.51 Secondary malignant neoplasm of bone; Z92.21 Personal history of antineoplastic chemotherapy
CPT/HCPCS: 36415; 80048; 85025

== ENCOUNTER 2021-08-23 14:28 | Outpatient (RCR) | payer MEDICAID ==
[2021-08-23 14:47] LABS: BASOPHILS % (AUTO) 0 % (0-10); EOSINOPHILS % (AUTO) 0 % (0-10); HEMATOCRIT 32 % (35-52); HEMOGLOBIN 10.4 g/dL (11.5-16.0); LYMPHOCYTES # (AUTO) 2.5 10^3/uL (1.0-4.0); LYMPHOCYTES % (AUTO) 34 % (12-44); MEAN CORPUSCULAR HEMOGLOBIN 30 pg (25-34); MEAN CORPUSCULAR HGB CONC 33 g/dL (32-36); MEAN CORPUSCULAR VOLUME 92 fL (80-99); MEAN PLATELET VOLUME 9.5 fL (9.0-12.2); MONOCYTES # (AUTO) 0.2 10^3/uL (0.0-1.0); MONOCYTES % (AUTO) 2 % (0-12); NEUTROPHILS # (AUTO) 4.6 10^3/uL (1.8-7.8); NEUTROPHILS % (AUTO) 63 % (42-75); PLATELET COUNT 165 10^3/uL (130-400); WHITE BLOOD COUNT 7.3 10^3/uL (4.3-11.0)
[2021-08-23 15:11] LABS: POTASSIUM 3.7 MMOL/L (3.6-5.0)
[2021-08-23 15:12] LABS: CREATININE SERUM 0.79 MG/DL (0.60-1.30)
== END 2021-08-26 | disposition home or self-care (01) ==
LOC: LAB FS 14:28
PROVIDERS: ATTEND Nurse Practitioner Adult Health
DX: C34.2 Malignant neoplasm of middle lobe, bronchus or lung (principal); C79.31 Secondary malignant neoplasm of brain; C78.7 Secondary malignant neoplasm of liver and intrahepatic bile duct; C79.51 Secondary malignant neoplasm of bone; Z92.21 Personal history of antineoplastic chemotherapy
CPT/HCPCS: 36415; 80048; 85025

== ENCOUNTER 2021-09-01 11:55 | Outpatient (RCR) | payer MEDICAID ==
[2021-09-01 12:10] LABS: BASOPHILS % (AUTO) 0 % (0-10); EOSINOPHILS % (AUTO) 1 % (0-10); HEMATOCRIT 28 % (35-52); LYMPHOCYTES % (AUTO) 58 % (12-44); MEAN CORPUSCULAR HEMOGLOBIN 30 pg (25-34); MEAN CORPUSCULAR HGB CONC 32 g/dL (32-36); MEAN CORPUSCULAR VOLUME 95 fL (80-99); MEAN PLATELET VOLUME 11.8 fL (9.0-12.2); MONOCYTES # (AUTO) 0.3 10^3/uL (0.0-1.0); MONOCYTES % (AUTO) 8 % (0-12); NEUTROPHILS # (AUTO) 1.1 10^3/uL (1.8-7.8); NEUTROPHILS % (AUTO) 33 % (42-75); PLATELET COUNT 64 10^3/uL (130-400); WHITE BLOOD COUNT 3.4 10^3/uL (4.3-11.0)
[2021-09-01 12:41] LABS: CALCIUM 9.2 MG/DL (8.5-10.1); CREATININE SERUM 0.81 MG/DL (0.60-1.30); POTASSIUM 3.5 MMOL/L (3.6-5.0)
== END 2021-09-26 | disposition home or self-care (01) ==
LOC: LAB FS 11:55
PROVIDERS: ATTEND Nurse Practitioner Adult Health
DX: Z01.89 Encounter for other specified special examinations (principal)
CPT/HCPCS: 36415; 80048; 85025

== ENCOUNTER → 2021-09-07 | Outpatient (CLI) | payer MEDICAID ==
--- NOTE | 2021-09-07 16:03 | Diagnostic Imaging Report ---
Indication: Metastatic lung cancer. Compared with whole-body bone scan 06/15/2021. This patient received 24.4 mCi intravenous dose technetium 99 MDP after 3 hours whole-body planar imaging performed. Findings: There is new indeterminate elevated uptake seen in the posterior views in the left sacrum at its mid to lower 3rd. This is of uncertain significance in etiology but does reflect a change from prior. I consider anatomic imaging with CT through through that level as clinically warranted. The remaining axial and appendicular skeleton appeared sonographically unremarkable with mild long bone degenerative uptake chronic. Impression: 1. Solitary new equivocal uptake left sacrum posteriorly seen only in the posterior views, this could conceivably reflect overlying skin contaminant artifact but it does appear to project confined to the bone itself. If clinically indicated, CT through that level may provide utility to see if its changed from priors. 2. No other potential scintigraphic evidence of bony metastasis or other changes from prior. Dictated by: Dictated on workstation # [id number]
== END ==
LOC: CARD 10:47
PROVIDERS: ATTEND Internal Medicine Hematology & Oncology
DX: C34.2 Malignant neoplasm of middle lobe, bronchus or lung (principal); C79.51 Secondary malignant neoplasm of bone; C78.7 Secondary malignant neoplasm of liver and intrahepatic bile duct
CPT/HCPCS: 78306; A9503

== ENCOUNTER → 2021-09-20 | Outpatient (CLI) | payer MEDICAID ==
[2021-09-20 16:41] LABS: BASOPHILS % (AUTO) 0 % (0-10); EOSINOPHILS % (AUTO) 0 % (0-10); HEMATOCRIT 29 % (35-52); HEMOGLOBIN 9.6 g/dL (11.5-16.0); LYMPHOCYTES # (AUTO) 1.8 10^3/uL (1.0-4.0); LYMPHOCYTES % (AUTO) 27 % (12-44); MEAN CORPUSCULAR HEMOGLOBIN 30 pg (25-34); MEAN CORPUSCULAR HGB CONC 33 g/dL (32-36); MEAN CORPUSCULAR VOLUME 91 fL (80-99); MEAN PLATELET VOLUME 10.3 fL (9.0-12.2); MONOCYTES # (AUTO) 0.2 10^3/uL (0.0-1.0); MONOCYTES % (AUTO) 3 % (0-12); NEUTROPHILS # (AUTO) 4.4 10^3/uL (1.8-7.8); NEUTROPHILS % (AUTO) 69 % (42-75); PLATELET COUNT 141 10^3/uL (130-400); WHITE BLOOD COUNT 6.5 10^3/uL (4.3-11.0)
[2021-09-20 17:08] LABS: CREATININE SERUM 0.8 MG/DL (0.60-1.30); POTASSIUM 3.7 MMOL/L (3.6-5.0)
[2021-09-20 17:09] LABS: CALCIUM 8.7 MG/DL (8.5-10.1)
== END ==
LOC: LAB FS 16:26
PROVIDERS: ATTEND Emergency Medicine
DX: Z51.11 Encounter for antineoplastic chemotherapy (principal); C34.2 Malignant neoplasm of middle lobe, bronchus or lung; C79.51 Secondary malignant neoplasm of bone; C78.7 Secondary malignant neoplasm of liver and intrahepatic bile duct; C79.31 Secondary malignant neoplasm of brain
CPT/HCPCS: 36415; 80048; 85025

== ENCOUNTER 2021-09-29 08:58 | Outpatient (RCR) | payer MEDICAID ==
[2021-09-29 09:15] LABS: BASOPHILS % (AUTO) 0 % (0-10); EOSINOPHILS # (AUTO) 0.1 10^3/uL (0.0-0.3); EOSINOPHILS % (AUTO) 2 % (0-10); HEMATOCRIT 27 % (35-52); HEMOGLOBIN 8.5 g/dL (11.5-16.0); LYMPHOCYTES # (AUTO) 1.4 10^3/uL (1.0-4.0); LYMPHOCYTES % (AUTO) 44 % (12-44); MEAN CORPUSCULAR HEMOGLOBIN 30 pg (25-34); MEAN CORPUSCULAR HGB CONC 32 g/dL (32-36); MEAN CORPUSCULAR VOLUME 95 fL (80-99); MEAN PLATELET VOLUME 12.4 fL (9.0-12.2); MONOCYTES # (AUTO) 0.2 10^3/uL (0.0-1.0); MONOCYTES % (AUTO) 8 % (0-12); NEUTROPHILS # (AUTO) 1.4 10^3/uL (1.8-7.8); NEUTROPHILS % (AUTO) 47 % (42-75); PLATELET COUNT 65 10^3/uL (130-400); WHITE BLOOD COUNT 3.1 10^3/uL (4.3-11.0)
[2021-09-29 09:57] LABS: POTASSIUM 3.8 MMOL/L (3.6-5.0)
[2021-09-29 09:58] LABS: CALCIUM 9.4 MG/DL (8.5-10.1); CREATININE SERUM 0.76 MG/DL (0.60-1.30)
== END 2021-10-27 | disposition home or self-care (01) ==
LOC: LAB FS 08:58
PROVIDERS: ATTEND Nurse Practitioner Adult Health
DX: Z51.11 Encounter for antineoplastic chemotherapy (principal); C34.2 Malignant neoplasm of middle lobe, bronchus or lung; C78.7 Secondary malignant neoplasm of liver and intrahepatic bile duct
CPT/HCPCS: 36415; 80048; 85025

== ENCOUNTER 2021-10-07 08:32 | Outpatient (RCR) | payer MEDICAID ==
[2021-10-07 08:48] LABS: BASOPHILS % (AUTO) 0 % (0-10); EOSINOPHILS # (AUTO) 0.1 10^3/uL (0.0-0.3); EOSINOPHILS % (AUTO) 1 % (0-10); HEMATOCRIT 29 % (35-52); LYMPHOCYTES # (AUTO) 1.7 10^3/uL (1.0-4.0); LYMPHOCYTES % (AUTO) 46 % (12-44); MEAN CORPUSCULAR HEMOGLOBIN 29 pg (25-34); MEAN CORPUSCULAR HGB CONC 31 g/dL (32-36); MEAN CORPUSCULAR VOLUME 95 fL (80-99); MEAN PLATELET VOLUME 10.1 fL (9.0-12.2); MONOCYTES # (AUTO) 0.5 10^3/uL (0.0-1.0); MONOCYTES % (AUTO) 14 % (0-12); NEUTROPHILS # (AUTO) 1.4 10^3/uL (1.8-7.8); NEUTROPHILS % (AUTO) 37 % (42-75); PLATELET COUNT 194 10^3/uL (130-400); WHITE BLOOD COUNT 3.6 10^3/uL (4.3-11.0)
[2021-10-07 09:36] LABS: POTASSIUM 3.8 MMOL/L (3.6-5.0)
[2021-10-07 09:37] LABS: CALCIUM 9.2 MG/DL (8.5-10.1); CREATININE SERUM 0.88 MG/DL (0.60-1.30)
== END 2021-10-27 | disposition home or self-care (01) ==
LOC: LAB FS 08:32
PROVIDERS: ATTEND Nurse Practitioner Adult Health
DX: Z51.11 Encounter for antineoplastic chemotherapy (principal); C34.2 Malignant neoplasm of middle lobe, bronchus or lung; C78.7 Secondary malignant neoplasm of liver and intrahepatic bile duct
CPT/HCPCS: 36415; 80048; 85025; 85027

== ENCOUNTER 2021-11-04 08:21 | Outpatient (RCR) | payer MEDICAID ==
[2021-11-04 08:35] LABS: BASOPHILS % (AUTO) 0 % (0-10); EOSINOPHILS # (AUTO) 0.1 10^3/uL (0.0-0.3); EOSINOPHILS % (AUTO) 2 % (0-10); HEMATOCRIT 30 % (35-52); HEMOGLOBIN 9.4 g/dL (11.5-16.0); LYMPHOCYTES # (AUTO) 1.4 10^3/uL (1.0-4.0); LYMPHOCYTES % (AUTO) 35 % (12-44); MEAN CORPUSCULAR HEMOGLOBIN 30 pg (25-34); MEAN CORPUSCULAR HGB CONC 31 g/dL (32-36); MEAN CORPUSCULAR VOLUME 95 fL (80-99); MEAN PLATELET VOLUME 10.5 fL (9.0-12.2); MONOCYTES # (AUTO) 0.6 10^3/uL (0.0-1.0); MONOCYTES % (AUTO) 14 % (0-12); NEUTROPHILS # (AUTO) 1.9 10^3/uL (1.8-7.8); NEUTROPHILS % (AUTO) 48 % (42-75); PLATELET COUNT 202 10^3/uL (130-400); WHITE BLOOD COUNT 3.9 10^3/uL (4.3-11.0)
[2021-11-04 09:01] LABS: CREATININE SERUM 0.9 MG/DL (0.60-1.30); POTASSIUM 3.5 MMOL/L (3.6-5.0)
[2021-11-04 09:02] LABS: CALCIUM 9.2 MG/DL (8.5-10.1)
== END 2021-11-26 | disposition home or self-care (01) ==
LOC: LAB FS 08:21
PROVIDERS: ATTEND Nurse Practitioner Adult Health
DX: C34.2 Malignant neoplasm of middle lobe, bronchus or lung (principal); C78.7 Secondary malignant neoplasm of liver and intrahepatic bile duct
CPT/HCPCS: 36415; 80048; 85025

== ENCOUNTER → 2021-11-15 | Outpatient (CLI) | payer MEDICAID ==
[2021-11-15 17:21] LABS: BASOPHILS % (AUTO) 0 % (0-10); EOSINOPHILS % (AUTO) 0 % (0-10); HEMATOCRIT 29 % (35-52); HEMOGLOBIN 9.4 g/dL (11.5-16.0); LYMPHOCYTES # (AUTO) 2.2 10^3/uL (1.0-4.0); LYMPHOCYTES % (AUTO) 23 % (12-44); MEAN CORPUSCULAR HEMOGLOBIN 29 pg (25-34); MEAN CORPUSCULAR HGB CONC 32 g/dL (32-36); MEAN CORPUSCULAR VOLUME 91 fL (80-99); MEAN PLATELET VOLUME 10.6 fL (9.0-12.2); MONOCYTES # (AUTO) 0.2 10^3/uL (0.0-1.0); MONOCYTES % (AUTO) 2 % (0-12); NEUTROPHILS # (AUTO) 7.1 10^3/uL (1.8-7.8); NEUTROPHILS % (AUTO) 74 % (42-75); PLATELET COUNT 128 10^3/uL (130-400); WHITE BLOOD COUNT 9.6 10^3/uL (4.3-11.0)
[2021-11-15 18:17] LABS: CALCIUM 8.9 MG/DL (8.5-10.1); CREATININE SERUM 0.79 MG/DL (0.60-1.30); POTASSIUM 3.6 MMOL/L (3.6-5.0)
== END ==
LOC: LAB FS 16:57
PROVIDERS: ATTEND Nurse Practitioner Adult Health
DX: Z51.11 Encounter for antineoplastic chemotherapy (principal); C34.2 Malignant neoplasm of middle lobe, bronchus or lung; C78.7 Secondary malignant neoplasm of liver and intrahepatic bile duct
CPT/HCPCS: 36415; 80048; 85025

== ENCOUNTER → 2021-12-03 | Outpatient (CLI) | payer MEDICAID ==
--- NOTE | 2021-12-03 16:24 | Diagnostic Imaging Report ---
INDICATION: Lung cancer. COMPARISON: 09/07/2021. TECHNIQUE: 26 mCi tech 99m MDP was given IV. 3 hour delayed whole body bone imaging. FINDINGS: Good uptake seen throughout the skeletal system. The equivocal area of increased uptake along the right sacral ala on the previous exam is not demonstrated today. No new foci of abnormal uptake is seen. IMPRESSION: Normal whole body bone scan. The sacral uptake noted previously is not present today. Dictated by: Dictated on workstation # [id number]
== END ==
LOC: CARD 10:49
PROVIDERS: ATTEND Internal Medicine Hematology & Oncology
DX: C34.2 Malignant neoplasm of middle lobe, bronchus or lung (principal); C79.51 Secondary malignant neoplasm of bone; C78.7 Secondary malignant neoplasm of liver and intrahepatic bile duct
CPT/HCPCS: 78306; A9503

== ENCOUNTER → 2022-02-24 | Outpatient (CLI) | payer MEDICAID ==
[~2022-02-24] MED LIST changes: +ALBU8.5H6 IH; -RT-ALBUINH IH
--- NOTE | 2022-02-24 20:13 | Diagnostic Imaging Report ---
Exam: Nuclear medicine whole body bone scan. Date: February 24, 2022 Indication: 51-year-old female, history of lung cancer. Evaluation for bone metastasis. Comparison: Nuclear medicine whole body bone scan December 03, 2021. CT chest, abdomen and pelvis March 15, 2021. Findings: 23.8 mCi of technetium labeled "MDP radiotracer" was administered. Delayed subsequent whole-body bone scan images were subsequently obtained. There is no currently identified radiotracer avid bone lesion. Impression: No currently identified radiotracer avid bone metastasis. Dictated by: Dictated on workstation # [id number]
== END ==
LOC: CARD 11:12
PROVIDERS: ATTEND Internal Medicine Hematology & Oncology
DX: C34.2 Malignant neoplasm of middle lobe, bronchus or lung (principal); C78.7 Secondary malignant neoplasm of liver and intrahepatic bile duct; C79.51 Secondary malignant neoplasm of bone; C79.31 Secondary malignant neoplasm of brain
CPT/HCPCS: 78306; A9503

== ENCOUNTER → 2022-05-20 | Outpatient (CLI) | payer MEDICAID ==
--- NOTE | 2022-05-20 16:44 | Diagnostic Imaging Report ---
INDICATION: Lung cancer with metastatic disease to the brain, liver, and bone. COMPARISON: 02/24/2022 Tc-99m MDP 44.7 mCi IV FINDINGS: The skeleton was imaged in anterior and posterior views with the moving gamma camera. There is normal distribution of tracer throughout the skeleton. There is an area of asymmetric uptake projecting over the medial tibial plateau of the left knee. This is stable compared to 11/23/2020, but does appear to be new when compared to 07/23/2020. This may be degenerative or postoperative in nature. No other abnormal focal area of increased or decreased tracer accumulation is identified. IMPRESSION: 1. No evidence of osteoblastic metastatic disease. 2. Area of asymmetric uptake involving the medial tibial plateau of the left knee. Correlation with surgical history is advised. Dictated by: Dictated on workstation # [id number]
== END ==
LOC: CARD 10:44
PROVIDERS: ATTEND Nurse Practitioner Adult Health
DX: C34.2 Malignant neoplasm of middle lobe, bronchus or lung (principal); C79.31 Secondary malignant neoplasm of brain; C78.7 Secondary malignant neoplasm of liver and intrahepatic bile duct; C79.51 Secondary malignant neoplasm of bone
CPT/HCPCS: 78306; A9503

== ENCOUNTER → 2022-08-12 | Outpatient (CLI) | payer MEDICAID ==
--- NOTE | 2022-08-12 16:15 | Diagnostic Imaging Report ---
INDICATION: Right lung carcinoma. TECHNIQUE: Patient was administered 24.8 mCi technetium 99m MDP intravenously and whole body imaging was performed after a three-hour delay. COMPARISON: Correlation is made with prior whole body bone scan from 05/20/2022. FINDINGS: There is normal uptake of activity by the axial and appendicular skeleton. There is uptake by the kidneys with excretion into the urinary bladder. Mild uptake in the region of the medial proximal left tibia is again noted and unchanged. No suspicious foci are identified to suggest osseous metastatic disease. IMPRESSION: Stable whole body bone scan. There is no scintigraphic evidence of osseous metastatic disease. Dictated by: Dictated on workstation # [id number]
== END ==
LOC: CARD 10:14
PROVIDERS: ATTEND Nurse Practitioner Adult Health
DX: Z51.11 Encounter for antineoplastic chemotherapy (principal); C34.2 Malignant neoplasm of middle lobe, bronchus or lung; C78.7 Secondary malignant neoplasm of liver and intrahepatic bile duct; C79.31 Secondary malignant neoplasm of brain; C79.51 Secondary malignant neoplasm of bone
CPT/HCPCS: 78306; A9503

== ENCOUNTER → 2022-11-04 | Outpatient (CLI) | payer MEDICAID ==
--- NOTE | 2022-11-04 13:43 | Diagnostic Imaging Report ---
INDICATION: Right lung carcinoma. Patient was administered 26.6 mCi technetium 99m MDP intravenously and whole-body imaging was performed after a three-hour delay. Correlation is made with prior whole body bone scan from 08/12/2022. The bone scan remains unremarkable apart from a subtle focus of slightly increased activity involving a right posterior rib. This appears to be approximately the right posterior 9th rib. No other suspicious foci are identified. There is physiologic activity through the area throughout the axial and appendicular skeleton. There is uptake by the kidneys with excretion to urinary bladder. IMPRESSION: Tiny focus of slightly increased uptake involving right posterior lower rib, perhaps approximately the 9th rib. While this could be posttraumatic, solitary metastasis cannot be entirely excluded and continued followup would be recommended. Dictated by: Dictated on workstation # [id number]
== END ==
LOC: CARD 09:43
PROVIDERS: ATTEND Nurse Practitioner
DX: C34.2 Malignant neoplasm of middle lobe, bronchus or lung (principal); C79.51 Secondary malignant neoplasm of bone
CPT/HCPCS: 78306; A9503

== ENCOUNTER → 2022-11-29 | Outpatient (CLI) | payer MEDICAID ==
[2022-11-29 16:07] LABS: BASOPHILS % (AUTO) 0 % (0-10); EOSINOPHILS # (AUTO) 0.1 10^3/uL (0.0-0.3); EOSINOPHILS % (AUTO) 3 % (0-10); HEMATOCRIT 28 % (35-52); HEMOGLOBIN 8.8 g/dL (11.5-16.0); LYMPHOCYTES # (AUTO) 1.4 10^3/uL (1.0-4.0); LYMPHOCYTES % (AUTO) 83 % (12-44); MEAN CORPUSCULAR HEMOGLOBIN 29 pg (25-34); MEAN CORPUSCULAR HGB CONC 32 g/dL (32-36); MEAN CORPUSCULAR VOLUME 91 fL (80-99); MEAN PLATELET VOLUME 12.3 fL (9.0-12.2); MONOCYTES % (AUTO) 1 % (0-12); NEUTROPHILS # (AUTO) 0.2 10^3/uL (1.8-7.8); NEUTROPHILS % (AUTO) 13 % (42-75); PLATELET COUNT 54 10^3/uL (130-400); WHITE BLOOD COUNT 1.6 10^3/uL (4.3-11.0)
[2022-11-29 16:20] LABS: CALCIUM 8.8 MG/DL (8.5-10.1); CREATININE SERUM 0.66 MG/DL (0.60-1.30); POTASSIUM 3.8 MMOL/L (3.6-5.0)
[2022-11-29 16:38] LABS: LYMPHOCYTES % (MANUAL) 86 %; NEUTROPHILS % (MANUAL) 14 %; NUCLEATED RED BLOOD CELLS 1
[2022-11-29 16:39] LABS: ANISOCYTOSIS SLIGHT; HYPOCHROMASIA SLIGHT; PLATELET ESTIMATE DECREASED; POIKILOCYTOSIS SLIGHT
== END ==
LOC: LAB FS 15:16
PROVIDERS: ATTEND Nurse Practitioner Adult Health
DX: Z51.11 Encounter for antineoplastic chemotherapy (principal); C34.2 Malignant neoplasm of middle lobe, bronchus or lung; C78.7 Secondary malignant neoplasm of liver and intrahepatic bile duct; C79.31 Secondary malignant neoplasm of brain; C79.51 Secondary malignant neoplasm of bone
CPT/HCPCS: 36415; 80048; 85007; 85027

== ENCOUNTER → 2022-12-08 | Outpatient (CLI) | payer MEDICAID ==
[2022-12-08 09:08] LABS: POTASSIUM 3.4 MMOL/L (3.6-5.0)
[2022-12-08 09:09] LABS: CALCIUM 7.4 MG/DL (8.5-10.1); CREATININE SERUM 0.76 MG/DL (0.60-1.30)
[2022-12-08 10:08] LABS: BASOPHILS % (AUTO) 1 % (0-10); EOSINOPHILS % (AUTO) 0 % (0-10); HEMATOCRIT 25 % (35-52); HEMOGLOBIN 7.9 g/dL (11.5-16.0); LYMPHOCYTES # (AUTO) 1.7 10^3/uL (1.0-4.0); LYMPHOCYTES % (AUTO) 28 % (12-44); MEAN CORPUSCULAR HEMOGLOBIN 29 pg (25-34); MEAN CORPUSCULAR HGB CONC 32 g/dL (32-36); MEAN CORPUSCULAR VOLUME 92 fL (80-99); MONOCYTES # (AUTO) 0.8 10^3/uL (0.0-1.0); MONOCYTES % (AUTO) 13 % (0-12); NEUTROPHILS % (AUTO) 50 % (42-75)
[2022-12-08 10:13] LABS: PLATELET COUNT 39 10^3/uL (130-400)
[2022-12-08 10:15] LABS: BAND NEUTROPHILS 16 %; LYMPHOCYTES % (MANUAL) 29 %; NEUTROPHILS % (MANUAL) 47 %
[2022-12-08 10:16] LABS: BASOPHILS % (MANUAL) 0 %; EOSINOPHILS % (MANUAL) 0 %; HYPOCHROMASIA SLIGHT; METAMYELOCYTES % 2 %; MONOCYTES % (MANUAL) 4 %; MYELOCYTES % 2 %; NUCLEATED RED BLOOD CELLS 1; POIKILOCYTOSIS SLIGHT; POLYCHROMASIA SLIGHT
[2022-12-08 10:17] LABS: ANISOCYTOSIS MODERATE
[2022-12-08 10:18] LABS: ELLIPT/OVALOCYTES SLIGHT; HELMET/BITE CELLS RARE; STOMATOCYTES SLIGHT; TEAR DROP CELLS SLIGHT
[2022-12-08 10:19] LABS: PLATELET ESTIMATE DECREASED
== END ==
LOC: LAB FS 08:18
PROVIDERS: ATTEND Nurse Practitioner Adult Health
DX: Z51.11 Encounter for antineoplastic chemotherapy (principal); C34.2 Malignant neoplasm of middle lobe, bronchus or lung; C78.7 Secondary malignant neoplasm of liver and intrahepatic bile duct; C79.31 Secondary malignant neoplasm of brain; C79.51 Secondary malignant neoplasm of bone
CPT/HCPCS: 36415; 80048; 85007; 85027

== ENCOUNTER 2022-12-19 08:31 | Outpatient (RCR) | payer MEDICAID ==
[2022-12-19 08:49] LABS: BASOPHILS % (AUTO) 1 % (0-10); EOSINOPHILS % (AUTO) 0 % (0-10); HEMATOCRIT 26 % (35-52); HEMOGLOBIN 8.2 g/dL (11.5-16.0); LYMPHOCYTES # (AUTO) 1.1 10^3/uL (1.0-4.0); LYMPHOCYTES % (AUTO) 33 % (12-44); MEAN CORPUSCULAR HEMOGLOBIN 30 pg (25-34); MEAN CORPUSCULAR HGB CONC 32 g/dL (32-36); MEAN CORPUSCULAR VOLUME 93 fL (80-99); MEAN PLATELET VOLUME 12.3 fL (9.0-12.2); MONOCYTES # (AUTO) 0.1 10^3/uL (0.0-1.0); MONOCYTES % (AUTO) 3 % (0-12); NEUTROPHILS % (AUTO) 63 % (42-75); PLATELET COUNT 85 10^3/uL (130-400); WHITE BLOOD COUNT 3.2 10^3/uL (4.3-11.0)
[2022-12-19 09:38] LABS: CREATININE SERUM 0.73 MG/DL (0.60-1.30); POTASSIUM 4.1 MMOL/L (3.6-5.0)
[2022-12-19 09:39] LABS: CALCIUM 9.5 MG/DL (8.5-10.1)
== END 2022-12-27 | disposition home or self-care (01) ==
LOC: LAB FS 08:31
PROVIDERS: ATTEND Nurse Practitioner Adult Health
DX: C34.2 Malignant neoplasm of middle lobe, bronchus or lung (principal); C78.7 Secondary malignant neoplasm of liver and intrahepatic bile duct; C79.31 Secondary malignant neoplasm of brain; C79.51 Secondary malignant neoplasm of bone
CPT/HCPCS: 36415; 80048; 85025

== ENCOUNTER → 2023-01-27 | Outpatient (CLI) | payer MEDICAID ==
--- NOTE | 2023-01-27 13:14 | Diagnostic Imaging Report ---
INDICATION: History of lung cancer. COMPARISON: 11/04/2022. Tc-99m MDP 25.5 mCi IV FINDINGS: The skeleton was imaged in anterior and posterior views with the moving gamma camera. There is normal distribution of tracer throughout the skeleton. Single focus of uptake is again identified involving the posterior right rib; presumably the ninth rib. This is stable compared to 11/04/2022. No new osteoblastic activity is seen. IMPRESSION: 1. Stable whole body bone scan showing single focus of uptake involving a posterior right rib. Findings can be seen with previous trauma. Solitary metastatic focus however cannot be excluded. Correlation with CT of the chest may be of benefit. Dictated by: Dictated on workstation # [id number]
== END ==
LOC: CARD 09:02
PROVIDERS: ATTEND Internal Medicine Hematology & Oncology
DX: Z51.11 Encounter for antineoplastic chemotherapy (principal); C34.2 Malignant neoplasm of middle lobe, bronchus or lung; C79.51 Secondary malignant neoplasm of bone; C78.7 Secondary malignant neoplasm of liver and intrahepatic bile duct; C79.31 Secondary malignant neoplasm of brain
CPT/HCPCS: 78306; A9503